=== PATIENT | male | born 1955 | race Caucasian/White ===

== ENCOUNTER 2019-02-10 19:34 | Inpatient (IN) | payer OTHER ==
[~2019-02-10] VITALS: Ht 177.8 cm; Wt 45.6 kg
[2019-02-10] MEDS ORDERED: IV NORMAL SALINE 1,000ML 1,000 ML IV SCH (20:11)
[2019-02-10 20:25] LABS: BASO # 0.1 x10^3/uL (0.0-0.2); BASO % 1 % (0-3); EOS # 0.1 x10^3/uL (0.0-0.7); EOS % 2 % (0-3); HEMATOCRIT 43.7 % (39.0-53.0); HEMOGLOBIN 15.1 g/dL (13.0-17.5); LYMPH # 1.2 x10^3/uL (1.0-4.8); LYMPH % 21 % (24-48); MEAN CORPUSCULAR HEMOGLOBIN 32 pg (25-35); MEAN CORPUSCULAR HGB CONC 35 g/dL (31-37); MEAN CORPUSCULAR VOLUME 92 fL (79-100); MONO # 0.5 x10^3/uL (0.0-1.1); MONO % 9 % (0-9); NEUT # 3.8 x10^3uL (1.8-7.7); NEUT % 67 % (31-73); PLATELET COUNT 224 x10^3/uL (140-400); RED BLOOD COUNT 4.76 x10^6/uL (4.30-5.70); RED CELL DISTRIBUTION WIDTH 13.9 % (11.5-14.5); WHITE BLOOD COUNT 5.8 x10^3/uL (4.0-11.0)
--- NOTE | 2019-02-10 20:41 | PHYS DOC ---
Adult General Chief Complaint Chief Complaint: PSYCH EVALUATION HPI HPI Patient is a 63-year-old male who presents from nursing facility to be cleared medically for admission into [facility]. Patient indicates that he has been having some difficulties at the nursing facility because they have been placing him with new roommates that he has not been familiar with and states that his most recent one is homosexual. Patient states that it makes him feel nervous as he is not sure what he might wake up to. He denies any chest pain or shortness breath. He also denies any fever. He does indicate that he has had some thoughts of self-harm because he feels very helpless.[] Review of Systems Review of Systems Constitutional: Denies fever or chills [] Respiratory: Denies cough or shortness of breath [] Cardiovascular: No additional information not addressed in HPI [] GI: Denies abdominal pain, nausea, vomiting, bloody stools or diarrhea [] Integument: Denies rash or skin lesions [] Neurologic: Denies headache, focal weakness or sensory changes [] All other systems were reviewed and found to be within normal limits, except as documented in this note. Current Medications Current Medications Current Medications Medications (Trade) Dose Ordered Sig/Jacqueline Start Time Stop Time Status Last Admin Dose Admin Sodium Chloride 1,000 ml @ 1,000 mls/hr Q1H 02/10/19 20:11 02/10/19 21:10 UNV 02/10/19 20:18 1,000 MLS/HR Physical Exam Physical Exam Constitutional: Well developed, well nourished, no acute distress, non-toxic appearance. [] HENT: Normocephalic, atraumatic, bilateral external ears normal, oropharynx moist, no oral exudates, nose normal. [] Eyes: PERRLA, EOMI, conjunctiva normal. [] Neck: Normal range of motion, no tenderness, supple. [] Cardiovascular:Heart rate regular rhythm [] Lungs & Thorax: Bilateral breath sounds clear to auscultation [] Abdomen: Bowel sounds normal, soft, no tenderness. [] Skin: Warm, dry, no erythema, no rash. [] Extremities: No tenderness, no cyanosis, no clubbing, ROM intact. [] Neurologic: Alert and oriented X 3, no focal deficits noted. [] Current Patient Data Lab Results Laboratory Tests Test 02/10/19 20:05 White Blood Count 5.8 x10^3/uL (4.0-11.0) Red Blood Count 4.76 x10^6/uL (4.30-5.70) Hemoglobin 15.1 g/dL (13.0-17.5) Hematocrit 43.7 % (39.0-53.0) Mean Corpuscular Volume 92 fL (79-100) Mean Corpuscular Hemoglobin 32 pg (25-35) Mean Corpuscular Hemoglobin Concent 35 g/dL (31-37) Red Cell Distribution Width 13.9 % (11.5-14.5) Platelet Count 224 x10^3/uL (140-400) Neutrophils (%) (Auto) 67 % (31-73) Lymphocytes (%) (Auto) 21 % (24-48) L Monocytes (%) (Auto) 9 % (0-9) Eosinophils (%) (Auto) 2 % (0-3) Basophils (%) (Auto) 1 % (0-3) Neutrophils # (Auto) 3.8 x10^3uL (1.8-7.7) Lymphocytes # (Auto) 1.2 x10^3/uL (1.0-4.8) Monocytes # (Auto) 0.5 x10^3/uL (0.0-1.1) Eosinophils # (Auto) 0.1 x10^3/uL (0.0-0.7) Basophils # (Auto) 0.1 x10^3/uL (0.0-0.2) EKG EKG [] Radiology/Procedures Radiology/Procedures [] Course & Med Decision Making Course & Med Decision Making Pertinent Labs and Imaging studies reviewed. (See chart for details) [] Dragon Disclaimer Dragon Disclaimer This electronic medical record was generated, in whole or in part, using a voice recognition dictation system. Departure Departure: Impression: Primary Impression: Depression Additional Impression: Medical clearance for psychiatric admission Disposition: ADMITTED INPATIENT Admitting Physician: Other (Dr. Golden) Condition: STABLE Referrals: SANDRA ALDRICH DO (PCP) Problem Qualifiers Primary Impression: Depression Depression Type: unspecified Qualified Codes: F32.9 - Major depressive disorder, single episode, unspecified JAVED WESTFALL Jr., DO February 10, 2019 20:41
[2019-02-10 20:43] LABS: ALBUMIN 3.5 g/dL (3.4-5.0); CALCIUM 9.5 mg/dL (8.5-10.1); CREATININE 1.1 mg/dL (0.7-1.3); GFR 68.1; POTASSIUM 4.4 mmol/L (3.5-5.1); TOTAL BILIRUBIN 0.3 mg/dL (0.2-1.0)
[2019-02-10 22:13] VITALS: BP 176/93
--- NOTE | 2019-02-10 23:19 | PDOC ---
Exam Note: Hakan Note: Please also refer to the separate dictated note~for this date of service dictated separately. Discussed the patient with Nursing staff reviewed the chart.~Reviewed interim history and current functioning. Reviewed vital signs,~Labs/ Radiology~and current medications noted below. Continue current treatment with the changes noted in the dictated addendum note Assessment: Vital Signs: Vital Signs Date Time Temp Pulse Resp B/P (MAP) Pulse Ox O2 Delivery O2 Flow Rate FiO2 02/10/19 22:13 97.2 67 18 176/93 (120) 98 Room Air Labs: Laboratory Tests Test 02/10/19 20:05 White Blood Count 5.8 x10^3/uL (4.0-11.0) Red Blood Count 4.76 x10^6/uL (4.30-5.70) Hemoglobin 15.1 g/dL (13.0-17.5) Hematocrit 43.7 % (39.0-53.0) Mean Corpuscular Volume 92 fL (79-100) Mean Corpuscular Hemoglobin 32 pg (25-35) Mean Corpuscular Hemoglobin Concent 35 g/dL (31-37) Red Cell Distribution Width 13.9 % (11.5-14.5) Platelet Count 224 x10^3/uL (140-400) Neutrophils (%) (Auto) 67 % (31-73) Lymphocytes (%) (Auto) 21 % (24-48) L Monocytes (%) (Auto) 9 % (0-9) Eosinophils (%) (Auto) 2 % (0-3) Basophils (%) (Auto) 1 % (0-3) Neutrophils # (Auto) 3.8 x10^3uL (1.8-7.7) Lymphocytes # (Auto) 1.2 x10^3/uL (1.0-4.8) Monocytes # (Auto) 0.5 x10^3/uL (0.0-1.1) Eosinophils # (Auto) 0.1 x10^3/uL (0.0-0.7) Basophils # (Auto) 0.1 x10^3/uL (0.0-0.2) Sodium Level 142 mmol/L (136-145) Potassium Level 4.4 mmol/L (3.5-5.1) Chloride Level 104 mmol/L (98-107) Carbon Dioxide Level 35 mmol/L (21-32) H Anion Gap 3 (6-14) L Blood Urea Nitrogen 22 mg/dL (8-26) Creatinine 1.1 mg/dL (0.7-1.3) Estimated GFR (Cockcroft-Gault) 68.1 BUN/Creatinine Ratio 20 (6-20) Glucose Level 96 mg/dL (70-99) Calcium Level 9.5 mg/dL (8.5-10.1) Total Bilirubin 0.3 mg/dL (0.2-1.0) Aspartate Amino Transferase (AST) 18 U/L (15-37) Alanine Aminotransferase (ALT) 23 U/L (16-63) Alkaline Phosphatase 100 U/L (46-116) Total Protein 7.0 g/dL (6.4-8.2) Albumin 3.5 g/dL (3.4-5.0) Albumin/Globulin Ratio 1.0 (1.0-1.7) Ethyl Alcohol Level < 10 mg/dL (0-10) Current Medications: Meds: Current Medications Sodium Chloride 1,000 ml @ 1,000 mls/hr Q1H IV Last administered on 02/10/19at 20:18; Start 02/10/19 at 20:11; Stop 02/10/19 at 21:59; Status DC I have reviewed the current psychotropics carefully including drug interactions. Risk benefit ratio favors no change other than as noted in my dictated progress note. RASHAWN GRAVES MD February 10, 2019 23:19
[2019-02-11] MEDS ORDERED: ACET325T9 PO (00:54)
[2019-02-11] MEDS ORDERED: SENN1TAB29 PO (00:54)
[2019-02-11] MEDS ORDERED: GLYC1SUP31 RC (00:54)
[2019-02-11] MEDS ORDERED: MAGN2400 PO (00:54)
[2019-02-11] MEDS ORDERED: NA P133E2 RC (00:54)
[2019-02-11] MEDS ORDERED: DOCU-109 PO (00:54)
[2019-02-11] MEDS ORDERED: LACT10SO26 PO (00:54)
[2019-02-11] MEDS ORDERED: MAG HYDROX/AL HYDROX/SIMETH 30 ML ORAL.SUSP PO PRN (01:00)
[2019-02-11] MEDS ORDERED: MAGNESIUM HYDROXIDE 2,400 MG/30 ML ORAL.SUSP. PO PRN (01:00)
[2019-02-11] MEDS ORDERED: METHYL SALICYLATE/MENTHOL TOPICAL OINTMENT 29GM TUBE. TP PRN (01:00)
[2019-02-11] MEDS ORDERED: ACETAMINOPHEN 325 MG TABLET PO PRN (01:00)
[2019-02-11] MEDS ORDERED: GLYCERIN ADULT 1 SUPP.RECT. RC PRN (05:30)
[2019-02-11] MEDS ORDERED: SODIUM PHOSPHATES 19/7GM 133 ML ENEMA. RC PRN (05:30)
[2019-02-11] MEDS ORDERED: LACTULOSE 20 GM/30 ML SOLUTION. PO PRN (05:30)
[2019-02-11] MEDS ORDERED: ACETAMINOPHEN 325 MG TABLET PO SCH (05:30)
[2019-02-11 06:28] VITALS: BP 128/78
[2019-02-11 06:46] LABS: BACTERIA,URINE 0 /HPF (0-FEW); BILIRUBIN,URINE NEG (NEG); CLARITY,URINE CLEAR; COLOR,URINE YELLOW; GLUCOSE,URINE NEG (NEG); NITRITE,URINE NEG (NEG); RBC,URINE 0 /HPF (0-2); UROBILINOGEN,URINE 0.2 mg/dL (0.2 mg/dL); WBC,URINE RARE /HPF (0-4)
[2019-02-11] MEDS: DOCUSATE SODIUM 100 MG CAPSULE PO SCH (07:53)
--- NOTE | 2019-02-11 11:23 | EKG ---
[address] [address] Test Date: 2019-02-10 Test Time: 19:52:31 Pat Name: SALAZAR GALLAGHER Department: Room: Gender: M Internal Medicine Specialist: ELLIOTT : 1955 Requested By: JAVED WESTFALL Order Number: [id number] Reading MD: Measurements Intervals [place] Rate: 61 P: 62 FL: 148 QRS: -57 QRSD: 96 T: 38 QT: 424 QTc: 433 Interpretive Statements SINUS RHYTHM ABNORMAL LEFT AXIS DEVIATION LEFT ANTERIOR FASCICULAR BLOCK ABNORMAL ECG RI6.01 No previous ECG available for comparison
[2019-02-11 13:18] LABS: THYROID STIM HORMONE (TSH) 9.563 uIU/mL (0.358-3.740)
[2019-02-11 16:16] VITALS: BP 146/80
[2019-02-11 17:07] LABS: THYROXINE 9.7 ug/dL (4.5-12.0)
--- NOTE | 2019-02-11 19:58 | PDOC ---
Exam Note: Hakan Note: Admission Date: February 10, 2019 at 21:51 * A recertification for continued Inpatient Psychiatric Admission must be done on Day 12, Day 18 and Day 30. Please also refer to the separate dictated note~for this date of service dictated separately.~Patient seen individually. Discussed the patient with Nursing staff reviewed the chart.~Reviewed interim history and current functioning. Reviewed vital signs,~Labs/ Radiology~and current medications noted below. Continue current treatment with the changes noted in the dictated addendum note Assessment: Vital Signs: Vital Signs Date Time Temp Pulse Resp B/P (MAP) Pulse Ox O2 Delivery O2 Flow Rate FiO2 02/11/19 16:16 97.5 56 18 146/80 (102) 99 02/10/19 22:13 Room Air I&O Intake and Output 02/11/19 07:00 Intake Total 1120 ml Balance 1120 ml Intake Oral 120 ml IV Total 1000 ml Labs: Laboratory Tests Test 02/10/19 20:05 02/11/19 05:50 White Blood Count 5.8 x10^3/uL (4.0-11.0) Red Blood Count 4.76 x10^6/uL (4.30-5.70) Hemoglobin 15.1 g/dL (13.0-17.5) Hematocrit 43.7 % (39.0-53.0) Mean Corpuscular Volume 92 fL (79-100) Mean Corpuscular Hemoglobin 32 pg (25-35) Mean Corpuscular Hemoglobin Concent 35 g/dL (31-37) Red Cell Distribution Width 13.9 % (11.5-14.5) Platelet Count 224 x10^3/uL (140-400) Neutrophils (%) (Auto) 67 % (31-73) Lymphocytes (%) (Auto) 21 % (24-48) L Monocytes (%) (Auto) 9 % (0-9) Eosinophils (%) (Auto) 2 % (0-3) Basophils (%) (Auto) 1 % (0-3) Neutrophils # (Auto) 3.8 x10^3uL (1.8-7.7) Lymphocytes # (Auto) 1.2 x10^3/uL (1.0-4.8) Monocytes # (Auto) 0.5 x10^3/uL (0.0-1.1) Eosinophils # (Auto) 0.1 x10^3/uL (0.0-0.7) Basophils # (Auto) 0.1 x10^3/uL (0.0-0.2) Sodium Level 142 mmol/L (136-145) Potassium Level 4.4 mmol/L (3.5-5.1) Chloride Level 104 mmol/L (98-107) Carbon Dioxide Level 35 mmol/L (21-32) H Anion Gap 3 (6-14) L Blood Urea Nitrogen 22 mg/dL (8-26) Creatinine 1.1 mg/dL (0.7-1.3) Estimated GFR (Cockcroft-Gault) 68.1 BUN/Creatinine Ratio 20 (6-20) Glucose Level 96 mg/dL (70-99) Calcium Level 9.5 mg/dL (8.5-10.1) Total Bilirubin 0.3 mg/dL (0.2-1.0) Aspartate Amino Transferase (AST) 18 U/L (15-37) Alanine Aminotransferase (ALT) 23 U/L (16-63) Alkaline Phosphatase 100 U/L (46-116) Total Protein 7.0 g/dL (6.4-8.2) Albumin 3.5 g/dL (3.4-5.0) Albumin/Globulin Ratio 1.0 (1.0-1.7) Triglycerides Level 88 mg/dL (0-150) Cholesterol Level 183 mg/dL (0-200) LDL Cholesterol, Calculated 94 mg/dL (0-100) VLDL Cholesterol, Calculated 17 mg/dL (0-40) Non-HDL Cholesterol Calculated 111 mg/dL (0-129) HDL Cholesterol 72 mg/dL (40-60) H Cholesterol/HDL Ratio 2.0 Thyroid Stimulating Hormone (TSH) 9.563 uIU/mL (0.358-3.740) Thyroxine (T4) 9.7 ug/dL (4.5-12.0) Total Triiodothyronine (TT3) 112 ng/dL (71-180) Ethyl Alcohol Level < 10 mg/dL (0-10) Treponema pallidum Antibody Nonreactive (Nonreactive) Urine Collection Type Unknown Urine Color Yellow Urine Clarity Clear Urine pH 7.0 Urine Specific [place] 1.020 Urine Protein Neg (NEG-TRACE) Urine Glucose (UA) Neg mg/dL (NEG) Urine Ketones (Stick) Neg mg/dL (NEG) Urine Blood Neg (NEG) Urine Nitrite Neg (NEG) Urine Bilirubin Neg (NEG) Urine Urobilinogen Dipstick 0.2 mg/dL (0.2 mg/dL) Urine Leukocyte Esterase Neg (NEG) Urine RBC 0 /HPF (0-2) Urine WBC Rare /HPF (0-4) Urine Squamous Epithelial Cells None /LPF Urine Bacteria 0 /HPF (0-FEW) Urine Mucus Slight /LPF Current Medications: Meds: Current Medications Sodium Chloride 1,000 ml @ 1,000 mls/hr Q1H IV Last administered on 02/10/19at 20:18; Start 02/10/19 at 20:11; Stop 02/10/19 at 21:59; Status DC Acetaminophen (Tylenol) 650 mg PRN Q6HRS PRN PO PAIN / TEMP; Start 02/11/19 at 01:00; Status Cancel Multi-Ingredient Ointment (Analgesic [place]) 1 kyle PRN QID PRN TP MUSCLE PAIN; Start 02/11/19 at 01:00 Al Hydroxide/Mg Hydroxide (Mylanta Plus Xs) 15 ml PRN AFTMEALHC PRN PO DYSPEPSIA; Start 02/11/19 at 01:00 Magnesium Hydroxide (Milk Of Magnesia) 2,400 mg PRN QHS PRN PO CONSTIPATION; Start 02/11/19 at 01:00; Status Cancel Acetaminophen (Tylenol) 325 mg PRN Q4HRS PO ; Start 02/11/19 at 05:30 Sodium Biphosphate/ Sodium Phosphate (Fleet Adult) 133 ml PRN Q24HRS PRN RC CONSTIPATION; Start 02/11/19 at 05:30 Senna/Docusate Sodium (Senna Plus) 1 tab HS PO ; Start 02/11/19 at 21:00 Docusate Sodium (Colace) 100 mg DAILY PO Last administered on 02/11/19at 07:53; Start 02/11/19 at 09:00 Glycerin (Sani-Supp Adult) 1 supp PRN Q24HRS PRN RC CONSTIPATION; Start 02/11/19 at 05:30 Lactulose (Lactulose) 20 gm PRN Q24HRS PRN PO CONSTIPATION; Start 02/11/19 at 05:30 Magnesium Hydroxide (Milk Of Magnesia) 2,400 mg PRN Q24HRS PRN PO CONSTIPATION; Start 02/11/19 at 05:30 Risperidone (RisperDAL) 1 mg DAILY SL ; Start 02/12/19 at 09:00 Risperidone (RisperDAL CONSTA) 25 mg Q2WKS IM ; Start 02/14/19 at 09:00 Active Scripts Active Reported Tylenol (Acetaminophen) 325 Mg Tablet 1 Tab PO PRN Q4HRS Senna Laxative Tablet (Sennosides/Docusate Sodium) 1 Each Tablet 1 Each PO HS Milk Of Magnesia (Magnesium Hydroxide) 2,400 Mg/10 Ml Oral.susp 2,400 Mg PO PRN Q24HRS PRN Lactulose 10 Gm/15 Ml Solution 30 Ml PO PRN Q24HRS PRN Laxative Suppository (Glycerin) 1 Each Supp.rect 1 Each RC PRN Q24HRS PRN Fleet Enema (Na Phos,M-B/Na Phos,Di-Ba) 133 Ml Enema 133 Ml RC PRN Q24HRS PRN Colace (Docusate Sodium) 100 Mg Capsule 100 Mg PO DAILY I have reviewed the current psychotropics carefully including drug interactions. Risk benefit ratio favors no change other than as noted in my dictated progress note. Diagnosis: Problems: (1) Anxiety disorder (2) Bipolar affective, mixed, sev w/ psych (3) Impulse control disorder (4) Schizoaffective disorder, chronic condition with acute exacerbation RASHAWN GRAVES MD February 11, 2019 19:58
[2019-02-11] MEDS: SENNOSIDES/DOCUSATE 8.6/50MG TABLET. PO SCH (21:25)
[2019-02-12 06:20] VITALS: BP 150/72
[2019-02-12] MEDS: risperiDONE ORAL 1 MG/ML 30ml BOTTLE. SL SCH (07:57)
[2019-02-12] MEDS: DOCUSATE SODIUM 100 MG CAPSULE PO SCH ×2 (07:57→08:02)
--- NOTE | 2019-02-12 14:10 | HP ---
ADMIT DATE: 02/11/2019 PSYCHIATRIC ADMISSION HISTORY/EVALUATION This late entry 02/11/2019 covers elements not covered in my initial note on 02/11/2019. I met with the patient in the evening of 02/11/2019. Previously discussed with Gwen Block, business support coordinator to review referral information from [facility] in [place], [place] by his primary care physician on account of an acute exacerbation of his schizophrenia, chronic, undifferentiated type. IDENTIFYING DATA: The patient is a 63-year-old male referred to us from [facility] by his primary care physician on account of worsening psychotic symptoms, voices telling him not to take his medications, being hyperverbal, being preoccupied and obsessed with homosexuals running around the custodial. He has been actively hallucinating and reportedly made suicidal threats to suffocate himself because he was overwhelmed with all of the above. CHIEF COMPLAINT: "Yes, there are homosexuals, they just need to tell me what is happening. I don't need any medications. The voices tell me I don't need them." HISTORY OF PRESENT ILLNESS: The patient has a long history of schizophrenia versus schizoaffective disorder, bipolar type. He has been residing at the above facility for some time, but recently getting extremely hyperverbal, manic with sleep and appetite changes, refusing his psychotropics, acutely psychotic, and then threatening to end his life. He has had sleep and appetite changes. No homicidal ideation. PAST PSYCHIATRIC HISTORY: As above. MEDICAL HISTORY: He is in a wheelchair with bilateral below-knee amputation, history of CVA, hypertension, hypothyroidism, weakness, weight loss, chronic constipation. ACCU-CHEKS: None. ALLERGIES: PENICILLIN. CODE STATUS: Full code. CURRENT PSYCHOTROPICS. He has not been taking any psychotropics refusing it because "God tells me not to take them." FAMILY HISTORY: Noncontributory. SOCIAL HISTORY: No alcohol or drug abuse history. MENTAL STATUS EXAMINATION: The patient was seen individually evening of 02/11/2019. He is reasonably oriented, seated in a wheelchair, extremely paranoid, psychotic, talking about the above at great length with me. Speech coherent, somewhat rapid. Abstraction fair, computation impaired, language function intact, attention span short. Mood and affect remains labile. No active suicidal or homicidal ideation, but he remains psychotic. IMPRESSION: Schizophrenia, chronic, undifferentiated with acute exacerbation, schizoaffective disorder, bipolar type, mixed with psychotic features; anxiety disorder, unspecified; impulse control disorder, unspecified. Rest as above. PLAN: Admit to Geropsychiatry Unit at [facility]. I will see the patient daily individually from a psychiatric standpoint. Medical followup with Dr. Arriaga. We will go ahead and start Risperdal liquid 1 mg daily and if he tolerates it, we will go ahead and start the Risperdal Consta 25 mg IM q.2 weeks given his noncompliance with psychotropics. Further adjustments depending on his clinical progress and response to initial treatment. MAN Enrique GRAVES MD DR: COLTEN/carey JOB#: [id number] / [id number]
[2019-02-12 14:11] LABS: HEMOGLOBIN A1C 4.9 % (4.8-5.6)
[2019-02-12 16:08] VITALS: BP 159/83
[2019-02-12] MEDS: SENNOSIDES/DOCUSATE 8.6/50MG TABLET. PO SCH ×2 (19:27→20:26)
--- NOTE | 2019-02-12 22:01 | PDOC ---
Exam Note: Hakan Note: Please also refer to the separate dictated note~for this date of service dictated separately.~Patient seen individually. Discussed the patient with Nursing staff reviewed the chart.~Reviewed interim history and current functioning. Reviewed vital signs,~Labs/ Radiology~and current medications noted below. Continue current treatment with the changes noted in the dictated addendum note Assessment: Vital Signs: Vital Signs Date Time Temp Pulse Resp B/P (MAP) Pulse Ox O2 Delivery O2 Flow Rate FiO2 02/12/19 16:08 97.3 51 16 159/83 (108) 95 02/10/19 22:13 Room Air I&O Intake and Output 02/12/19 07:00 Intake Total 1200 ml Balance 1200 ml Intake Oral 1200 ml Albumin 0 ml # Bowel Movements 1 Current Medications: Meds: Current Medications Sodium Chloride 1,000 ml @ 1,000 mls/hr Q1H IV Last administered on 02/10/19at 20:18; Start 02/10/19 at 20:11; Stop 02/10/19 at 21:59; Status DC Acetaminophen (Tylenol) 650 mg PRN Q6HRS PRN PO PAIN / TEMP; Start 02/11/19 at 01:00; Status Cancel Multi-Ingredient Ointment (Analgesic [place]) 1 kyle PRN QID PRN TP MUSCLE PAIN; Start 02/11/19 at 01:00 Al Hydroxide/Mg Hydroxide (Mylanta Plus Xs) 15 ml PRN AFTMEALHC PRN PO DYSPEPSIA; Start 02/11/19 at 01:00 Magnesium Hydroxide (Milk Of Magnesia) 2,400 mg PRN QHS PRN PO CONSTIPATION; Start 02/11/19 at 01:00; Status Cancel Acetaminophen (Tylenol) 325 mg PRN Q4HRS PO ; Start 02/11/19 at 05:30 Sodium Biphosphate/ Sodium Phosphate (Fleet Adult) 133 ml PRN Q24HRS PRN RC CONSTIPATION; Start 02/11/19 at 05:30 Senna/Docusate Sodium (Senna Plus) 1 tab HS PO Last administered on 02/11/19at 21:25; Start 02/11/19 at 21:00 Docusate Sodium (Colace) 100 mg DAILY PO Last administered on 02/11/19at 07:53; Start 02/11/19 at 09:00 Glycerin (Sani-Supp Adult) 1 supp PRN Q24HRS PRN RC CONSTIPATION; Start 02/11/19 at 05:30 Lactulose (Lactulose) 20 gm PRN Q24HRS PRN PO CONSTIPATION; Start 02/11/19 at 05:30 Magnesium Hydroxide (Milk Of Magnesia) 2,400 mg PRN Q24HRS PRN PO CONSTIPATION; Start 02/11/19 at 05:30 Risperidone (RisperDAL) 1 mg DAILY SL Last administered on 02/12/19at 07:57; Start 02/12/19 at 09:00 Risperidone (RisperDAL CONSTA) 25 mg Q2WKS IM ; Start 02/14/19 at 09:00 Active Scripts Active Reported Tylenol (Acetaminophen) 325 Mg Tablet 1 Tab PO PRN Q4HRS Senna Laxative Tablet (Sennosides/Docusate Sodium) 1 Each Tablet 1 Each PO HS Milk Of Magnesia (Magnesium Hydroxide) 2,400 Mg/10 Ml Oral.susp 2,400 Mg PO PRN Q24HRS PRN Lactulose 10 Gm/15 Ml Solution 30 Ml PO PRN Q24HRS PRN Laxative Suppository (Glycerin) 1 Each Supp.rect 1 Each RC PRN Q24HRS PRN Fleet Enema (Na Phos,M-B/Na Phos,Di-Ba) 133 Ml Enema 133 Ml RC PRN Q24HRS PRN Colace (Docusate Sodium) 100 Mg Capsule 100 Mg PO DAILY I have reviewed the current psychotropics carefully including drug interactions. Risk benefit ratio favors no change other than as noted in my dictated progress note. Diagnosis: Problems: (1) Anxiety disorder (2) Bipolar affective, mixed, sev w/ psych (3) Impulse control disorder (4) Schizoaffective disorder, chronic condition with acute exacerbation RASHAWN GRAVES MD February 12, 2019 22:01
[2019-02-13 05:48] VITALS: BP 142/79
[2019-02-13] MEDS: risperiDONE ORAL 1 MG/ML 30ml BOTTLE. SL SCH (07:45)
[2019-02-13] MEDS: DOCUSATE SODIUM 100 MG CAPSULE PO SCH (07:46)
[2019-02-13] MEDS: MAGNESIUM HYDROXIDE 2,400 MG/30 ML ORAL.SUSP. PO PRN (09:52)
[2019-02-13 15:35] VITALS: BP 121/81
[2019-02-13] MEDS: SENNOSIDES/DOCUSATE 8.6/50MG TABLET. PO SCH (20:23)
--- NOTE | 2019-02-13 22:28 | PDOC ---
Exam Note: Hakan Note: Please also refer to the separate dictated note~for this date of service dictated separately.~Patient seen individually. Discussed the patient with Nursing staff reviewed the chart.~Reviewed interim history and current functioning. Reviewed vital signs,~Labs/ Radiology~and current medications noted below. Continue current treatment with the changes noted in the dictated addendum note Assessment: Vital Signs: Vital Signs Date Time Temp Pulse Resp B/P (MAP) Pulse Ox O2 Delivery O2 Flow Rate FiO2 02/13/19 15:35 97.3 72 16 121/81 (94) 96 02/10/19 22:13 Room Air I&O Intake and Output 02/13/19 06:59 Intake Total 820 ml Balance 820 ml Intake Oral 820 ml # Voids 1 # Bowel Movements 1 Current Medications: Meds: Current Medications Sodium Chloride 1,000 ml @ 1,000 mls/hr Q1H IV Last administered on 02/10/19at 20:18; Start 02/10/19 at 20:11; Stop 02/10/19 at 21:59; Status DC Acetaminophen (Tylenol) 650 mg PRN Q6HRS PRN PO PAIN / TEMP; Start 02/11/19 at 01:00; Status Cancel Multi-Ingredient Ointment (Analgesic [place]) 1 kyle PRN QID PRN TP MUSCLE PAIN; Start 02/11/19 at 01:00 Al Hydroxide/Mg Hydroxide (Mylanta Plus Xs) 15 ml PRN AFTMEALHC PRN PO DYSP EPSIA; Start 02/11/19 at 01:00 Magnesium Hydroxide (Milk Of Magnesia) 2,400 mg PRN QHS PRN PO CONSTIPATION; Start 02/11/19 at 01:00; Status Cancel Acetaminophen (Tylenol) 325 mg PRN Q4HRS PO ; Start 02/11/19 at 05:30 Sodium Biphosphate/ Sodium Phosphate (Fleet Adult) 133 ml PRN Q24HRS PRN RC CONSTIPATION; Start 02/11/19 at 05:30 Senna/Docusate Sodium (Senna Plus) 1 tab HS PO Last administered on 02/13/19at 20:23; Start 02/11/19 at 21:00 Docusate Sodium (Colace) 100 mg DAILY PO Last administered on 02/13/19at 07:46; Start 02/11/19 at 09:00 Glycerin (Sani-Supp Adult) 1 supp PRN Q24HRS PRN RC CONSTIPATION; Start 02/11/19 at 05:30 Lactulose (Lactulose) 20 gm PRN Q24HRS PRN PO CONSTIPATION; Start 02/11/19 at 05:30 Magnesium Hydroxide (Milk Of Magnesia) 2,400 mg PRN Q24HRS PRN PO CONSTIPATION Last administered on 02/13/19at 09:52; Start 02/11/19 at 05:30 Risperidone (RisperDAL) 1 mg DAILY SL Last administered on 02/13/19at 07:45; Start 02/12/19 at 09:00 Risperidone (RisperDAL CONSTA) 25 mg Q2WKS IM ; Start 02/14/19 at 09:00 Active Scripts Active Reported Tylenol (Acetaminophen) 325 Mg Tablet 1 Tab PO PRN Q4HRS Senna Laxative Tablet (Sennosides/Docusate Sodium) 1 Each Tablet 1 Each PO HS Milk Of Magnesia (Magnesium Hydroxide) 2,400 Mg/10 Ml Oral.susp 2,400 Mg PO PRN Q24HRS PRN Lactulose 10 Gm/15 Ml Solution 30 Ml PO PRN Q24HRS PRN Laxative Suppository (Glycerin) 1 Each Supp.rect 1 Each RC PRN Q24HRS PRN Fleet Enema (Na Phos,M-B/Na Phos,Di-Ba) 133 Ml Enema 133 Ml RC PRN Q24HRS PRN Colace (Docusate Sodium) 100 Mg Capsule 100 Mg PO DAILY I have reviewed the current psychotropics carefully including drug interactions. Risk benefit ratio favors no change other than as noted in my dictated progress note. Diagnosis: Problems: (1) Anxiety disorder (2) Bipolar affective, mixed, sev w/ psych (3) Impulse control disorder (4) Schizoaffective disorder, chronic condition with acute exacerbation RASHAWN GRAVES MD February 13, 2019 22:28
[2019-02-14 05:46] VITALS: BP 142/81
[2019-02-14] MEDS: DOCUSATE SODIUM 100 MG CAPSULE PO SCH (08:25)
[2019-02-14] MEDS: SENNOSIDES/DOCUSATE 8.6/50MG TABLET. PO SCH ×3 (08:25→19:53)
[2019-02-14] MEDS: risperiDONE ORAL 1 MG/ML 30ml BOTTLE. SL SCH (08:25)
[2019-02-14] MEDS: risperiDONE MICROSPHERES 25 MG/2 ML DISP.SYRIN. IM SCH (08:29)
[2019-02-14] MEDS: MAGNESIUM HYDROXIDE 2,400 MG/30 ML ORAL.SUSP. PO PRN (15:44)
[2019-02-14 15:57] VITALS: BP 138/85
--- NOTE | 2019-02-14 18:57 | PN ---
DATE: 02/12/2019 PSYCHIATRIC PROGRESS NOTE This is a late entry 02/12/2019, covers elements not covered in my initial note. SUBJECTIVE: I met with the patient individually in the evening. He slept 6-3/4 hours previous night. He has been withdrawn, spends much time in his room in bed, refused medications and Risperdal is being given, mixed in fluids as he consented at admission. Will have neuropsychology consult with Dr. Angel to assess capacity to make decisions as possible guardianship proceedings and consider Risperdal Consta if he agrees to it in due course. REVIEW OF SYSTEMS: Impaired ambulation, in wheelchair. No CV, , pulmonary, eye system symptoms on review. MENTAL STATUS EXAM: Reasonably oriented. Speech has some latency, coherent. Abstraction fair, computation impaired, language function intact, attention span short. Mood and affect remains somewhat withdrawn, but he was still quite psychotic, as I met with him individually and discussed at length. Discussed medication compliance with him individually. LABORATORY DATA: Reviewed. IMPRESSION: Schizoaffective disorder, bipolar type, mixed with psychotic features. Rest unchanged. PLAN: Continue current psychotropics, encourage compliance. MAN Enrique GRAVES MD DR: COLTEN/carey JOB#: [id number] / [id number]
--- NOTE | 2019-02-14 20:23 | PN ---
DATE: 02/13/2019 PSYCHIATRIC PROGRESS NOTE This late entry 02/13/2019 covers elements not covered in my initial note. SUBJECTIVE: I met with the patient in the evening of 02/13/2019 staffed at a treatment team meeting with the entire team in the morning. Reviewed his history, noncompliance with treatment, minimization of his symptoms and diagnosis. He remains hyperverbal, slept 5-1/2 hours. Appetite 75%, noncompliant with medications, withdrawn, delusional. REVIEW OF SYSTEMS: Ambulation impaired, in wheelchair due to his bilateral below-knee amputation. No CV, , pulmonary, eye, ENT system symptoms on review. MENTAL STATUS EXAM: Oriented reasonably. Speech has some latency, coherent. Abstraction fair, computation impaired, language function intact, attention span short. Mood and affect somewhat withdrawn. LABORATORY DATA: Reviewed. IMPRESSION: Unchanged from initial note. PLAN: Continue oral Risperdal and we will start Risperdal Consta if he agrees to it. Encouraged compliance, addressed at length with him individually. MAN Enrique GRAVES MD DR: COLTEN/carey JOB#: [id number] / [id number]
--- NOTE | 2019-02-14 22:37 | PDOC ---
Exam Note: Hakan Note: Please also refer to the separate dictated note~for this date of service dictated separately.~Patient seen individually. Discussed the patient with Nursing staff reviewed the chart.~Reviewed interim history and current functioning. Reviewed vital signs,~Labs/ Radiology~and current medications noted below. Continue current treatment with the changes noted in the dictated addendum note Assessment: Vital Signs: Vital Signs Date Time Temp Pulse Resp B/P (MAP) Pulse Ox O2 Delivery O2 Flow Rate FiO2 02/14/19 15:57 98.3 68 20 138/85 (102) 97 02/10/19 22:13 Room Air I&O Intake and Output 02/14/19 06:59 Intake Total 960 ml Balance 960 ml Intake Oral 960 ml # Voids 1 Current Medications: Meds: Current Medications Sodium Chloride 1,000 ml @ 1,000 mls/hr Q1H IV Last administered on 02/10/19at 20:18; Start 02/10/19 at 20:11; Stop 02/10/19 at 21:59; Status DC Acetaminophen (Tylenol) 650 mg PRN Q6HRS PRN PO PAIN / TEMP; Start 02/11/19 at 01:00; Status Cancel Multi-Ingredient Ointment (Analgesic [place]) 1 kyle PRN QID PRN TP MUSCLE PAIN; Start 02/11/19 at 01:00 Al Hydroxide/Mg Hydroxide (Mylanta Plus Xs) 15 ml PRN AFTMEALHC PRN PO DYSPEPSIA; Start 02/11/19 at 01:00 Magnesium Hydroxide (Milk Of Magnesia) 2,400 mg PRN QHS PRN PO CONSTIPATION; Start 02/11/19 at 01:00; Status Cancel Acetaminophen (Tylenol) 325 mg PRN Q4HRS PO ; Start 02/11/19 at 05:30 Sodium Biphosphate/ Sodium Phosphate (Fleet Adult) 133 ml PRN Q24HRS PRN RC CONSTIPATION; Start 02/11/19 at 05:30 Senna/Docusate Sodium (Senna Plus) 1 tab HS PO Last administered on 02/14/19at 19:53; Start 02/11/19 at 21:00 Docusate Sodium (Colace) 100 mg DAILY PO Last administered on 02/14/19at 08:25; Start 02/11/19 at 09:00 Glycerin (Sani-Supp Adult) 1 supp PRN Q24HRS PRN RC CONSTIPATION; Start 02/11/19 at 05:30 Lactulose (Lactulose) 20 gm PRN Q24HRS PRN PO CONSTIPATION; Start 02/11/19 at 05:30 Magnesium Hydroxide (Milk Of Magnesia) 2,400 mg PRN Q24HRS PRN PO CONSTIPATION Last administered on 02/14/19at 15:44; Start 02/11/19 at 05:30 Risperidone (RisperDAL) 1 mg DAILY SL Last administered on 02/14/19at 08:25; Start 02/12/19 at 09:00 Risperidone (RisperDAL CONSTA) 25 mg Q2WKS IM Last administered on 02/14/19at 08:29; Start 02/14/19 at 09:00 Active Scripts Active Reported Tylenol (Acetaminophen) 325 Mg Tablet 1 Tab PO PRN Q4HRS Senna Laxative Tablet (Sennosides/Docusate Sodium) 1 Each Tablet 1 Each PO HS Milk Of Magnesia (Magnesium Hydroxide) 2,400 Mg/10 Ml Oral.susp 2,400 Mg PO PRN Q24HRS PRN Lactulose 10 Gm/15 Ml Solution 30 Ml PO PRN Q24HRS PRN Laxative Suppository (Glycerin) 1 Each Supp.rect 1 Each RC PRN Q24HRS PRN Fleet Enema (Na Phos,M-B/Na Phos,Di-Ba) 133 Ml Enema 133 Ml RC PRN Q24HRS PRN Colace (Docusate Sodium) 100 Mg Capsule 100 Mg PO DAILY I have reviewed the current psychotropics carefully including drug interactions. Risk benefit ratio favors no change other than as noted in my dictated progress note. Diagnosis: Problems: (1) Anxiety disorder (2) Bipolar affective, mixed, sev w/ psych (3) Impulse control disorder (4) Schizoaffective disorder, chronic condition with acute exacerbation RASHAWN GRAVES MD February 14, 2019 22:37
[2019-02-15 05:41] VITALS: BP 155/82
[2019-02-15] MEDS: risperiDONE ORAL 1 MG/ML 30ml BOTTLE. SL SCH (09:00)
[2019-02-15] MEDS: DOCUSATE SODIUM 100 MG CAPSULE PO SCH (09:00)
[2019-02-15 15:35] VITALS: BP 121/80
[2019-02-15] MEDS: SENNOSIDES/DOCUSATE 8.6/50MG TABLET. PO SCH ×2 (19:43→21:00)
--- NOTE | 2019-02-15 22:32 | PDOC ---
Exam Note: Hakan Note: Please also refer to the separate dictated note~for this date of service dictated separately.~Patient seen individually. Discussed the patient with Nursing staff reviewed the chart.~Reviewed interim history and current functioning. Reviewed vital signs,~Labs/ Radiology~and current medications noted below. Continue current treatment with the changes noted in the dictated addendum note Assessment: Vital Signs: Vital Signs Date Time Temp Pulse Resp B/P (MAP) Pulse Ox O2 Delivery O2 Flow Rate FiO2 02/15/19 15:35 97.6 74 18 121/80 (94) 93 02/10/19 22:13 Room Air I&O Intake and Output 02/15/19 06:59 Intake Total 720 ml Balance 720 ml Intake Oral 720 ml Current Medications: Meds: Current Medications Sodium Chloride 1,000 ml @ 1,000 mls/hr Q1H IV Last administered on 02/10/19at 20:18; Start 02/10/19 at 20:11; Stop 02/10/19 at 21:59; Status DC Acetaminophen (Tylenol) 650 mg PRN Q6HRS PRN PO PAIN / TEMP; Start 02/11/19 at 01:00; Status Cancel Multi-Ingredient Ointment (Analgesic [place]) 1 kyle PRN QID PRN TP MUSCLE PAIN; Start 02/11/19 at 01:00 Al Hydroxide/Mg Hydroxide (Mylanta Plus Xs) 15 ml PRN AFTMEALHC PRN PO DYSPEPSIA; Start 02/11/19 at 01:00 Magnesium Hydroxide (Milk Of Magnesia) 2,400 mg PRN QHS PRN PO CONSTIPATION; Start 02/11/19 at 01:00; Status Cancel Acetaminophen (Tylenol) 325 mg PRN Q4HRS PO ; Start 02/11/19 at 05:30 Sodium Biphosphate/ Sodium Phosphate (Fleet Adult) 133 ml PRN Q24HRS PRN RC CONSTIPATION; Start 02/11/19 at 05:30 Senna/Docusate Sodium (Senna Plus) 1 tab HS PO Last administered on 02/15/19at 19:43; Start 02/11/19 at 21:00 Docusate Sodium (Colace) 100 mg DAILY PO Last administered on 02/15/19at 09:00; Start 02/11/19 at 09:00 Glycerin (Sani-Supp Adult) 1 supp PRN Q24HRS PRN RC CONSTIPATION; Start 02/11/19 at 05:30 Lactulose (Lactulose) 20 gm PRN Q24HRS PRN PO CONSTIPATION; Start 02/11/19 at 05:30 Magnesium Hydroxide (Milk Of Magnesia) 2,400 mg PRN Q24HRS PRN PO CONSTIPATION Last administered on 02/14/19at 15:44; Start 02/11/19 at 05:30 Risperidone (RisperDAL) 1 mg DAILY SL Last administered on 02/15/19at 09:00; Start 02/12/19 at 09:00 Risperidone (RisperDAL CONSTA) 25 mg Q2WKS IM Last administered on 02/14/19at 08:29; Start 02/14/19 at 09:00 Active Scripts Active Reported Tylenol (Acetaminophen) 325 Mg Tablet 1 Tab PO PRN Q4HRS Senna Laxative Tablet (Sennosides/Docusate Sodium) 1 Each Tablet 1 Each PO HS Milk Of Magnesia (Magnesium Hydroxide) 2,400 Mg/10 Ml Oral.susp 2,400 Mg PO PRN Q24HRS PRN Lactulose 10 Gm/15 Ml Solution 30 Ml PO PRN Q24HRS PRN Laxative Suppository (Glycerin) 1 Each Supp.rect 1 Each RC PRN Q24HRS PRN Fleet Enema (Na Phos,M-B/Na Phos,Di-Ba) 133 Ml Enema 133 Ml RC PRN Q24HRS PRN Colace (Docusate Sodium) 100 Mg Capsule 100 Mg PO DAILY I have reviewed the current psychotropics carefully including drug interactions. Risk benefit ratio favors no change other than as noted in my dictated progress note. Diagnosis: Problems: (1) Anxiety disorder (2) Bipolar affective, mixed, sev w/ psych (3) Impulse control disorder (4) Schizoaffective disorder, chronic condition with acute exacerbation RASHAWN GRAVES MD February 15, 2019 22:32
[2019-02-16] MEDS: ACETAMINOPHEN 325 MG TABLET PO PRN ×4 (02:09→23:41)
[2019-02-16 06:55] VITALS: BP 130/82
[2019-02-16] MEDS: DOCUSATE SODIUM 100 MG CAPSULE PO SCH (09:00)
[2019-02-16] MEDS: risperiDONE ORAL 1 MG/ML 30ml BOTTLE. SL SCH (10:14)
[2019-02-16 15:57] VITALS: BP 148/84
[2019-02-16] MEDS ORDERED: PHENOL ORAL SPRAY 177ML BOTTLE. PO PRN (18:30)
[2019-02-16] MEDS ORDERED: BENZOCAINE/MENTHOL LOZNGE 18'S BOX. PO PRN (18:45)
--- NOTE | 2019-02-16 19:48 | PN ---
DATE: 02/14/2019 PSYCHIATRIC PROGRESS NOTE This late entry 02/14/2019 covers elements not covered in my initial note. SUBJECTIVE: I met with the patient in the evening. The patient slept 8-3/4 hours previous evening. He is often resistive to his psychotropics, but is getting the Risperdal. Refused the IM Risperdal Consta, but nursing staff will persevere and trying to improve compliance and in fact later in the day, he did accept it. REVIEW OF SYSTEMS: Ambulation impaired, in wheelchair due to bilateral below-knee amputation. No CV, , pulmonary, eye system symptoms on review. MENTAL STATUS EXAM: Oriented reasonably. Speech is coherent, has some latency. Abstraction fair, computation impaired, language function intact, attention span short. Mood and affect somewhat withdrawn, less paranoid. I spent fair amount of time with him trying to elicit the paranoia and this seems better. LABORATORY DATA: Reviewed. IMPRESSION: Unchanged from initial note. PLAN: No change from initial note and encourage compliance with psychotropics. MAN Enrique GRAVES MD DR: COLTEN/carey JOB#: [id number] / [id number]
[2019-02-16] MEDS: SENNOSIDES/DOCUSATE 8.6/50MG TABLET. PO SCH ×3 (19:57→21:32)
--- NOTE | 2019-02-16 22:25 | PDOC ---
Exam Note: Hakan Note: Please also refer to the separate dictated note~for this date of service dictated separately.~Patient seen individually. Discussed the patient with Nursing staff reviewed the chart.~Reviewed interim history and current functioning. Reviewed vital signs,~Labs/ Radiology~and current medications noted below. Continue current treatment with the changes noted in the dictated addendum note Assessment: Vital Signs: Vital Signs Date Time Temp Pulse Resp B/P (MAP) Pulse Ox O2 Delivery O2 Flow Rate FiO2 02/16/19 15:57 98.0 79 20 148/84 (105) 97 02/10/19 22:13 Room Air I&O Intake and Output 02/16/19 07:00 Intake Total 1200 ml Balance 1200 ml Intake Oral 1200 ml Current Medications: Meds: Current Medications Sodium Chloride 1,000 ml @ 1,000 mls/hr Q1H IV Last administered on 02/10/19at 20:18; Start 02/10/19 at 20:11; Stop 02/10/19 at 21:59; Status DC Acetaminophen (Tylenol) 650 mg PRN Q6HRS PRN PO PAIN / TEMP; Start 02/11/19 at 01:00; Status Cancel Multi-Ingredient Ointment (Analgesic [place]) 1 kyle PRN QID PRN TP MUSCLE PAIN; S tart 02/11/19 at 01:00 Al Hydroxide/Mg Hydroxide (Mylanta Plus Xs) 15 ml PRN AFTMEALHC PRN PO DYSPEPSIA; Start 02/11/19 at 01:00 Magnesium Hydroxide (Milk Of Magnesia) 2,400 mg PRN QHS PRN PO CONSTIPATION; Start 02/11/19 at 01:00; Status Cancel Acetaminophen (Tylenol) 325 mg PRN Q4HRS PO ; Start 02/11/19 at 05:30; Stop 02/16/19 at 02:07; Status DC Sodium Biphosphate/ Sodium Phosphate (Fleet Adult) 133 ml PRN Q24HRS PRN RC CONSTIPATION; Start 02/11/19 at 05:30 Senna/Docusate Sodium (Senna Plus) 1 tab HS PO Last administered on 02/16/19at 21:32; Start 02/11/19 at 21:00 Docusate Sodium (Colace) 100 mg DAILY PO Last administered on 02/15/19at 09:00; Start 02/11/19 at 09:00 Glycerin (Sani-Supp Adult) 1 supp PRN Q24HRS PRN RC CONSTIPATION; Start 02/11/19 at 05:30 Lactulose (Lactulose) 20 gm PRN Q24HRS PRN PO CONSTIPATION; Start 02/11/19 at 05:30 Magnesium Hydroxide (Milk Of Magnesia) 2,400 mg PRN Q24HRS PRN PO CONSTIPATION Last administered on 02/14/19at 15:44; Start 02/11/19 at 05:30 Risperidone (RisperDAL) 1 mg DAILY SL Last administered on 02/16/19at 10:14; Start 02/12/19 at 09:00 Risperidone (RisperDAL CONSTA) 25 mg Q2WKS IM Last administered on 02/14/19at 08:29; Start 02/14/19 at 09:00 Acetaminophen (Tylenol) 325 mg PRN Q4HRS PRN PO PAIN / TEMP Last administered on 02/16/19at 18:19; Start 02/16/19 at 02:15 Throat Lozenges (Chloraseptic) 1 spray PRN Q2HR PRN PO SORE THROAT; Start 02/16/19 at 18:30 Throat Lozenges (Cepacol Sore Throat Lozenge) 1 tez PRN Q2HR PRN PO SORE THROAT; Start 02/16/19 at 18:45 Active Scripts Active Reported Tylenol (Acetaminophen) 325 Mg Tablet 1 Tab PO PRN Q4HRS Senna Laxative Tablet (Sennosides/Docusate Sodium) 1 Each Tablet 1 Each PO HS Milk Of Magnesia (Magnesium Hydroxide) 2,400 Mg/10 Ml Oral.susp 2,400 Mg PO PRN Q24HRS PRN Lactulose 10 Gm/15 Ml Solution 30 Ml PO PRN Q24HRS PRN Laxative Suppository (Glycerin) 1 Each Supp.rect 1 Each RC PRN Q24HRS PRN Fleet Enema (Na Phos,M-B/Na Phos,Di-Ba) 133 Ml Enema 133 Ml RC PRN Q24HRS PRN Colace (Docusate Sodium) 100 Mg Capsule 100 Mg PO DAILY I have reviewed the current psychotropics carefully including drug interactions. Risk benefit ratio favors no change other than as noted in my dictated progress note. Diagnosis: Problems: (1) Anxiety disorder (2) Bipolar affective, mixed, sev w/ psych (3) Impulse control disorder (4) Schizoaffective disorder, chronic condition with acute exacerbation RASHAWN GRAVES MD February 16, 2019 22:25
[2019-02-17] MEDS: ACETAMINOPHEN 325 MG TABLET PO PRN ×5 (03:46→22:37)
[2019-02-17 06:12] VITALS: BP 168/91
[2019-02-17] MEDS: DOCUSATE SODIUM 100 MG CAPSULE PO SCH (07:35)
[2019-02-17] MEDS: risperiDONE ORAL 1 MG/ML 30ml BOTTLE. SL SCH (07:35)
[2019-02-17 07:39] LABS: BASO % 1 % (0-3); EOS % 1 % (0-3); HEMOGLOBIN 14.1 g/dL (13.0-17.5); LYMPH # 0.8 x10^3/uL (1.0-4.8); LYMPH % 14 % (24-48); MEAN CORPUSCULAR HEMOGLOBIN 31 pg (25-35); MEAN CORPUSCULAR HGB CONC 34 g/dL (31-37); MEAN CORPUSCULAR VOLUME 93 fL (79-100); MONO # 0.5 x10^3/uL (0.0-1.1); MONO % 9 % (0-9); NEUT # 4.5 x10^3uL (1.8-7.7); NEUT % 76 % (31-73); PLATELET COUNT 200 x10^3/uL (140-400); RED BLOOD COUNT 4.53 x10^6/uL (4.30-5.70); RED CELL DISTRIBUTION WIDTH 13.6 % (11.5-14.5); WHITE BLOOD COUNT 5.9 x10^3/uL (4.0-11.0)
[2019-02-17 07:46] LABS: ALBUMIN 3.6 g/dL (3.4-5.0); ALBUMIN/GLOBULIN RATIO 1.1 (1.0-1.7); CALCIUM 9.4 mg/dL (8.5-10.1); CREATININE 0.9 mg/dL (0.7-1.3); GFR 85.8; POTASSIUM 3.6 mmol/L (3.5-5.1); TOTAL BILIRUBIN 0.5 mg/dL (0.2-1.0)
--- NOTE | 2019-02-17 12:06 | PN ---
DATE: 02/16/2019 PSYCHIATRIC PROGRESS NOTE This note covers elements not covered in my initial note 02/16/2019. SUBJECTIVE: I met with the patient in the evening. The patient slept 8 hours previous night. He refused his medications at night including senna, Risperdal is given hidden in his food and fluids. He was up at 2:00 in the morning, stated God was punishing him for taking his medications and complained of mouth pain, tongue pain. Dr. Arriaga did evaluate the patient, nothing obvious noted. He was asking the nursing staff to pray with him, so that his pain would go away. REVIEW OF SYSTEMS: Ambulation impaired, in wheelchair. No CV, , pulmonary, eye system symptoms on review. MENTAL STATUS EXAM: Oriented reasonably. Speech coherent, rapid. Abstraction fair, computation impaired, language function intact. Mood and affect remain somewhat anxious, labile. He is delusional. LABORATORY DATA: Reviewed. IMPRESSION: Unchanged from initial note. PLAN: No change from initial note. Encourage complaints with psychotropics. MAN Enrique GRAVES MD DR: CLOTEN/carey JOB#: [id number] / [id number]
[2019-02-17 16:05] VITALS: BP 159/89
[2019-02-17] MEDS: POLYETHYLENE GLYCOL 3350 17 GM PACKET. PO PRN (17:44)
[2019-02-17] MEDS: SENNOSIDES/DOCUSATE 8.6/50MG TABLET. PO SCH (19:57)
[2019-02-17] MEDS: MAGNESIUM HYDROXIDE 2,400 MG/30 ML ORAL.SUSP. PO PRN (20:38)
--- NOTE | 2019-02-17 22:30 | PDOC ---
Exam Note: Hakan Note: Please also refer to the separate dictated note~for this date of service dictated separately.~Patient seen individually. Discussed the patient with Nursing staff reviewed the chart.~Reviewed interim history and current functioning. Reviewed vital signs,~Labs/ Radiology~and current medications noted below. Continue current treatment with the changes noted in the dictated addendum note Assessment: Vital Signs: Vital Signs Date Time Temp Pulse Resp B/P (MAP) Pulse Ox O2 Delivery O2 Flow Rate FiO2 02/17/19 16:05 98.8 75 16 159/89 (112) 98 I&O Intake and Output 02/17/19 06:59 Intake Total 920 ml Balance 920 ml Intake Oral 920 ml Labs: Laboratory Tests Test 02/17/19 06:34 White Blood Count 5.9 x10^3/uL (4.0-11.0) Red Blood Count 4.53 x10^6/uL (4.30-5.70) Hemoglobin 14.1 g/dL (13.0-17.5) Hematocrit 42.0 % (39.0-53.0) Mean Corpuscular Volume 93 fL (79-100) Mean Corpuscular Hemoglobin 31 pg (25-35) Mean Corpuscular Hemoglobin Concent 34 g/dL (31-37) Red Cell Distribution Width 13.6 % (11.5-14.5) Platelet Count 200 x10^3/uL (140-400) Neutrophils (%) (Auto) 76 % (31-73) H Lymphocytes (%) (Auto) 14 % (24-48) L Monocytes (%) (Auto) 9 % (0-9) Eosinophils (%) (Auto) 1 % (0-3) Basophils (%) (Auto) 1 % (0-3) Neutrophils # (Auto) 4.5 x10^3uL (1.8-7.7) Lymphocytes # (Auto) 0.8 x10^3/uL (1.0-4.8) L Monocytes # (Auto) 0.5 x10^3/uL (0.0-1.1) Eosinophils # (Auto) 0.0 x10^3/uL (0.0-0.7) Basophils # (Auto) 0.0 x10^3/uL (0.0-0.2) Sodium Level 141 mmol/L (136-145) Potassium Level 3.6 mmol/L (3.5-5.1) Chloride Level 103 mmol/L (98-107) Carbon Dioxide Level 31 mmol/L (21-32) Anion Gap 7 (6-14) Blood Urea Nitrogen 16 mg/dL (8-26) Creatinine 0.9 mg/dL (0.7-1.3) Estimated GFR (Cockcroft-Gault) 85.8 BUN/Creatinine Ratio 18 (6-20) Glucose Level 90 mg/dL (70-99) Calcium Level 9.4 mg/dL (8.5-10.1) Total Bilirubin 0.5 mg/dL (0.2-1.0) Aspartate Amino Transferase (AST) 11 U/L (15-37) L Alanine Aminotransferase (ALT) 20 U/L (16-63) Alkaline Phosphatase 101 U/L (46-116) Total Protein 7.0 g/dL (6.4-8.2) Albumin 3.6 g/dL (3.4-5.0) Albumin/Globulin Ratio 1.1 (1.0-1.7) Vitamin B12 Level 379 pg/mL (247-911) Current Medications: Meds: Current Medications Sodium Chloride 1,000 ml @ 1,000 mls/hr Q1H IV Last administered on 02/10/19at 20:18; Start 02/10/19 at 20:11; Stop 02/10/19 at 21:59; Status DC Acetaminophen (Tylenol) 650 mg PRN Q6HRS PRN PO PAIN / TEMP; Start 02/11/19 at 01:00; Status Cancel Multi-Ingredient Ointment (Analgesic [place]) 1 kyle PRN QID PRN TP MUSCLE PAIN; Start 02/11/19 at 01:00 Al Hydroxide/Mg Hydroxide (Mylanta Plus Xs) 15 ml PRN AFTMEALHC PRN PO DYSPEPSIA; Start 02/11/19 at 01:00 Magnesium Hydroxide (Milk Of Magnesia) 2,400 mg PRN QHS PRN PO CONSTIPATION; S tart 02/11/19 at 01:00; Status Cancel Acetaminophen (Tylenol) 325 mg PRN Q4HRS PO ; Start 02/11/19 at 05:30; Stop 02/16/19 at 02:07; Status DC Sodium Biphosphate/ Sodium Phosphate (Fleet Adult) 133 ml PRN Q24HRS PRN RC CONSTIPATION; Start 02/11/19 at 05:30 Senna/Docusate Sodium (Senna Plus) 1 tab HS PO Last administered on 02/17/19 19:57; Start 02/11/19 at 21:00 Docusate Sodium (Colace) 100 mg DAILY PO Last administered on 02/15/19 09:00; Start 02/11/19 at 09:00 Glycerin (Sani-Supp Adult) 1 supp PRN Q24HRS PRN RC CONSTIPATION; Start 02/11/19 at 05:30 Lactulose (Lactulose) 20 gm PRN Q24HRS PRN PO CONSTIPATION; Start 02/11/19 at 05:30 Magnesium Hydroxide (Milk Of Magnesia) 2,400 mg PRN Q24HRS PRN PO CONSTIPATION Last administered on 02/17/19 20:38; Start 02/11/19 at 05:30 Risperidone (RisperDAL) 1 mg DAILY SL Last administered on 02/17/19 07:35; Start 02/12/19 at 09:00 Risperidone (RisperDAL [place]) 25 mg Q2WKS IM Last administered on 02/14/19 08:29; Start 02/14/19 at 09:00 Acetaminophen (Tylenol) 325 mg PRN Q4HRS PRN PO PAIN / TEMP Last administered on 02/17/19 16:24; Start 02/16/19 at 02:15 Throat Lozenges (Chloraseptic) 1 spray PRN Q2HR PRN PO SORE THROAT Last administered on 02/17/19 10:20; Start 02/16/19 at 18:30 Throat Lozenges (Cepacol Sore Throat Lozenge) 1 tez PRN Q2HR PRN PO SORE THROAT Last administered on 02/16/19 22:39; Start 02/16/19 at 18:45 Polyethylene Glycol (miraLAX) 17 gm PRN DAILY PRN PO CONSTIPATION Last administered on 02/17/19 17:44; Start 02/17/19 at 17:45 Active Scripts Active Reported Tylenol (Acetaminophen) 325 Mg Tablet 1 Tab PO PRN Q4HRS Senna Laxative Tablet (Sennosides/Docusate Sodium) 1 Each Tablet 1 Each PO HS Milk Of Magnesia (Magnesium Hydroxide) 2,400 Mg/10 Ml Oral.susp 2,400 Mg PO PRN Q24HRS PRN Lactulose 10 Gm/15 Ml Solution 30 Ml PO PRN Q24HRS PRN Laxative Suppository (Glycerin) 1 Each Supp.rect 1 Each RC PRN Q24HRS PRN Fleet Enema (Na Phos,M-B/Na Phos,Di-Ba) 133 Ml Enema 133 Ml RC PRN Q24HRS PRN Colace (Docusate Sodium) 100 Mg Capsule 100 Mg PO DAILY I have reviewed the current psychotropics carefully including drug interactions. Risk benefit ratio favors no change other than as noted in my dictated progress note. Diagnosis: Problems: (1) Anxiety disorder (2) Bipolar affective, mixed, sev w/ psych (3) Impulse control disorder (4) Schizoaffective disorder, chronic condition with acute exacerbation RASHAWN GRAVES MD February 17, 2019 22:30
--- NOTE | 2019-02-17 23:08 | PN ---
DATE: 02/17/2019 PSYCHIATRIC PROGRESS NOTE This note covers elements not covered in my initial note 02/17/2019. SUBJECTIVE: I met with the patient in the evening in his room. The patient slept 4-1/4 hours previous night. He has been attention seeking and needy per nursing report, specifically regarding pain in his mouth. However, as I met with him in the evening, he said the pain was all better for the past 1 hour. REVIEW OF SYSTEMS: Ambulation impaired, in wheelchair due to bilateral below-knee amputation, occasional mouth pain. No CV, , pulmonary, eye system symptoms on review. MENTAL STATUS EXAM: Reasonably oriented. Speech is coherent, abstraction fair, computation impaired, language function intact, attention span short. Mood and affect remains somewhat withdrawn, anxious, labile at times. LABORATORY DATA: Reviewed. IMPRESSION: Unchanged from initial note. PLAN: No change from initial note. MAN Enrique GRAVES MD DR: COLTEN/carey JOB#: [id number] / [id number]
--- NOTE | 2019-02-18 00:31 | PN ---
DATE: 02/15/2019 PSYCHIATRIC PROGRESS NOTE This late entry 02/15/2019 covers elements not covered in my initial note. SUBJECTIVE: I met with the patient in the evening of 02/15/2019. The patient slept 7-1/2 hours previous night. He did receive his Consta Risperdal and consented to this. REVIEW OF SYSTEMS: Ambulation impaired, in wheelchair, bilateral below-knee amputation. No CV, , pulmonary, eye system symptoms on review. MENTAL STATUS EXAM: Oriented to himself and situation. Speech is coherent, abstraction fair, computation impaired, language function intact, attention span short. Mood and affect still somewhat withdrawn, anxious at times. LABORATORY DATA: Reviewed. IMPRESSION: Unchanged from initial note. PLAN: No change from initial note. MAN Enrique GRAVES MD DR: COLTEN/carey JOB#: [id number] / [id number]
[2019-02-18 05:58] VITALS: BP 152/85
[2019-02-18] MEDS: risperiDONE ORAL 1 MG/ML 30ml BOTTLE. SL SCH (12:11)
[2019-02-18] MEDS: DOCUSATE SODIUM 100 MG CAPSULE PO SCH (14:29)
[2019-02-18 16:28] VITALS: BP 147/85
[2019-02-18] MEDS: SENNOSIDES/DOCUSATE 8.6/50MG TABLET. PO SCH (21:00)
--- NOTE | 2019-02-18 22:34 | PDOC ---
Exam Note: Hakan Note: Please also refer to the separate dictated note~for this date of service dictated separately.~Patient seen individually. Discussed the patient with Nursing staff reviewed the chart.~Reviewed interim history and current functioning. Reviewed vital signs,~Labs/ Radiology~and current medications noted below. Continue current treatment with the changes noted in the dictated addendum note Assessment: Vital Signs: Vital Signs Date Time Temp Pulse Resp B/P (MAP) Pulse Ox O2 Delivery O2 Flow Rate FiO2 02/18/19 16:28 97.7 90 20 147/85 (105) 96 Room Air I&O Intake and Output 02/18/19 06:59 Intake Total 1080 ml Balance 1080 ml Intake Oral 1080 ml # Voids 1 Current Medications: Meds: Current Medications Sodium Chloride 1,000 ml @ 1,000 mls/hr Q1H IV Last administered on 02/10/19at 20:18; Start 02/10/19 at 20:11; Stop 02/10/19 at 21:59; Status DC Acetaminophen (Tylenol) 650 mg PRN Q6HRS PRN PO PAIN / TEMP; Start 02/11/19 at 01:00; Status Cancel Multi-Ingredient Ointment (Analgesic [place]) 1 kyle PRN QID PRN TP MUSCLE PAIN; Start 02/11/19 at 01:00 Al Hydroxide/Mg Hydroxide (Mylanta Plus Xs) 15 ml PRN AFTMEALHC PRN PO DYSPEPSIA; Start 02/11/19 at 01:00 Magnesium Hydroxide (Milk Of Magnesia) 2,400 mg PRN QHS PRN PO CONSTIPATION; Start 02/11/19 at 01:00; Status Cancel Acetaminophen (Tylenol) 325 mg PRN Q4HRS PO ; Start 02/11/19 at 05:30; Stop 02/16/19 at 02:07; Status DC Sodium Biphosphate/ Sodium Phosphate (Fleet Adult) 133 ml PRN Q24HRS PRN RC CONSTIPATION; Start 02/11/19 at 05:30 Senna/Docusate Sodium (Senna Plus) 1 tab HS PO Last administered on 02/17/19at 19:57; Start 02/11/19 at 21:00 Docusate Sodium (Colace) 100 mg DAILY PO Last administered on 02/18/19at 14:29; Start 02/11/19 at 09:00 Glycerin (Sani-Supp Adult) 1 supp PRN Q24HRS PRN RC CONSTIPATION; Start 02/11/19 at 05:30 Lactulose (Lactulose) 20 gm PRN Q24HRS PRN PO CONSTIPATION; Start 02/11/19 at 05:30 Magnesium Hydroxide (Milk Of Magnesia) 2,400 mg PRN Q24HRS PRN PO CONSTIPATION Last administered on 02/17/19 20:38; Start 02/11/19 at 05:30 Risperidone (RisperDAL) 1 mg DAILY SL Last administered on 02/18/19 12:11; Start 02/12/19 at 09:00 Risperidone (RisperDAL CONSTA) 25 mg Q2WKS IM Last administered on 02/14/19 08:29; Start 02/14/19 at 09:00 Acetaminophen (Tylenol) 325 mg PRN Q4HRS PRN PO PAIN / TEMP Last administered on 02/17/19 22:37; Start 02/16/19 at 02:15 Throat Lozenges (Chloraseptic) 1 spray PRN Q2HR PRN PO SORE THROAT Last administered on 02/17/19 10:20; Start 02/16/19 at 18:30 Throat Lozenges (Cepacol Sore Throat Lozenge) 1 tez PRN Q2HR PRN PO SORE THROAT Last administered on 02/16/19 22:39; Start 02/16/19 at 18:45 Polyethylene Glycol (miraLAX) 17 gm PRN DAILY PRN PO CONSTIPATION Last administered on 02/17/19 17:44; Start 02/17/19 at 17:45 Active Scripts Active Reported Tylenol (Acetaminophen) 325 Mg Tablet 1 Tab PO PRN Q4HRS Senna Laxative Tablet (Sennosides/Docusate Sodium) 1 Each Tablet 1 Each PO HS Milk Of Magnesia (Magnesium Hydroxide) 2,400 Mg/10 Ml Oral.susp 2,400 Mg PO PRN Q24HRS PRN Lactulose 10 Gm/15 Ml Solution 30 Ml PO PRN Q24HRS PRN Laxative Suppository (Glycerin) 1 Each Supp.rect 1 Each RC PRN Q24HRS PRN Fleet Enema (Na Phos,M-B/Na Phos,Di-Ba) 133 Ml Enema 133 Ml RC PRN Q24HRS PRN Colace (Docusate Sodium) 100 Mg Capsule 100 Mg PO DAILY I have reviewed the current psychotropics carefully including drug interactions. Risk benefit ratio favors no change other than as noted in my dictated progress note. Diagnosis: Problems: (1) Anxiety disorder (2) Bipolar affective, mixed, sev w/ psych (3) Impulse control disorder (4) Schizoaffective disorder, chronic condition with acute exacerbation RASHAWN GRAVES MD February 18, 2019 22:34
--- NOTE | 2019-02-18 22:44 | PN ---
DATE: 02/18/2019 PSYCHIATRIC PROGRESS NOTE This note covers elements not covered in my initial note 02/18/2019. SUBJECTIVE: I met with the patient in the evening. The patient slept 7-3/4 hours previous night. He is less obsessive about pain in his mouth and teeth, but he has been constipated with no bowel movement since the 02/12/2019 and has been refusing his laxatives. I addressed this with him and I will defer to Dr. Arriaga. Slept 7-3/4 hours. REVIEW OF SYSTEMS: Ambulation impaired, in wheelchair, bilateral below-knee amputation. to the constipation as above, no CV, , pulmonary, eye system symptoms on review. MENTAL STATUS EXAM: I met with him in his room. Speech coherent, abstraction fair, computation impaired, language function intact, attention span short. Mood and affect remains somewhat anxious, at times a little labile. LABORATORY DATA: Reviewed. IMPRESSION: Unchanged from initial note. PLAN: No change from initial note other than addressing the constipation. Maintain Risperdal Consta and encourage compliance with oral Risperdal. RASHAWN GRAVES MD DR: COLTEN/carey JOB#: [id number] / [id number]
[2019-02-19 05:58] VITALS: BP 135/74
[2019-02-19] MEDS: DOCUSATE SODIUM 100 MG CAPSULE PO SCH (07:39)
[2019-02-19] MEDS: risperiDONE ORAL 1 MG/ML 30ml BOTTLE. SL SCH (07:43)
[2019-02-19 16:25] VITALS: BP 133/79
[2019-02-19] MEDS: POLYETHYLENE GLYCOL 3350 17 GM PACKET. PO PRN (20:00)
[2019-02-19] MEDS ORDERED: POLYETHYLENE GLYCOL 3350 17 GM PACKET. PO PRN (20:00)
[2019-02-19] MEDS: SENNOSIDES/DOCUSATE 8.6/50MG TABLET. PO SCH (20:01)
--- NOTE | 2019-02-19 22:23 | PDOC ---
Exam Note: Hakan Note: Please also refer to the separate dictated note~for this date of service dictated separately.~Patient seen individually. Discussed the patient with Nursing staff reviewed the chart.~Reviewed interim history and current functioning. Reviewed vital signs,~Labs/ Radiology~and current medications noted below. Continue current treatment with the changes noted in the dictated addendum note Assessment: Vital Signs: Vital Signs Date Time Temp Pulse Resp B/P (MAP) Pulse Ox O2 Delivery O2 Flow Rate FiO2 02/19/19 16:25 97.8 75 18 133/79 (97) 96 02/18/19 16:28 Room Air I&O Intake and Output 02/19/19 07:00 Intake Total 1080 ml Balance 1080 ml Intake Oral 1080 ml Current Medications: Meds: Current Medications Sodium Chloride 1,000 ml @ 1,000 mls/hr Q1H IV Last administered on 02/10/19at 20:18; Start 02/10/19 at 20:11; Stop 02/10/19 at 21:59; Status DC Acetaminophen (Tylenol) 650 mg PRN Q6HRS PRN PO PAIN / TEMP; Start 02/11/19 at 01:00; Status Cancel Multi-Ingredient Ointment (Analgesic [place]) 1 kyle PRN QID PRN TP MUSCLE PAIN; Start 02/11/19 at 01:00 Al Hydroxide/Mg Hydroxide (Mylanta Plus Xs) 15 ml PRN AFTMEALHC PRN PO DYSPEPSIA; Start 02/11/19 at 01:00 Magnesium Hydroxide (Milk Of Magnesia) 2,400 mg PRN QHS PRN PO CONSTIPATION; Start 02/11/19 at 01:00; Status Cancel Acetaminophen (Tylenol) 325 mg PRN Q4HRS PO ; Start 02/11/19 at 05:30; Stop 02/16/19 at 02:07; Status DC Sodium Biphosphate/ Sodium Phosphate (Fleet Adult) 133 ml PRN Q24HRS PRN RC CONSTIPATION; Start 02/11/19 at 05:30 Senna/Docusate Sodium (Senna Plus) 1 tab HS PO Last administered on 02/17/19at 19:57; Start 02/11/19 at 21:00 Docusate Sodium (Colace) 100 mg DAILY PO Last administered on 02/19/19at 07:39; Start 02/11/19 at 09:00 Glycerin (Sani-Supp Adult) 1 supp PRN Q24HRS PRN RC CONSTIPATION; Start 02/11/19 at 05:30 Lactulose (Lactulose) 20 gm PRN Q24HRS PRN PO CONSTIPATION; Start 02/11/19 at 05:30 Magnesium Hydroxide (Milk Of Magnesia) 2,400 mg PRN Q24HRS PRN PO CONSTIPATION Last administered on 02/17/19 20:38; Start 02/11/19 at 05:30 Risperidone (RisperDAL) 1 mg DAILY SL Last administered on 02/19/19 07:43; Start 02/12/19 at 09:00 Risperidone (RisperDAL CONSTA) 25 mg Q2WKS IM Last administered on 02/14/19 08:29; Start 02/14/19 at 09:00 Acetaminophen (Tylenol) 325 mg PRN Q4HRS PRN PO PAIN / TEMP Last administered on 02/17/19 22:37; Start 02/16/19 at 02:15 Throat Lozenges (Chloraseptic) 1 spray PRN Q2HR PRN PO SORE THROAT Last ad ministered on 02/17/19 10:20; Start 02/16/19 at 18:30 Throat Lozenges (Cepacol Sore Throat Lozenge) 1 tez PRN Q2HR PRN PO SORE THROAT Last administered on 02/16/19at 22:39; Start 02/16/19 at 18:45 Polyethylene Glycol (miraLAX) 17 gm PRN DAILY PRN PO CONSTIPATION Last administered on 02/19/19 20:00; Start 02/17/19 at 17:45 Polyethylene Glycol (miraLAX) 17 gm PRN DAILY PRN PO CONSTIPATION; Start 02/19/19 at 20:00 Active Scripts Active Reported Tylenol (Acetaminophen) 325 Mg Tablet 1 Tab PO PRN Q4HRS Senna Laxative Tablet (Sennosides/Docusate Sodium) 1 Each Tablet 1 Each PO HS Milk Of Magnesia (Magnesium Hydroxide) 2,400 Mg/10 Ml Oral.susp 2,400 Mg PO PRN Q24HRS PRN Lactulose 10 Gm/15 Ml Solution 30 Ml PO PRN Q24HRS PRN Laxative Suppository (Glycerin) 1 Each Supp.rect 1 Each RC PRN Q24HRS PRN Fleet Enema (Na Phos,M-B/Na Phos,Di-Ba) 133 Ml Enema 133 Ml RC PRN Q24HRS PRN Colace (Docusate Sodium) 100 Mg Capsule 100 Mg PO DAILY I have reviewed the current psychotropics carefully including drug interactions. Risk benefit ratio favors no change other than as noted in my dictated progress note. Diagnosis: Problems: (1) Anxiety disorder (2) Bipolar affective, mixed, sev w/ psych (3) Impulse control disorder (4) Schizoaffective disorder, chronic condition with acute exacerbation RASHAWN GRAVES MD February 19, 2019 22:23
[2019-02-20 06:12] VITALS: BP 138/81
[2019-02-20] MEDS: DOCUSATE SODIUM 100 MG CAPSULE PO SCH (08:10)
[2019-02-20] MEDS: risperiDONE ORAL 1 MG/ML 30ml BOTTLE. SL SCH (08:10)
[2019-02-20] MEDS: POLYETHYLENE GLYCOL 3350 17 GM PACKET. PO PRN (08:11)
[2019-02-20 15:42] VITALS: BP 135/83
[2019-02-20] MEDS: SENNOSIDES/DOCUSATE 8.6/50MG TABLET. PO SCH (19:46)
--- NOTE | 2019-02-20 22:21 | PDOC ---
Exam Note: Hakan Note: Please also refer to the separate dictated note~for this date of service dictated separately.~Patient seen individually. Discussed the patient with Nursing staff reviewed the chart.~Reviewed interim history and current functioning. Reviewed vital signs,~Labs/ Radiology~and current medications noted below. Continue current treatment with the changes noted in the dictated addendum note Assessment: Vital Signs: Vital Signs Date Time Temp Pulse Resp B/P (MAP) Pulse Ox O2 Delivery O2 Flow Rate FiO2 02/20/19 15:42 97.7 90 18 135/83 (100) 95 02/18/19 16:28 Room Air I&O Intake and Output 02/20/19 07:00 Intake Total 400 ml Balance 400 ml Intake Oral 400 ml # Bowel Movements 1 Current Medications: Meds: Current Medications Sodium Chloride 1,000 ml @ 1,000 mls/hr Q1H IV Last administered on 02/10/19at 20:18; Start 02/10/19 at 20:11; Stop 02/10/19 at 21:59; Status DC Acetaminophen (Tylenol) 650 mg PRN Q6HRS PRN PO PAIN / TEMP; Start 02/11/19 at 01:00; Status Cancel Multi-Ingredient Ointment (Analgesic [place]) 1 kyle PRN QID PRN TP MUSCLE PAIN; Start 02/11/19 at 01:00 Al Hydroxide/Mg Hydroxide (Mylanta Plus Xs) 15 ml PRN AFTMEALHC PRN PO DYSPEPSIA; Start 02/11/19 at 01:00 Magnesium Hydroxide (Milk Of Magnesia) 2,400 mg PRN QHS PRN PO CONSTIPATION; Start 02/11/19 at 01:00; Status Cancel Acetaminophen (Tylenol) 325 mg PRN Q4HRS PO ; Start 02/11/19 at 05:30; Stop 02/16/19 at 02:07; Status DC Sodium Biphosphate/ Sodium Phosphate (Fleet Adult) 133 ml PRN Q24HRS PRN RC CONSTIPATION; Start 02/11/19 at 05:30 Senna/Docusate Sodium (Senna Plus) 1 tab HS PO Last administered on 02/20/19at 19:46; Start 02/11/19 at 21:00 Docusate Sodium (Colace) 100 mg DAILY PO Last administered on 02/20/19at 08:10; Start 02/11/19 at 09:00 Glycerin (Sani-Supp Adult) 1 supp PRN Q24HRS PRN RC CONSTIPATION; Start 02/11/19 at 05:30 Lactulose (Lactulose) 20 gm PRN Q24HRS PRN PO CONSTIPATION; Start 02/11/19 at 05:30 Magnesium Hydroxide (Milk Of Magnesia) 2,400 mg PRN Q24HRS PRN PO CONSTIPATION Last administered on 02/17/19 20:38; Start 02/11/19 at 05:30 Risperidone (RisperDAL) 1 mg DAILY SL Last administered on 02/20/19 08:10; Start 02/12/19 at 09:00 Risperidone (RisperDAL CONSTA) 25 mg Q2WKS IM Last administered on 02/14/19 08:29; Start 02/14/19 at 09:00 Acetaminophen (Tylenol) 325 mg PRN Q4HRS PRN PO PAIN / TEMP Last administered on 02/17/19 22:37; Start 02/16/19 at 02:15 Throat Lozenges (Chloraseptic) 1 spray PRN Q2HR PRN PO SORE THROAT Last administered on 02/17/19 10:20; Start 02/16/19 at 18:30 Throat Lozenges (Cepacol Sore Throat Lozenge) 1 tez PRN Q2HR PRN PO SORE THROAT Last administered on 02/16/19at 22:39; Start 02/16/19 at 18:45 Polyethylene Glycol (miraLAX) 17 gm PRN DAILY PRN PO CONSTIPATION Last administered on 02/20/19 08:11; Start 02/17/19 at 17:45 Polyethylene Glycol (miraLAX) 17 gm PRN DAILY PRN PO CONSTIPATION; Start 02/19/19 at 20:00 Active Scripts Active Reported Tylenol (Acetaminophen) 325 Mg Tablet 1 Tab PO PRN Q4HRS Senna Laxative Tablet (Sennosides/Docusate Sodium) 1 Each Tablet 1 Each PO HS Milk Of Magnesia (Magnesium Hydroxide) 2,400 Mg/10 Ml Oral.susp 2,400 Mg PO PRN Q24HRS PRN Lactulose 10 Gm/15 Ml Solution 30 Ml PO PRN Q24HRS PRN Laxative Suppository (Glycerin) 1 Each Supp.rect 1 Each RC PRN Q24HRS PRN Fleet Enema (Na Phos,M-B/Na Phos,Di-Ba) 133 Ml Enema 133 Ml RC PRN Q24HRS PRN Colace (Docusate Sodium) 100 Mg Capsule 100 Mg PO DAILY I have reviewed the current psychotropics carefully including drug interactions. Risk benefit ratio favors no change other than as noted in my dictated progress note. Diagnosis: Problems: (1) Anxiety disorder (2) Bipolar affective, mixed, sev w/ psych (3) Impulse control disorder (4) Schizoaffective disorder, chronic condition with acute exacerbation RASHAWN GRAVES MD February 20, 2019 22:21
[2019-02-21 05:50] VITALS: BP 132/84
[2019-02-21] MEDS: risperiDONE ORAL 1 MG/ML 30ml BOTTLE. SL SCH (07:45)
[2019-02-21] MEDS: DOCUSATE SODIUM 100 MG CAPSULE PO SCH (07:45)
[2019-02-21 16:19] VITALS: BP 125/80
[2019-02-21] MEDS: SENNOSIDES/DOCUSATE 8.6/50MG TABLET. PO SCH (19:24)
--- NOTE | 2019-02-21 22:29 | PDOC ---
Exam Note: Hakan Note: Please also refer to the separate dictated note~for this date of service dictated separately.~Patient seen individually. Discussed the patient with Nursing staff reviewed the chart.~Reviewed interim history and current functioning. Reviewed vital signs,~Labs/ Radiology~and current medications noted below. Continue current treatment with the changes noted in the dictated addendum note Assessment: Vital Signs: Vital Signs Date Time Temp Pulse Resp B/P (MAP) Pulse Ox O2 Delivery O2 Flow Rate FiO2 02/21/19 16:19 98.3 76 16 125/80 (95) 98 Room Air I&O Intake and Output 02/21/19 06:59 Intake Total 720 ml Balance 720 ml Intake Oral 720 ml Current Medications: Meds: Current Medications Sodium Chloride 1,000 ml @ 1,000 mls/hr Q1H IV Last administered on 02/10/19at 20:18; Start 02/10/19 at 20:11; Stop 02/10/19 at 21:59; Status DC Acetaminophen (Tylenol) 650 mg PRN Q6HRS PRN PO PAIN / TEMP; Start 02/11/19 at 01:00; Status Cancel Multi-Ingredient Ointment (Analgesic [place]) 1 kyle PRN QID PRN TP MUSCLE PAIN; Start 02/11/19 at 01:00 Al Hydroxide/Mg Hydroxide (Mylanta Plus Xs) 15 ml PRN AFTMEALHC PRN PO DYSPEPSIA; Start 02/11/19 at 01:00 Magnesium Hydroxide (Milk Of Magnesia) 2,400 mg PRN QHS PRN PO CONSTIPATION; Start 02/11/19 at 01:00; Status Cancel Acetaminophen (Tylenol) 325 mg PRN Q4HRS PO ; Start 02/11/19 at 05:30; Stop 02/16/19 at 02:07; Status DC Sodium Biphosphate/ Sodium Phosphate (Fleet Adult) 133 ml PRN Q24HRS PRN RC CONSTIPATION; Start 02/11/19 at 05:30 Senna/Docusate Sodium (Senna Plus) 1 tab HS PO Last administered on 02/21/19at 19:24; Start 02/11/19 at 21:00 Docusate Sodium (Colace) 100 mg DAILY PO Last administered on 02/21/19at 07:45; Start 02/11/19 at 09:00 Glycerin (Sani-Supp Adult) 1 supp PRN Q24HRS PRN RC CONSTIPATION; Start 02/11/19 at 05:30 Lactulose (Lactulose) 20 gm PRN Q24HRS PRN PO CONSTIPATION; Start 02/11/19 at 05:30 Magnesium Hydroxide (Milk Of Magnesia) 2,400 mg PRN Q24HRS PRN PO CONSTIPATION Last administered on 02/17/19 20:38; Start 02/11/19 at 05:30 Risperidone (RisperDAL) 1 mg DAILY SL Last administered on 02/21/19 07:45; Start 02/12/19 at 09:00 Risperidone (RisperDAL CONSTA) 25 mg Q2WKS IM Last administered on 02/14/19 08:29; Start 02/14/19 at 09:00 Acetaminophen (Tylenol) 325 mg PRN Q4HRS PRN PO PAIN / TEMP Last administered on 02/17/19 22:37; Start 02/16/19 at 02:15 Throat Lozenges (Chloraseptic) 1 spray PRN Q2HR PRN PO SORE THROAT Last administered on 02/17/19 10:20; Start 02/16/19 at 18:30 Throat Lozenges (Cepacol Sore Throat Lozenge) 1 tez PRN Q2HR PRN PO SORE THROAT Last administered on 02/16/19 22:39; Start 02/16/19 at 18:45 Polyethylene Glycol (miraLAX) 17 gm PRN DAILY PRN PO CONSTIPATION Last administered on 02/20/19 08:11; Start 02/17/19 at 17:45 Polyethylene Glycol (miraLAX) 17 gm PRN DAILY PRN PO CONSTIPATION; Start 02/19/19 at 20:00 Active Scripts Active Reported Tylenol (Acetaminophen) 325 Mg Tablet 1 Tab PO PRN Q4HRS Senna Laxative Tablet (Sennosides/Docusate Sodium) 1 Each Tablet 1 Each PO HS Milk Of Magnesia (Magnesium Hydroxide) 2,400 Mg/10 Ml Oral.susp 2,400 Mg PO PRN Q24HRS PRN Lactulose 10 Gm/15 Ml Solution 30 Ml PO PRN Q24HRS PRN Laxative Suppository (Glycerin) 1 Each Supp.rect 1 Each RC PRN Q24HRS PRN Fleet Enema (Na Phos,M-B/Na Phos,Di-Ba) 133 Ml Enema 133 Ml RC PRN Q24HRS PRN Colace (Docusate Sodium) 100 Mg Capsule 100 Mg PO DAILY I have reviewed the current psychotropics carefully including drug interactions. Risk benefit ratio favors no change other than as noted in my dictated progress note. Diagnosis: Problems: (1) Anxiety disorder (2) Bipolar affective, mixed, sev w/ psych (3) Impulse control disorder (4) Schizoaffective disorder, chronic condition with acute exacerbation RASHAWN GRAVES MD February 21, 2019 22:29
--- NOTE | 2019-02-21 23:58 | PN ---
DATE: 02/19/2019 PSYCHIATRIC PROGRESS NOTE This late entry 02/19/2019 covers elements not covered in my initial note. SUBJECTIVE: I met with the patient in the evening of 02/19/2019. The patient slept 6-1/2 hours previous night. He has been somewhat withdrawn to his room, refused the stool softener still complains of constipation, agrees to take MiraLax and we will initiate this. REVIEW OF SYSTEMS: Ambulation impaired, in wheelchair with bilateral below-knee amputation. No CV, , pulmonary, eye system symptoms on review. MENTAL STATUS EXAM: Oriented to himself and situation. Speech has some latency, coherent. Abstraction fair, computation impaired, language function intact, attention span short. He remains somewhat paranoid, met with him at length in his room. LABORATORY DATA: Reviewed. IMPRESSION: Unchanged from initial note. PLAN: No change from initial note and treat the constipation symptomatically. MAN Enrique GRAVES MD DR: COLTEN/carey JOB#: [id number] / [id number]
--- NOTE | 2019-02-21 23:59 | PN ---
DATE: 02/20/2019 PSYCHIATRIC PROGRESS NOTE This late entry 02/20/2019 covers elements not covered in my initial note. SUBJECTIVE: I met with the patient in the evening of 02/20/2019 and staffed at a treatment team meeting with the entire team in the morning. Appetite 75%, slept 7 hours previous night. He has been somewhat withdrawn, refusing psychotropics, but does take the Risperdal concentrate with fluids. He may need a guardian and social service staff will facilitate this. REVIEW OF SYSTEMS: Ambulation impaired, in wheelchair due to bilateral below-knee amputation. No CV, , pulmonary, eye, ENT system symptoms on review, does complain of constipation. MENTAL STATUS EXAM: Oriented to himself and situation. Speech is coherent, abstraction fair, computation impaired, language function intact. No active suicidal or homicidal ideation. He is still somewhat paranoid, less so than before. LABORATORY DATA: Reviewed. IMPRESSION: Unchanged from initial note. PLAN: No change from initial note. MAN Enrique GRAVES MD DR: COLTEN/carey JOB#: [id number] / [id number]
--- NOTE | 2019-02-22 05:41 | CONS ---
DATE OF CONSULTATION: 02/13/2019 REASON FOR CONSULTATION: Medical management. This is a late entry. HISTORY OF PRESENT ILLNESS: The patient is a 63-year-old male patient who was referred [facility] from [facility] by his primary care physician on account of worsening psychotic symptoms, voices telling him not to take his medication, being hyperverbal, being preoccupied and obsessed with homosexuals running around the assisted. He has been actively hallucinating and reportedly made suicidal threats to suffocate himself because he was overwhelmed with all of the above. PAST MEDICAL HISTORY: Significant for hypertension, hypothyroidism, weakness, weight loss, chronic constipation, history of CVA. PAST SURGICAL HISTORY: Significant for bilateral below-knee amputation. ALLERGIES: HE IS ALLERGIC TO PENICILLIN. FAMILY HISTORY: Noncontributory. SOCIAL HISTORY: He is a resident at [facility]. He does not smoke, drink alcohol or use any recreational drugs. MEDICATIONS: He is currently on following medications: He is on acetaminophen 650 mg every 4 hours, lactulose 30 mL once a day as needed for constipation, docusate sodium 100 mg daily, magnesium hydroxide, milk of magnesia 30 mL p.o. daily p.r.n. for constipation, Fleet enemas 133 mL per rectum as needed daily, Senna-S one tablet at bedtime. PHYSICAL EXAMINATION: GENERAL: When I saw him, he was sitting comfortably in chair, in no apparent respiratory distress. He was pale, but no jaundice, cyanosis, or thyromegaly. No jugular venous distension. No limb edema. VITAL SIGNS: His heart rate was 69, blood pressure was 132/84, temperature was 98, respiratory rate was 18 and oxygen saturation was 98%. HEAD, EYES, EARS, NOSE AND THROAT: Showed normocephalic, atraumatic. NECK: Supple. HEART: Showed normal first and second heart sounds with no gallop, rub or murmur. CHEST: Clear to auscultation. No crepitation or rhonchi. ABDOMEN: Distended, soft, nontender. NEUROLOGIC: He is awake, alert, responding appropriately. Cranial nerves intact. EXTREMITIES: He moves upper extremities without difficulty, has bilateral below-knee amputation, is mostly bedbound, chair bound. LABORATORY DATA: Showed a white cell count 5900, hemoglobin 14, hematocrit 42, MCV 93, and platelet count of 100,000 with normal manual differential. His chemistry showed a serum sodium 142, potassium 4.4, chloride 104, bicarbonate 35, anion gap of 3, BUN 62, creatinine 1.1, estimated GFR was 68 mL per minute. His glucose was 96, calcium was 9.5. Total bilirubin, AST, ALT, alkaline phosphatase were normal. His total protein was 7, albumin was 3.5. His hemoglobin A1c was 4.9%. Serum triglycerides were 88, total cholesterol was 183, LDL cholesterol was 94, VLDL was 17, and HDL cholesterol was 72, the ratio was 2. His vitamin B12 was 379. His TSH was high at 9.563, however, total T4 and free T4 was 112. All in all, the patient seems to be medically stable. I will definitely continue all his current medication. I will follow with his lab work still pending and make necessary recommendation. Thank you Dr. Ramirez for allowing me to participate in the care of this patient. ROWDY BRYSON MD DR: ANTHONY/carey JOB#: [id number] / [id number]
[2019-02-22 05:52] VITALS: BP 139/85
[2019-02-22] MEDS: DOCUSATE SODIUM 100 MG CAPSULE PO SCH (07:43)
[2019-02-22] MEDS: risperiDONE ORAL 1 MG/ML 30ml BOTTLE. SL SCH (07:46)
[2019-02-22 16:43] VITALS: BP 125/83
[2019-02-22] MEDS: SENNOSIDES/DOCUSATE 8.6/50MG TABLET. PO SCH (19:25)
--- NOTE | 2019-02-22 22:31 | PDOC ---
Exam Note: Hakan Note: Please also refer to the separate dictated note~for this date of service dictated separately.~Patient seen individually. Discussed the patient with Nursing staff reviewed the chart.~Reviewed interim history and current functioning. Reviewed vital signs,~Labs/ Radiology~and current medications noted below. Continue current treatment with the changes noted in the dictated addendum note Assessment: Vital Signs: Vital Signs Date Time Temp Pulse Resp B/P (MAP) Pulse Ox O2 Delivery O2 Flow Rate FiO2 02/22/19 16:43 98.1 87 16 125/83 (97) 94 02/21/19 16:19 Room Air I&O Intake and Output 02/22/19 06:59 Intake Total 480 ml Balance 480 ml Intake Oral 480 ml Current Medications: Meds: Current Medications Sodium Chloride 1,000 ml @ 1,000 mls/hr Q1H IV Last administered on 02/10/19at 20:18; Start 02/10/19 at 20:11; Stop 02/10/19 at 21:59; Status DC Acetaminophen (Tylenol) 650 mg PRN Q6HRS PRN PO PAIN / TEMP; Start 02/11/19 at 01:00; Status Cancel Multi-Ingredient Ointment (Analgesic [place]) 1 kyle PRN QID PRN TP MUSCLE PAIN; Start 02/11/19 at 01:00 Al Hydroxide/Mg Hydroxide (Mylanta Plus Xs) 15 ml PRN AFTMEALHC PRN PO DYSPEPSIA; Start 02/11/19 at 01:00 Magnesium Hydroxide (Milk Of Magnesia) 2,400 mg PRN QHS PRN PO CONSTIPATION; Start 02/11/19 at 01:00; Status Cancel Acetaminophen (Tylenol) 325 mg PRN Q4HRS PO ; Start 02/11/19 at 05:30; Stop 02/16/19 at 02:07; Status DC Sodium Biphosphate/ Sodium Phosphate (Fleet Adult) 133 ml PRN Q24HRS PRN RC CONSTIPATION; Start 02/11/19 at 05:30 Senna/Docusate Sodium (Senna Plus) 1 tab HS PO Last administered on 02/22/19at 19:25; Start 02/11/19 at 21:00 Docusate Sodium (Colace) 100 mg DAILY PO Last administered on 02/22/19at 07:43; Start 02/11/19 at 09:00 Glycerin (Sani-Supp Adult) 1 supp PRN Q24HRS PRN RC CONSTIPATION; Start 02/11/19 at 05:30 Lactulose (Lactulose) 20 gm PRN Q24HRS PRN PO CONSTIPATION; Start 02/11/19 at 05:30 Magnesium Hydroxide (Milk Of Magnesia) 2,400 mg PRN Q24HRS PRN PO CONSTIPATION Last administered on 02/17/19 20:38; Start 02/11/19 at 05:30 Risperidone (RisperDAL) 1 mg DAILY SL Last administered on 02/22/19 07:46; Start 02/12/19 at 09:00 Risperidone (RisperDAL CONSTA) 25 mg Q2WKS IM Last administered on 02/14/19 08:29; Start 02/14/19 at 09:00 Acetaminophen (Tylenol) 325 mg PRN Q4HRS PRN PO PAIN / TEMP Last administered on 02/17/19at 22:37; Start 02/16/19 at 02:15 Throat Lozenges (Chloraseptic) 1 spray PRN Q2HR PRN PO SORE THROAT Last administered on 02/17/19 10:20; Start 02/16/19 at 18:30 Throat Lozenges (Cepacol Sore Throat Lozenge) 1 tez PRN Q2HR PRN PO SORE THROAT Last administered on 02/16/19at 22:39; Start 02/16/19 at 18:45 Polyethylene Glycol (miraLAX) 17 gm PRN DAILY PRN PO CONSTIPATION Last administered on 02/20/19 08:11; Start 02/17/19 at 17:45 Polyethylene Glycol (miraLAX) 17 gm PRN DAILY PRN PO CONSTIPATION; Start 02/19/19 at 20:00 Active Scripts Active Reported Tylenol (Acetaminophen) 325 Mg Tablet 1 Tab PO PRN Q4HRS Senna Laxative Tablet (Sennosides/Docusate Sodium) 1 Each Tablet 1 Each PO HS Milk Of Magnesia (Magnesium Hydroxide) 2,400 Mg/10 Ml Oral.susp 2,400 Mg PO PRN Q24HRS PRN Lactulose 10 Gm/15 Ml Solution 30 Ml PO PRN Q24HRS PRN Laxative Suppository (Glycerin) 1 Each Supp.rect 1 Each RC PRN Q24HRS PRN Fleet Enema (Na Phos,M-B/Na Phos,Di-Ba) 133 Ml Enema 133 Ml RC PRN Q24HRS PRN Colace (Docusate Sodium) 100 Mg Capsule 100 Mg PO DAILY I have reviewed the current psychotropics carefully including drug interactions. Risk benefit ratio favors no change other than as noted in my dictated progress note. Diagnosis: Problems: (1) Anxiety disorder (2) Bipolar affective, mixed, sev w/ psych (3) Impulse control disorder (4) Schizoaffective disorder, chronic condition with acute exacerbation RASHAWN GRAVES MD Feb 22, 2019 22:31
[2019-02-23 06:07] VITALS: BP 133/84
[2019-02-23] MEDS: DOCUSATE SODIUM 100 MG CAPSULE PO SCH (07:58)
[2019-02-23] MEDS: risperiDONE ORAL 1 MG/ML 30ml BOTTLE. SL SCH (07:58)
[2019-02-23 16:13] VITALS: BP 137/84
[2019-02-23] MEDS: SENNOSIDES/DOCUSATE 8.6/50MG TABLET. PO SCH ×2 (20:10→21:00)
--- NOTE | 2019-02-23 22:35 | PDOC ---
Exam Note: Hakan Note: Please also refer to the separate dictated note~for this date of service dictated separately.~Patient seen individually. Discussed the patient with Nursing staff reviewed the chart.~Reviewed interim history and current functioning. Reviewed vital signs,~Labs/ Radiology~and current medications noted below. Continue current treatment with the changes noted in the dictated addendum note Assessment: Vital Signs: Vital Signs Date Time Temp Pulse Resp B/P (MAP) Pulse Ox O2 Delivery O2 Flow Rate FiO2 02/23/19 16:13 97.6 74 16 137/84 (101) 98 02/21/19 16:19 Room Air I&O Intake and Output 02/23/19 06:59 Intake Total 720 ml Balance 720 ml Intake Oral 720 ml Current Medications: Meds: Current Medications Sodium Chloride 1,000 ml @ 1,000 mls/hr Q1H IV Last administered on 02/10/19at 20:18; Start 02/10/19 at 20:11; Stop 02/10/19 at 21:59; Status DC Acetaminophen (Tylenol) 650 mg PRN Q6HRS PRN PO PAIN / TEMP; Start 02/11/19 at 01:00; Status Cancel Multi-Ingredient Ointment (Analgesic [place]) 1 kyle PRN QID PRN TP MUSCLE PAIN; Start 02/11/19 at 01:00 Al Hydroxide/Mg Hydroxide (Mylanta Plus Xs) 15 ml PRN AFTMEALHC PRN PO DYSPEPSIA; Start 02/11/19 at 01:00 Magnesium Hydroxide (Milk Of Magnesia) 2,400 mg PRN QHS PRN PO CONSTIPATION; Start 02/11/19 at 01:00; Status Cancel Acetaminophen (Tylenol) 325 mg PRN Q4HRS PO ; Start 02/11/19 at 05:30; Stop 02/16/19 at 02:07; Status DC Sodium Biphosphate/ Sodium Phosphate (Fleet Adult) 133 ml PRN Q24HRS PRN RC CONSTIPATION; Start 02/11/19 at 05:30 Senna/Docusate Sodium (Senna Plus) 1 tab HS PO Last administered on 02/23/19at 20:10; Start 02/11/19 at 21:00 Docusate Sodium (Colace) 100 mg DAILY PO Last administered on 02/23/19at 07:58; Start 02/11/19 at 09:00 Glycerin (Sani-Supp Adult) 1 supp PRN Q24HRS PRN RC CONSTIPATION; Start 02/11/19 at 05:30 Lactulose (Lactulose) 20 gm PRN Q24HRS PRN PO CONSTIPATION; Start 02/11/19 at 05:30 Magnesium Hydroxide (Milk Of Magnesia) 2,400 mg PRN Q24HRS PRN PO CONSTIPATION Last administered on 02/17/19 20:38; Start 02/11/19 at 05:30 Risperidone (RisperDAL) 1 mg DAILY SL Last administered on 02/23/19 07:58; Start 02/12/19 at 09:00 Risperidone (RisperDAL CONSTA) 25 mg Q2WKS IM Last administered on 02/14/19 08:29; Start 02/14/19 at 09:00 Acetaminophen (Tylenol) 325 mg PRN Q4HRS PRN PO PAIN / TEMP Last administered on 02/17/19 22:37; Start 02/16/19 at 02:15 Throat Lozenges (Chloraseptic) 1 spray PRN Q2HR PRN PO SORE THROAT Last administered on 02/17/19 10:20; Start 02/16/19 at 18:30 Throat Lozenges (Cepacol Sore Throat Lozenge) 1 tez PRN Q2HR PRN PO SORE THROAT Last administered on 02/16/19at 22:39; Start 02/16/19 at 18:45 Polyethylene Glycol (miraLAX) 17 gm PRN DAILY PRN PO CONSTIPATION Last administered on 02/20/19 08:11; Start 02/17/19 at 17:45 Polyethylene Glycol (miraLAX) 17 gm PRN DAILY PRN PO CONSTIPATION; Start 02/19/19 at 20:00 Active Scripts Active Reported Tylenol (Acetaminophen) 325 Mg Tablet 1 Tab PO PRN Q4HRS Senna Laxative Tablet (Sennosides/Docusate Sodium) 1 Each Tablet 1 Each PO HS Milk Of Magnesia (Magnesium Hydroxide) 2,400 Mg/10 Ml Oral.susp 2,400 Mg PO PRN Q24HRS PRN Lactulose 10 Gm/15 Ml Solution 30 Ml PO PRN Q24HRS PRN Laxative Suppository (Glycerin) 1 Each Supp.rect 1 Each RC PRN Q24HRS PRN Fleet Enema (Na Phos,M-B/Na Phos,Di-Ba) 133 Ml Enema 133 Ml RC PRN Q24HRS PRN Colace (Docusate Sodium) 100 Mg Capsule 100 Mg PO DAILY I have reviewed the current psychotropics carefully including drug interactions. Risk benefit ratio favors no change other than as noted in my dictated progress note. Diagnosis: Problems: (1) Anxiety disorder (2) Bipolar affective, mixed, sev w/ psych (3) Impulse control disorder (4) Schizoaffective disorder, chronic condition with acute exacerbation RASHAWN GRAVES MD Feb 23, 2019 22:35
--- NOTE | 2019-02-24 06:12 | PN ---
DATE: 02/21/2019 PSYCHIATRIC PROGRESS NOTE This late entry 02/21/2019 covers elements not covered in my initial note. SUBJECTIVE: I met with the patient evening of 02/21/2019. The patient slept 7-1/4 hours previous night. He has done better during the day, did take his Risperdal little more compliant with this. REVIEW OF SYSTEMS: Ambulation impaired, in wheelchair with bilateral below-knee amputation. Does complain of constipation, is taking MiraLax for this. No CV, , pulmonary, eye system symptoms on review. MENTAL STATUS EXAM: Reasonably oriented. Speech is coherent, abstraction fair, computation impaired, language function intact, attention span short. Mood and affect showing improvement, less paranoid. LABORATORY DATA: Reviewed. IMPRESSION: Unchanged from initial note. PLAN: No change from initial note. MAN Enrique GRAVES MD DR: COLTEN/carey JOB#: [id number] / [id number]
[2019-02-24 06:18] VITALS: BP 124/77
--- NOTE | 2019-02-24 07:02 | PN ---
DATE: 02/22/2019 PSYCHIATRIC PROGRESS NOTE This late entry 02/22/2019 covers elements not covered in my initial note. SUBJECTIVE: I met with the patient in the evening in his room at length. The patient slept 8-1/4 hours previous night. Overall, he is doing better, less paranoid. REVIEW OF SYSTEMS: Ambulation impaired, in wheelchair due to bilateral below-knee amputation. No CV, , pulmonary, eye system symptoms on review, does complain of constipation. MENTAL STATUS EXAM: Reasonably oriented. Speech is coherent, abstraction fair, computation impaired, language function intact, attention span short. Mood and affect still somewhat withdrawn, but showing improvement. LABORATORY DATA: Reviewed. IMPRESSION: Schizoaffective disorder, bipolar type, mixed with psychotic features, in partial remission. Rest unchanged. PLAN: Reduce oral Risperdal gradually, maintain Risperdal Consta for now. Adjust further as clinically indicated. MAN Enrique GRAVES MD DR: COLTEN/carey JOB#: [id number] / [id number]
[2019-02-24 07:29] LABS: BASO # 0.1 x10^3/uL (0.0-0.2); BASO % 1 % (0-3); EOS # 0.1 x10^3/uL (0.0-0.7); EOS % 2 % (0-3); HEMATOCRIT 39.5 % (39.0-53.0); HEMOGLOBIN 13.5 g/dL (13.0-17.5); LYMPH # 0.9 x10^3/uL (1.0-4.8); LYMPH % 19 % (24-48); MEAN CORPUSCULAR HEMOGLOBIN 32 pg (25-35); MEAN CORPUSCULAR HGB CONC 34 g/dL (31-37); MEAN CORPUSCULAR VOLUME 92 fL (79-100); MONO # 0.5 x10^3/uL (0.0-1.1); MONO % 10 % (0-9); NEUT # 3.2 x10^3uL (1.8-7.7); NEUT % 67 % (31-73); PLATELET COUNT 218 x10^3/uL (140-400); RED CELL DISTRIBUTION WIDTH 13.5 % (11.5-14.5); WHITE BLOOD COUNT 4.8 x10^3/uL (4.0-11.0)
[2019-02-24 07:41] LABS: ALBUMIN/GLOBULIN RATIO 0.9 (1.0-1.7); CALCIUM 8.9 mg/dL (8.5-10.1); TOTAL BILIRUBIN 0.3 mg/dL (0.2-1.0); TOTAL PROTEIN 6.3 g/dL (6.4-8.2)
[2019-02-24] MEDS: risperiDONE ORAL 1 MG/ML 30ml BOTTLE. SL SCH (07:45)
--- NOTE | 2019-02-24 07:45 | PN ---
DATE: 02/22/2019 PSYCHIATRIC PROGRESS NOTE This late entry 02/22/2019 covers elements not covered in my initial note. SUBJECTIVE: I met with the patient in the evening in his room. The patient slept 7-3/4 hours previous night, somewhat isolative, compliant with medications. No suicidal ideation. REVIEW OF SYSTEMS: Ambulation impaired, in wheelchair due to bilateral below-knee amputation. He does state he has had another bowel movement. No CV, , pulmonary, eye system symptoms on review. MENTAL STATUS EXAM: Reasonably oriented. Speech is coherent, abstraction fair, computation somewhat impaired, language function intact. He is much less psychotic. Mood and affect is improved. IMPRESSION: Unchanged from initial note. PLAN: Reduce oral Risperdal from 1 mg daily down to 0.75 mg daily. Maintain Risperdal Consta for now. MAN Enrique GRAVES MD DR: COLTEN/carey JOB#: [id number] / [id number]
[2019-02-24] MEDS: DOCUSATE SODIUM 100 MG CAPSULE PO SCH (09:00)
[2019-02-24 15:59] VITALS: BP 111/68
[2019-02-24] MEDS: SENNOSIDES/DOCUSATE 8.6/50MG TABLET. PO SCH (19:46)
--- NOTE | 2019-02-24 22:19 | PDOC ---
Exam Note: Hakan Note: Please also refer to the separate dictated note~for this date of service dictated separately.~Patient seen individually. Discussed the patient with Nursing staff reviewed the chart.~Reviewed interim history and current functioning. Reviewed vital signs,~Labs/ Radiology~and current medications noted below. Continue current treatment with the changes noted in the dictated addendum note Assessment: Vital Signs: Vital Signs Date Time Temp Pulse Resp B/P (MAP) Pulse Ox O2 Delivery O2 Flow Rate FiO2 02/24/19 15:59 97.8 68 16 111/68 (82) 96 02/21/19 16:19 Room Air I&O Intake and Output 02/24/19 07:00 Intake Total 720 ml Balance 720 ml Intake Oral 720 ml Labs: Laboratory Tests Test 02/24/19 06:25 White Blood Count 4.8 x10^3/uL (4.0-11.0) Red Blood Count 4.30 x10^6/uL (4.30-5.70) Hemoglobin 13.5 g/dL (13.0-17.5) Hematocrit 39.5 % (39.0-53.0) Mean Corpuscular Volume 92 fL (79-100) Mean Corpuscular Hemoglobin 32 pg (25-35) Mean Corpuscular Hemoglobin Concent 34 g/dL (31-37) Red Cell Distribution Width 13.5 % (11.5-14.5) Platelet Count 218 x10^3/uL (140-400) Neutrophils (%) (Auto) 67 % (31-73) Lymphocytes (%) (Auto) 19 % (24-48) L Monocytes (%) (Auto) 10 % (0-9) H Eosinophils (%) (Auto) 2 % (0-3) Basophils (%) (Auto) 1 % (0-3) Neutrophils # (Auto) 3.2 x10^3uL (1.8-7.7) Lymphocytes # (Auto) 0.9 x10^3/uL (1.0-4.8) L Monocytes # (Auto) 0.5 x10^3/uL (0.0-1.1) Eosinophils # (Auto) 0.1 x10^3/uL (0.0-0.7) Basophils # (Auto) 0.1 x10^3/uL (0.0-0.2) Sodium Level 142 mmol/L (136-145) Potassium Level 4.0 mmol/L (3.5-5.1) Chloride Level 105 mmol/L (98-107) Carbon Dioxide Level 31 mmol/L (21-32) Anion Gap 6 (6-14) Blood Urea Nitrogen 25 mg/dL (8-26) Creatinine 1.0 mg/dL (0.7-1.3) Estimated GFR (Cockcroft-Gault) 76.0 BUN/Creatinine Ratio 25 (6-20) H Glucose Level 77 mg/dL (70-99) Calcium Level 8.9 mg/dL (8.5-10.1) Total Bilirubin 0.3 mg/dL (0.2-1.0) Aspartate Amino Transferase (AST) 13 U/L (15-37) L Alanine Aminotransferase (ALT) 21 U/L (16-63) Alkaline Phosphatase 92 U/L (46-116) Total Protein 6.3 g/dL (6.4-8.2) L Albumin 3.0 g/dL (3.4-5.0) L Albumin/Globulin Ratio 0.9 (1.0-1.7) L Current Medications: Meds: Current Medications Sodium Chloride 1,000 ml @ 1,000 mls/hr Q1H IV Last administered on 02/10/19at 20:18; Start 02/10/19 at 20:11; Stop 02/10/19 at 21:59; Status DC Acetaminophen (Tylenol) 650 mg PRN Q6HRS PRN PO PAIN / TEMP; Start 02/11/19 at 01:00; Status Cancel Multi-Ingredient Ointment (Analgesic [place]) 1 kyle PRN QID PRN TP MUSCLE PAIN; Start 02/11/19 at 01:00 Al Hydroxide/Mg Hydroxide (Mylanta Plus Xs) 15 ml PRN AFTMEALHC PRN PO DYSPEPSIA; Start 02/11/19 at 01:00 Magnesium Hydroxide (Milk Of Magnesia) 2,400 mg PRN QHS PRN PO CONSTIPATION; Start 02/11/19 at 01:00; Status Cancel Acetaminophen (Tylenol) 325 mg PRN Q4HRS PO ; Start 02/11/19 at 05:30; Stop 02/16/19 at 02:07; Status DC Sodium Biphosphate/ Sodium Phosphate (Fleet Adult) 133 ml PRN Q24HRS PRN RC CONSTIPATION; Start 02/11/19 at 05:30 Senna/Docusate Sodium (Senna Plus) 1 tab HS PO Last administered on 02/22/19 19:25; Start 02/11/19 at 21:00 Docusate Sodium (Colace) 100 mg DAILY PO Last administered on 02/23/19 07:58; Start 02/11/19 at 09:00 Glycerin (Sani-Supp Adult) 1 supp PRN Q24HRS PRN RC CONSTIPATION; Start 02/11/19 at 05:30 Lactulose (Lactulose) 20 gm PRN Q24HRS PRN PO CONSTIPATION; Start 02/11/19 at 05:30 Magnesium Hydroxide (Milk Of Magnesia) 2,400 mg PRN Q24HRS PRN PO CONSTIPATION Last administered on 02/17/19 20:38; Start 02/11/19 at 05:30 Risperidone (RisperDAL) 1 mg DAILY SL Last administered on 02/23/19 07:58; Start 02/12/19 at 09:00; Stop 02/24/19 at 00:18; Status DC Risperidone (RisperDAL CONSTA) 25 mg Q2WKS IM Last administered on 02/14/19 08:29; Start 02/14/19 at 09:00 Acetaminophen (Tylenol) 325 mg PRN Q4HRS PRN PO PAIN / TEMP Last administered on 02/17/19 22:37; Start 02/16/19 at 02:15 Throat Lozenges (Chloraseptic) 1 spray PRN Q2HR PRN PO SORE THROAT Last administered on 02/17/19 10:20; Start 02/16/19 at 18:30 Throat Lozenges (Cepacol Sore Throat Lozenge) 1 tez PRN Q2HR PRN PO SORE THROAT Last administered on 02/16/19 22:39; Start 02/16/19 at 18:45 Polyethylene Glycol (miraLAX) 17 gm PRN DAILY PRN PO CONSTIPATION Last administered on 02/20/19 08:11; Start 02/17/19 at 17:45 Polyethylene Glycol (miraLAX) 17 gm PRN DAILY PRN PO CONSTIPATION; Start 02/19/19 at 20:00 Risperidone (RisperDAL) 0.75 mg DAILY SL Last administered on 02/24/19at 07:45; Start 02/24/19 at 09:00 Active Scripts Active Reported Tylenol (Acetaminophen) 325 Mg Tablet 1 Tab PO PRN Q4HRS Senna Laxative Tablet (Sennosides/Docusate Sodium) 1 Each Tablet 1 Each PO HS Milk Of Magnesia (Magnesium Hydroxide) 2,400 Mg/10 Ml Oral.susp 2,400 Mg PO PRN Q24HRS PRN Lactulose 10 Gm/15 Ml Solution 30 Ml PO PRN Q24HRS PRN Laxative Suppository (Glycerin) 1 Each Supp.rect 1 Each RC PRN Q24HRS PRN Fleet Enema (Na Phos,M-B/Na Phos,Di-Ba) 133 Ml Enema 133 Ml RC PRN Q24HRS PRN Colace (Docusate Sodium) 100 Mg Capsule 100 Mg PO DAILY I have reviewed the current psychotropics carefully including drug interactions. Risk benefit ratio favors no change other than as noted in my dictated progress note. Diagnosis: Problems: (1) Anxiety disorder (2) Bipolar affective, mixed, sev w/ psych (3) Impulse control disorder (4) Schizoaffective disorder, chronic condition with acute exacerbation RASHAWN GRAVES MD Feb 24, 2019 22:19
[2019-02-25 05:41] VITALS: BP 127/79
[2019-02-25] MEDS: risperiDONE ORAL 1 MG/ML 30ml BOTTLE. SL SCH (07:40)
[2019-02-25] MEDS: DOCUSATE SODIUM 100 MG CAPSULE PO SCH (09:00)
[2019-02-25 16:25] VITALS: BP 147/82
[2019-02-25] MEDS: SENNOSIDES/DOCUSATE 8.6/50MG TABLET. PO SCH (18:26)
--- NOTE | 2019-02-25 21:30 | PN ---
DATE: 02/24/2019 PSYCHIATRIC PROGRESS NOTE This late entry 02/24/2019 covers elements not covered in my initial note. SUBJECTIVE: I met with the patient in the evening of 02/24/2019. The patient slept 9 hours previous night. He remains somewhat withdrawn. Denies suicidal ideation. REVIEW OF SYSTEMS: Ambulation impaired, in wheelchair due to bilateral below-knee amputation. Complains of some constipation. No CV, , pulmonary, eye system symptoms on review. MENTAL STATUS EXAM: Reasonably oriented. Speech is coherent, has some latency. Abstraction fair, computation impaired, language function intact, attention span short. Mood and affect still withdrawn, but improved. LABORATORY DATA: Reviewed. IMPRESSION: Unchanged from initial note. PLAN: No change from initial note. MAN Enrique GRAVES MD DR: COLTEN/carey JOB#: [id number] / [id number]
--- NOTE | 2019-02-25 22:34 | PDOC ---
Exam Note: Hakan Note: Please also refer to the separate dictated note~for this date of service dictated separately.~Patient seen individually. Discussed the patient with Nursing staff reviewed the chart.~Reviewed interim history and current functioning. Reviewed vital signs,~Labs/ Radiology~and current medications noted below. Continue current treatment with the changes noted in the dictated addendum note Assessment: Vital Signs: Vital Signs Date Time Temp Pulse Resp B/P (MAP) Pulse Ox O2 Delivery O2 Flow Rate FiO2 02/25/19 16:25 97.5 64 16 147/82 (103) 98 02/21/19 16:19 Room Air I&O Intake and Output 02/25/19 06:59 Intake Total 840 ml Balance 840 ml Intake Oral 840 ml Current Medications: Meds: Current Medications Sodium Chloride 1,000 ml @ 1,000 mls/hr Q1H IV Last administered on 02/10/19at 20:18; Start 02/10/19 at 20:11; Stop 02/10/19 at 21:59; Status DC Acetaminophen (Tylenol) 650 mg PRN Q6HRS PRN PO PAIN / TEMP; Start 02/11/19 at 01:00; Status Cancel Multi-Ingredient Ointment (Analgesic [place]) 1 kyle PRN QID PRN TP MUSCLE PAIN; Start 02/11/19 at 01:00 Al Hydroxide/Mg Hydroxide (Mylanta Plus Xs) 15 ml PRN AFTMEALHC PRN PO DYSPEPSIA; Start 02/11/19 at 01:00 Magnesium Hydroxide (Milk Of Magnesia) 2,400 mg PRN QHS PRN PO CONSTIPATION; Start 02/11/19 at 01:00; Status Cancel Acetaminophen (Tylenol) 325 mg PRN Q4HRS PO ; Start 02/11/19 at 05:30; Stop 02/16/19 at 02:07; Status DC Sodium Biphosphate/ Sodium Phosphate (Fleet Adult) 133 ml PRN Q24HRS PRN RC CONSTIPATION; Start 02/11/19 at 05:30 Senna/Docusate Sodium (Senna Plus) 1 tab HS PO Last administered on 02/22/19at 19:25; Start 02/11/19 at 21:00 Docusate Sodium (Colace) 100 mg DAILY PO Last administered on 02/23/19at 07:58; Start 02/11/19 at 09:00 Glycerin (Sani-Supp Adult) 1 supp PRN Q24HRS PRN RC CONSTIPATION; Start 02/11/19 at 05:30 Lactulose (Lactulose) 20 gm PRN Q24HRS PRN PO CONSTIPATION; Start 02/11/19 at 05:30 Magnesium Hydroxide (Milk Of Magnesia) 2,400 mg PRN Q24HRS PRN PO CONSTIPATION Last administered on 02/17/19 20:38; Start 02/11/19 at 05:30 Risperidone (RisperDAL) 1 mg DAILY SL Last administered on 02/23/19 07:58; Start 02/12/19 at 09:00; Stop 02/24/19 at 00:18; Status DC Risperidone (RisperDAL CONSTA) 25 mg Q2WKS IM Last administered on 02/14/19 08:29; Start 02/14/19 at 09:00 Acetaminophen (Tylenol) 325 mg PRN Q4HRS PRN PO PAIN / TEMP Last administered on 02/17/19 22:37; Start 02/16/19 at 02:15 Throat Lozenges (Chloraseptic) 1 spray PRN Q2HR PRN PO SORE THROAT Last administered on 02/17/19 10:20; Start 02/16/19 at 18:30 Throat Lozenges (Cepacol Sore Throat Lozenge) 1 tez PRN Q2HR PRN PO SORE THROAT Last administered on 02/16/19 22:39; Start 02/16/19 at 18:45 Polyethylene Glycol (miraLAX) 17 gm PRN DAILY PRN PO CONSTIPATION Last administered on 02/20/19 08:11; Start 02/17/19 at 17:45 Polyethylene Glycol (miraLAX) 17 gm PRN DAILY PRN PO CONSTIPATION; Start 02/19/19 at 20:00 Risperidone (RisperDAL) 0.75 mg DAILY SL Last administered on 02/25/19 07:40; Start 02/24/19 at 09:00 Active Scripts Active Reported Tylenol (Acetaminophen) 325 Mg Tablet 1 Tab PO PRN Q4HRS Senna Laxative Tablet (Sennosides/Docusate Sodium) 1 Each Tablet 1 Each PO HS Milk Of Magnesia (Magnesium Hydroxide) 2,400 Mg/10 Ml Oral.susp 2,400 Mg PO PRN Q24HRS PRN Lactulose 10 Gm/15 Ml Solution 30 Ml PO PRN Q24HRS PRN Laxative Suppository (Glycerin) 1 Each Supp.rect 1 Each RC PRN Q24HRS PRN Fleet Enema (Na Phos,M-B/Na Phos,Di-Ba) 133 Ml Enema 133 Ml RC PRN Q24HRS PRN Colace (Docusate Sodium) 100 Mg Capsule 100 Mg PO DAILY I have reviewed the current psychotropics carefully including drug interactions. Risk benefit ratio favors no change other than as noted in my dictated progress note. Diagnosis: Problems: (1) Anxiety disorder (2) Bipolar affective, mixed, sev w/ psych (3) Impulse control disorder (4) Schizoaffective disorder, chronic condition with acute exacerbation RASHAWN GRAVES MD Feb 25, 2019 22:34
[2019-02-26 05:49] VITALS: BP 138/90
[2019-02-26] MEDS: DOCUSATE SODIUM 100 MG CAPSULE PO SCH (10:13)
[2019-02-26] MEDS: risperiDONE ORAL 1 MG/ML 30ml BOTTLE. SL SCH (10:13)
[2019-02-26 16:43] VITALS: BP 121/74
[2019-02-26] MEDS: SENNOSIDES/DOCUSATE 8.6/50MG TABLET. PO SCH (19:10)
--- NOTE | 2019-02-26 21:25 | PN ---
DATE: 02/25/2019 PSYCHIATRIC PROGRESS NOTE This late entry 02/25/2019 covers elements not covered in my initial note 02/25/2019. SUBJECTIVE: I met with the patient in the evening at length in his room. The patient slept 7-1/4 hours previous night. Previous night he was more talkative per nursing report, generally less depressed, somewhat withdrawn, but less paranoid and less psychotic. REVIEW OF SYSTEMS: Ambulation impaired, in wheelchair due to bilateral below-knee amputation. No CV, , pulmonary, eye system symptoms on review. MENTAL STATUS EXAM: Oriented reasonably. Speech has some latency, coherent. Abstraction fair, computation impaired, language function intact, attention span fair. Mood and affect is improved. LABORATORY DATA: Reviewed. IMPRESSION: Unchanged from initial note. PLAN: No change from initial note. MAN Enrique GRAVES MD DR: COLTEN/carey JOB#: [id number] / [id number]
--- NOTE | 2019-02-26 22:39 | PDOC ---
Exam Note: Hakan Note: Please also refer to the separate dictated note~for this date of service dictated separately.~Patient seen individually. Discussed the patient with Nursing staff reviewed the chart.~Reviewed interim history and current functioning. Reviewed vital signs,~Labs/ Radiology~and current medications noted below. Continue current treatment with the changes noted in the dictated addendum note Assessment: Vital Signs: Vital Signs Date Time Temp Pulse Resp B/P (MAP) Pulse Ox O2 Delivery O2 Flow Rate FiO2 02/26/19 16:43 98.1 63 16 121/74 (90) 97 02/21/19 16:19 Room Air I&O Intake and Output 02/26/19 06:59 Intake Total 1200 ml Balance 1200 ml Intake Oral 1200 ml Current Medications: Meds: Current Medications Sodium Chloride 1,000 ml @ 1,000 mls/hr Q1H IV Last administered on 02/10/19at 20:18; Start 02/10/19 at 20:11; Stop 02/10/19 at 21:59; Status DC Acetaminophen (Tylenol) 650 mg PRN Q6HRS PRN PO PAIN / TEMP; Start 02/11/19 at 01:00; Status Cancel Multi-Ingredient Ointment (Analgesic [place]) 1 kyle PRN QID PRN TP MUSCLE PAIN; Start 02/11/19 at 01:00 Al Hydroxide/Mg Hydroxide (Mylanta Plus Xs) 15 ml PRN AFTMEALHC PRN PO DYSPEPSIA; Start 02/11/19 at 01:00 Magnesium Hydroxide (Milk Of Magnesia) 2,400 mg PRN QHS PRN PO CONSTIPATION; Start 02/11/19 at 01:00; Status Cancel Acetaminophen (Tylenol) 325 mg PRN Q4HRS PO ; Start 02/11/19 at 05:30; Stop 02/16/19 at 02:07; Status DC Sodium Biphosphate/ Sodium Phosphate (Fleet Adult) 133 ml PRN Q24HRS PRN RC CONSTIPATION; Start 02/11/19 at 05:30 Senna/Docusate Sodium (Senna Plus) 1 tab HS PO Last administered on 02/26/19at 19:10; Start 02/11/19 at 21:00 Docusate Sodium (Colace) 100 mg DAILY PO Last administered on 02/26/19at 10:13; Start 02/11/19 at 09:00 Glycerin (Sani-Supp Adult) 1 supp PRN Q24HRS PRN RC CONSTIPATION; Start 02/11/19 at 05:30 Lactulose (Lactulose) 20 gm PRN Q24HRS PRN PO CONSTIPATION; Start 02/11/19 at 05:30 Magnesium Hydroxide (Milk Of Magnesia) 2,400 mg PRN Q24HRS PRN PO CONSTIPATION Last administered on 02/17/19 20:38; Start 02/11/19 at 05:30 Risperidone (RisperDAL) 1 mg DAILY SL Last administered on 02/23/19 07:58; Start 02/12/19 at 09:00; Stop 02/24/19 at 00:18; Status DC Risperidone (RisperDAL CONSTA) 25 mg Q2WKS IM Last administered on 02/14/19 08:29; Start 02/14/19 at 09:00 Acetaminophen (Tylenol) 325 mg PRN Q4HRS PRN PO PAIN / TEMP Last administered on 02/17/19 22:37; Start 02/16/19 at 02:15 Throat Lozenges (Chloraseptic) 1 spray PRN Q2HR PRN PO SORE THROAT Last administered on 02/17/19 10:20; Start 02/16/19 at 18:30 Throat Lozenges (Cepacol Sore Throat Lozenge) 1 tez PRN Q2HR PRN PO SORE THROAT Last administered on 02/16/19 22:39; Start 02/16/19 at 18:45 Polyethylene Glycol (miraLAX) 17 gm PRN DAILY PRN PO CONSTIPATION Last administered on 02/20/19 08:11; Start 02/17/19 at 17:45 Polyethylene Glycol (miraLAX) 17 gm PRN DAILY PRN PO CONSTIPATION; Start 02/19/19 at 20:00 Risperidone (RisperDAL) 0.75 mg DAILY SL Last administered on 02/26/19 10:13; Start 02/24/19 at 09:00; Stop 02/26/19 at 17:03; Status DC Risperidone (RisperDAL) 0.5 mg DAILY SL ; Start 02/27/19 at 09:00 Active Scripts Active Reported Tylenol (Acetaminophen) 325 Mg Tablet 1 Tab PO PRN Q4HRS Senna Laxative Tablet (Sennosides/Docusate Sodium) 1 Each Tablet 1 Each PO HS Milk Of Magnesia (Magnesium Hydroxide) 2,400 Mg/10 Ml Oral.susp 2,400 Mg PO PRN Q24HRS PRN Lactulose 10 Gm/15 Ml Solution 30 Ml PO PRN Q24HRS PRN Laxative Suppository (Glycerin) 1 Each Supp.rect 1 Each RC PRN Q24HRS PRN Fleet Enema (Na Phos,M-B/Na Phos,Di-Ba) 133 Ml Enema 133 Ml RC PRN Q24HRS PRN Colace (Docusate Sodium) 100 Mg Capsule 100 Mg PO DAILY I have reviewed the current psychotropics carefully including drug interactions. Risk benefit ratio favors no change other than as noted in my dictated progress note. Diagnosis: Problems: (1) Anxiety disorder (2) Bipolar affective, mixed, sev w/ psych (3) Impulse control disorder (4) Schizoaffective disorder, chronic condition with acute exacerbation RASHAWN GRAVES MD Feb 26, 2019 22:39
[2019-02-27 05:59] VITALS: BP 139/80
[2019-02-27] MEDS: risperiDONE ORAL 1 MG/ML 30ml BOTTLE. SL SCH (07:36)
[2019-02-27] MEDS: DOCUSATE SODIUM 100 MG CAPSULE PO SCH (07:36)
[2019-02-27 15:43] VITALS: BP 123/81
[2019-02-27] MEDS: SENNOSIDES/DOCUSATE 8.6/50MG TABLET. PO SCH (19:44)
--- NOTE | 2019-02-27 22:47 | PDOC ---
Exam Note: Hakan Note: Please also refer to the separate dictated note~for this date of service dictated separately.~Patient seen individually. Discussed the patient with Nursing staff reviewed the chart.~Reviewed interim history and current functioning. Reviewed vital signs,~Labs/ Radiology~and current medications noted below. Continue current treatment with the changes noted in the dictated addendum note Assessment: Vital Signs: Vital Signs Date Time Temp Pulse Resp B/P (MAP) Pulse Ox O2 Delivery O2 Flow Rate FiO2 02/27/19 15:43 98.7 74 18 123/81 (95) 98 02/21/19 16:19 Room Air I&O Intake and Output 02/27/19 07:00 Intake Total 960 ml Output Total 300 ml Balance 660 ml Intake Oral 960 ml Output Urine Total 300 ml Current Medications: Meds: Current Medications Sodium Chloride 1,000 ml @ 1,000 mls/hr Q1H IV Last administered on 02/10/19at 20:18; Start 02/10/19 at 20:11; Stop 02/10/19 at 21:59; Status DC Acetaminophen (Tylenol) 650 mg PRN Q6HRS PRN PO PAIN / TEMP; Start 02/11/19 at 01:00; Status Cancel Multi-Ingredient Ointment (Analgesic [place]) 1 kyle PRN QID PRN TP MUSCLE PAIN; Start 02/11/19 at 01:00 Al Hydroxide/Mg Hydroxide (Mylanta Plus Xs) 15 ml PRN AFTMEALHC PRN PO DYSPEPSIA; Start 02/11/19 at 01:00 Magnesium Hydroxide (Milk Of Magnesia) 2,400 mg PRN QHS PRN PO CONSTIPATION; Start 02/11/19 at 01:00; Status Cancel Acetaminophen (Tylenol) 325 mg PRN Q4HRS PO ; Start 02/11/19 at 05:30; Stop 02/16/19 at 02:07; Status DC Sodium Biphosphate/ Sodium Phosphate (Fleet Adult) 133 ml PRN Q24HRS PRN RC CONSTIPATION; Start 02/11/19 at 05:30 Senna/Docusate Sodium (Senna Plus) 1 tab HS PO Last administered on 02/27/19at 19:44; Start 02/11/19 at 21:00 Docusate Sodium (Colace) 100 mg DAILY PO Last administered on 02/27/19at 07:36; Start 02/11/19 at 09:00 Glycerin (Sani-Supp Adult) 1 supp PRN Q24HRS PRN RC CONSTIPATION; Start 02/11/19 at 05:30 Lactulose (Lactulose) 20 gm PRN Q24HRS PRN PO CONSTIPATION; Start 02/11/19 at 0 5:30 Magnesium Hydroxide (Milk Of Magnesia) 2,400 mg PRN Q24HRS PRN PO CONSTIPATION Last administered on 02/17/19 20:38; Start 02/11/19 at 05:30 Risperidone (RisperDAL) 1 mg DAILY SL Last administered on 02/23/19 07:58; Start 02/12/19 at 09:00; Stop 02/24/19 at 00:18; Status DC Risperidone (RisperDAL CONSTA) 25 mg Q2WKS IM Last administered on 02/14/19 08:29; Start 02/14/19 at 09:00 Acetaminophen (Tylenol) 325 mg PRN Q4HRS PRN PO PAIN / TEMP Last administered on 02/17/19 22:37; Start 02/16/19 at 02:15 Throat Lozenges (Chloraseptic) 1 spray PRN Q2HR PRN PO SORE THROAT Last administered on 02/17/19 10:20; Start 02/16/19 at 18:30 Throat Lozenges (Cepacol Sore Throat Lozenge) 1 tez PRN Q2HR PRN PO SORE THROAT Last administered on 02/16/19 22:39; Start 02/16/19 at 18:45 Polyethylene Glycol (miraLAX) 17 gm PRN DAILY PRN PO CONSTIPATION Last administered on 02/20/19 08:11; Start 02/17/19 at 17:45 Polyethylene Glycol (miraLAX) 17 gm PRN DAILY PRN PO CONSTIPATION; Start 02/19/19 at 20:00 Risperidone (RisperDAL) 0.75 mg DAILY SL Last administered on 02/26/19 10:13; Start 02/24/19 at 09:00; Stop 02/26/19 at 17:03; Status DC Risperidone (RisperDAL) 0.5 mg DAILY SL Last administered on 02/27/19 07:36; Start 02/27/19 at 09:00 Active Scripts Active Reported Tylenol (Acetaminophen) 325 Mg Tablet 1 Tab PO PRN Q4HRS Senna Laxative Tablet (Sennosides/Docusate Sodium) 1 Each Tablet 1 Each PO HS Milk Of Magnesia (Magnesium Hydroxide) 2,400 Mg/10 Ml Oral.susp 2,400 Mg PO PRN Q24HRS PRN Lactulose 10 Gm/15 Ml Solution 30 Ml PO PRN Q24HRS PRN Laxative Suppository (Glycerin) 1 Each Supp.rect 1 Each RC PRN Q24HRS PRN Fleet Enema (Na Phos,M-B/Na Phos,Di-Ba) 133 Ml Enema 133 Ml RC PRN Q24HRS PRN Colace (Docusate Sodium) 100 Mg Capsule 100 Mg PO DAILY I have reviewed the current psychotropics carefully including drug interactions. Risk benefit ratio favors no change other than as noted in my dictated progress note. Diagnosis: Problems: (1) Anxiety disorder (2) Bipolar affective, mixed, sev w/ psych (3) Impulse control disorder (4) Schizoaffective disorder, chronic condition with acute exacerbation RASHAWN GRAVES MD Feb 27, 2019 22:47
[2019-02-28 06:14] VITALS: BP 132/69
[2019-02-28] MEDS: risperiDONE ORAL 1 MG/ML 30ml BOTTLE. SL SCH ×2 (08:26→09:00)
[2019-02-28] MEDS: DOCUSATE SODIUM 100 MG CAPSULE PO SCH ×2 (08:27→08:57)
[2019-02-28] MEDS: risperiDONE MICROSPHERES 25 MG/2 ML DISP.SYRIN. IM SCH (08:28)
[2019-02-28 16:11] VITALS: BP 132/82
--- NOTE | 2019-02-28 17:24 | PN ---
DATE: 02/26/2019 PSYCHIATRIC PROGRESS NOTE This late entry 02/26/2019 covers elements not covered in my initial note. SUBJECTIVE: I met with the patient in the evening of 02/26/2019. The patient slept 8-1/4 hours previous night. He has been a little more compliant with his treatment, took a stool softener, somewhat withdrawn, isolative, but much less psychotic. REVIEW OF SYSTEMS: Ambulation impaired, in wheelchair with bilateral below-knee amputation. No CV, , pulmonary, eye system symptoms on review. MENTAL STATUS EXAM: Oriented reasonably. Speech is coherent, has some latency. Abstraction fair, computation impaired, language function intact, attention span short. Mood and affect withdrawn. LABORATORY DATA: Reviewed. IMPRESSION: Unchanged from initial note. PLAN: No change from initial note, but we will go ahead and reduce the Risperdal from 0.75 mg daily to 0.5 mg daily since he is on the Risperdal Self IM. MAN Enrique GRAVES MD DR: COLTEN/carey JOB#: [id number] / [id number]
[2019-02-28] MEDS: SENNOSIDES/DOCUSATE 8.6/50MG TABLET. PO SCH (19:12)
--- NOTE | 2019-02-28 22:27 | PDOC ---
Exam Note: Hakan Note: Please also refer to the separate dictated note~for this date of service dictated separately.~Patient seen individually. Discussed the patient with Nursing staff reviewed the chart.~Reviewed interim history and current functioning. Reviewed vital signs,~Labs/ Radiology~and current medications noted below. Continue current treatment with the changes noted in the dictated addendum note Assessment: Vital Signs: Vital Signs Date Time Temp Pulse Resp B/P (MAP) Pulse Ox O2 Delivery O2 Flow Rate FiO2 02/28/19 16:11 97.9 76 20 132/82 (99) 98 Room Air I&O Intake and Output 02/28/19 07:00 Intake Total 600 ml Output Total 700 ml Balance -100 ml Intake Oral 600 ml Output Urine Total 700 ml Current Medications: Meds: Current Medications Sodium Chloride 1,000 ml @ 1,000 mls/hr Q1H IV Last administered on 02/10/19at 20:18; Start 02/10/19 at 20:11; Stop 02/10/19 at 21:59; Status DC Acetaminophen (Tylenol) 650 mg PRN Q6HRS PRN PO PAIN / TEMP; Start 02/11/19 at 01:00; Status Cancel Multi-Ingredient Ointment (Analgesic [place]) 1 kyle PRN QID PRN TP MUSCLE PAIN; Start 02/11/19 at 01:00 Al Hydroxide/Mg Hydroxide (Mylanta Plus Xs) 15 ml PRN AFTMEALHC PRN PO DYSPEPSIA; Start 02/11/19 at 01:00 Magnesium Hydroxide (Milk Of Magnesia) 2,400 mg PRN QHS PRN PO CONSTIPATION; Start 02/11/19 at 01:00; Status Cancel Acetaminophen (Tylenol) 325 mg PRN Q4HRS PO ; Start 02/11/19 at 05:30; Stop 02/16/19 at 02:07; Status DC Sodium Biphosphate/ Sodium Phosphate (Fleet Adult) 133 ml PRN Q24HRS PRN RC CONSTIPATION; Start 02/11/19 at 05:30 Senna/Docusate Sodium (Senna Plus) 1 tab HS PO Last administered on 02/28/19at 19:12; Start 02/11/19 at 21:00 Docusate Sodium (Colace) 100 mg DAILY PO Last administered on 02/27/19at 07:36; Start 02/11/19 at 09:00 Glycerin (Sani-Supp Adult) 1 supp PRN Q24HRS PRN RC CONSTIPATION; Start 02/11/19 at 05:30 Lactulose (Lactulose) 20 gm PRN Q24HRS PRN PO CONSTIPATION; Start 02/11/19 at 05:30 Magnesium Hydroxide (Milk Of Magnesia) 2,400 mg PRN Q24HRS PRN PO CONSTIPATION Last administered on 02/17/19 20:38; Start 02/11/19 at 05:30 Risperidone (RisperDAL) 1 mg DAILY SL Last administered on 02/23/19 07:58; Start 02/12/19 at 09:00; Stop 02/24/19 at 00:18; Status DC Risperidone (RisperDAL CONSTA) 25 mg Q2WKS IM Last administered on 02/28/19 08:28; Start 02/14/19 at 09:00 Acetaminophen (Tylenol) 325 mg PRN Q4HRS PRN PO PAIN / TEMP Last administered on 02/17/19 22:37; Start 02/16/19 at 02:15 Throat Lozenges (Chloraseptic) 1 spray PRN Q2HR PRN PO SORE THROAT Last administered on 02/17/19 10:20; Start 02/16/19 at 18:30 Throat Lozenges (Cepacol Sore Throat Lozenge) 1 tez PRN Q2HR PRN PO SORE THROAT Last administered on 02/16/19 22:39; Start 02/16/19 at 18:45 Polyethylene Glycol (miraLAX) 17 gm PRN DAILY PRN PO CONSTIPATION Last administered on 02/20/19 08:11; Start 02/17/19 at 17:45 Polyethylene Glycol (miraLAX) 17 gm PRN DAILY PRN PO CONSTIPATION; Start 02/19/19 at 20:00 Risperidone (RisperDAL) 0.75 mg DAILY SL Last administered on 02/26/19 10:13; Start 02/24/19 at 09:00; Stop 02/26/19 at 17:03; Status DC Risperidone (RisperDAL) 0.5 mg DAILY SL Last administered on 02/27/19 07:36; Start 02/27/19 at 09:00 Active Scripts Active Reported Tylenol (Acetaminophen) 325 Mg Tablet 1 Tab PO PRN Q4HRS Senna Laxative Tablet (Sennosides/Docusate Sodium) 1 Each Tablet 1 Each PO HS Milk Of Magnesia (Magnesium Hydroxide) 2,400 Mg/10 Ml Oral.susp 2,400 Mg PO PRN Q24HRS PRN Lactulose 10 Gm/15 Ml Solution 30 Ml PO PRN Q24HRS PRN Laxative Suppository (Glycerin) 1 Each Supp.rect 1 Each RC PRN Q24HRS PRN Fleet Enema (Na Phos,M-B/Na Phos,Di-Ba) 133 Ml Enema 133 Ml RC PRN Q24HRS PRN Colace (Docusate Sodium) 100 Mg Capsule 100 Mg PO DAILY I have reviewed the current psychotropics carefully including drug interactions. Risk benefit ratio favors no change other than as noted in my dictated progress note. Diagnosis: Problems: (1) Anxiety disorder (2) Bipolar affective, mixed, sev w/ psych (3) Impulse control disorder (4) Schizoaffective disorder, chronic condition with acute exacerbation RASHAWN GRAVES MD Feb 28, 2019 22:27
[2019-03-01 06:40] VITALS: BP 136/78
[2019-03-01] MEDS: risperiDONE ORAL 1 MG/ML 30ml BOTTLE. SL SCH (10:30)
[2019-03-01] MEDS: DOCUSATE SODIUM 100 MG CAPSULE PO SCH (10:30)
--- NOTE | 2019-03-01 15:15 | PN ---
DATE: 02/27/2019 PSYCHIATRIC PROGRESS NOTE This late entry, 02/27/2019, covers elements not covered in my initial note. SUBJECTIVE: I met with the patient in the evening, staffed at a treatment team meeting with the entire team in the morning. The patient's appetite 100%, sleeping about 8 hours average. He remains withdrawn with poor eye contact, but more accepting of his medications and not refusing including stool softeners. REVIEW OF SYSTEMS: Ambulation impaired, in wheelchair due to bilateral below-knee amputation. No CV, , pulmonary, eye system symptoms on review. MENTAL STATUS EXAM: Oriented reasonably. Speech has some latency, coherent. Abstraction fair, computation impaired, language function intact, attention span short. Mood and affect somewhat withdrawn. For the most part, he is well oriented and even though he seems a little forgetful at times for the most part, memory is reasonable. LABORATORY DATA: Reviewed. IMPRESSION: Schizoaffective disorder, bipolar type, mixed with psychotic features, in partial remission. Rest unchanged. PLAN: No change from a psychiatric standpoint, persevere with his psychotropics. Oral Risperdal has been reduced. Maintain Risperdal Consta. I will ultimately stop the oral Risperdal. RASHAWN GRAVES MD DR: COLTEN/carey JOB#: [id number] / [id number]
[2019-03-01 16:08] VITALS: BP 126/76
--- NOTE | 2019-03-01 16:38 | PN ---
DATE: 02/28/2019 PSYCHIATRIC PROGRESS NOTE This late entry of 02/28/2019 covers elements not covered in my initial note. SUBJECTIVE: I met with the patient in the evening. He has been withdrawn, somewhat resistive to medications. Alert, oriented asleep in his bed earlier in the evening, slept 8-1/4 hours. REVIEW OF SYSTEMS: No CV, , pulmonary, eye, ENT system symptoms on review. MENTAL STATUS EXAM: Oriented to himself and situation. Speech is coherent, has some latency. Abstraction fair, computation impaired, language function intact. Mood and affect somewhat anxious, withdrawn, but improved. He caught me on a couple of occasions after I met with him on rounds repeatedly asking me about discharge plans. I have left it for Sunday or Sunday; we will defer to social service staff to coordinate this. Continue current psychotropics. MAN Enrique GRAVES MD DR: COLTEN/carey JOB#: [id number] / [id number]
[2019-03-01] MEDS: SENNOSIDES/DOCUSATE 8.6/50MG TABLET. PO SCH (19:45)
--- NOTE | 2019-03-01 20:43 | PDOC ---
Exam Note: Hakan Note: Please also refer to the separate dictated note~for this date of service dictated separately.~Patient seen individually. Discussed the patient with Nursing staff reviewed the chart.~Reviewed interim history and current functioning. Reviewed vital signs,~Labs/ Radiology~and current medications noted below. Continue current treatment with the changes noted in the dictated addendum note Assessment: Vital Signs: Vital Signs Date Time Temp Pulse Resp B/P (MAP) Pulse Ox O2 Delivery O2 Flow Rate FiO2 03/01/19 16:08 97.7 69 16 126/76 (93) 97 Room Air I&O Intake and Output 03/01/19 07:00 Intake Total 600 ml Balance 600 ml Intake Oral 600 ml Current Medications: Meds: Current Medications Sodium Chloride 1,000 ml @ 1,000 mls/hr Q1H IV Last administered on 02/10/19at 20:18; Start 02/10/19 at 20:11; Stop 02/10/19 at 21:59; Status DC Acetaminophen (Tylenol) 650 mg PRN Q6HRS PRN PO PAIN / TEMP; Start 02/11/19 at 01:00; Status Cancel Multi-Ingredient Ointment (Analgesic [place]) 1 kyle PRN QID PRN TP MUSCLE PAIN; Start 02/11/19 at 01:00 Al Hydroxide/Mg Hydroxide (Mylanta Plus Xs) 15 ml PRN AFTMEALHC PRN PO DYSPEPSIA; Start 02/11/19 at 01:00 Magnesium Hydroxide (Milk Of Magnesia) 2,400 mg PRN QHS PRN PO CONSTIPATION; Start 02/11/19 at 01:00; Status Cancel Acetaminophen (Tylenol) 325 mg PRN Q4HRS PO ; Start 02/11/19 at 05:30; Stop 02/16/19 at 02:07; Status DC Sodium Biphosphate/ Sodium Phosphate (Fleet Adult) 133 ml PRN Q24HRS PRN RC CONSTIPATION; Start 02/11/19 at 05:30 Senna/Docusate Sodium (Senna Plus) 1 tab HS PO Last administered on 02/28/19at 19:12; Start 02/11/19 at 21:00 Docusate Sodium (Colace) 100 mg DAILY PO Last administered on 03/01/19at 10:30; Start 02/11/19 at 09:00 Glycerin (Sani-Supp Adult) 1 supp PRN Q24HRS PRN RC CONSTIPATION; Start 02/11/19 at 05:30 Lactulose (Lactulose) 20 gm PRN Q24HRS PRN PO CONSTIPATION; Start 02/11/19 at 05:30 Magnesium Hydroxide (Milk Of Magnesia) 2,400 mg PRN Q24HRS PRN PO CONSTIPATION Last administered on 02/17/19 20:38; Start 02/11/19 at 05:30 Risperidone (RisperDAL) 1 mg DAILY SL Last administered on 02/23/19 07:58; Start 02/12/19 at 09:00; Stop 02/24/19 at 00:18; Status DC Risperidone (RisperDAL CONSTA) 25 mg Q2WKS IM Last administered on 02/28/19 08:28; Start 02/14/19 at 09:00 Acetaminophen (Tylenol) 325 mg PRN Q4HRS PRN PO PAIN / TEMP Last administered on 02/17/19 22:37; Start 02/16/19 at 02:15 Throat Lozenges (Chloraseptic) 1 spray PRN Q2HR PRN PO SORE THROAT Last administered on 02/17/19 10:20; Start 02/16/19 at 18:30 Throat Lozenges (Cepacol Sore Throat Lozenge) 1 tez PRN Q2HR PRN PO SORE THROAT Last administered on 02/16/19 22:39; Start 02/16/19 at 18:45 Polyethylene Glycol (miraLAX) 17 gm PRN DAILY PRN PO CONSTIPATION Last administered on 02/20/19 08:11; Start 02/17/19 at 17:45 Polyethylene Glycol (miraLAX) 17 gm PRN DAILY PRN PO CONSTIPATION; Start 02/19/19 at 20:00 Risperidone (RisperDAL) 0.75 mg DAILY SL Last administered on 02/26/19 10:13; Start 02/24/19 at 09:00; Stop 02/26/19 at 17:03; Status DC Risperidone (RisperDAL) 0.5 mg DAILY SL Last administered on 03/01/19 10:30; Start 02/27/19 at 09:00 Active Scripts Active Reported Tylenol (Acetaminophen) 325 Mg Tablet 1 Tab PO PRN Q4HRS Senna Laxative Tablet (Sennosides/Docusate Sodium) 1 Each Tablet 1 Each PO HS Milk Of Magnesia (Magnesium Hydroxide) 2,400 Mg/10 Ml Oral.susp 2,400 Mg PO PRN Q24HRS PRN Lactulose 10 Gm/15 Ml Solution 30 Ml PO PRN Q24HRS PRN Laxative Suppository (Glycerin) 1 Each Supp.rect 1 Each RC PRN Q24HRS PRN Fleet Enema (Na Phos,M-B/Na Phos,Di-Ba) 133 Ml Enema 133 Ml RC PRN Q24HRS PRN Colace (Docusate Sodium) 100 Mg Capsule 100 Mg PO DAILY I have reviewed the current psychotropics carefully including drug interactions. Risk benefit ratio favors no change other than as noted in my dictated progress note. Diagnosis: Problems: (1) Anxiety disorder (2) Bipolar affective, mixed, sev w/ psych (3) Impulse control disorder (4) Schizoaffective disorder, chronic condition with acute exacerbation RASHAWN GRAVES MD Mar 01, 2019 20:43
[2019-03-02 06:00] VITALS: BP 145/77
[2019-03-02] MEDS: DOCUSATE SODIUM 100 MG CAPSULE PO SCH (09:00)
[2019-03-02] MEDS: risperiDONE ORAL 1 MG/ML 30ml BOTTLE. SL SCH ×2 (09:00→12:11)
[2019-03-02 12:03] LABS: BASO % 1 % (0-3); EOS # 0.1 x10^3/uL (0.0-0.7); EOS % 1 % (0-3); HEMATOCRIT 39.7 % (39.0-53.0); HEMOGLOBIN 13.4 g/dL (13.0-17.5); LYMPH # 0.7 x10^3/uL (1.0-4.8); LYMPH % 13 % (24-48); MEAN CORPUSCULAR HEMOGLOBIN 31 pg (25-35); MEAN CORPUSCULAR HGB CONC 34 g/dL (31-37); MEAN CORPUSCULAR VOLUME 92 fL (79-100); MONO # 0.6 x10^3/uL (0.0-1.1); MONO % 10 % (0-9); NEUT # 4.3 x10^3uL (1.8-7.7); NEUT % 75 % (31-73); PLATELET COUNT 259 x10^3/uL (140-400); RED BLOOD COUNT 4.32 x10^6/uL (4.30-5.70); RED CELL DISTRIBUTION WIDTH 13.5 % (11.5-14.5); WHITE BLOOD COUNT 5.7 x10^3/uL (4.0-11.0)
[2019-03-02 12:10] LABS: ALBUMIN 3.1 g/dL (3.4-5.0); ALBUMIN/GLOBULIN RATIO 0.9 (1.0-1.7); CALCIUM 9.1 mg/dL (8.5-10.1); POTASSIUM 3.9 mmol/L (3.5-5.1); TOTAL BILIRUBIN 0.4 mg/dL (0.2-1.0); TOTAL PROTEIN 6.5 g/dL (6.4-8.2)
--- NOTE | 2019-03-02 12:41 | PN ---
DATE: 03/01/2019 PSYCHIATRIC PROGRESS NOTE This late entry 03/01/2019 covers elements not covered in my initial note. SUBJECTIVE: I met with the patient in the evening. The patient slept 8-1/2 hours previous night. He has refused his oral medications, but he is on the Risperdal Consta, which stabilizes his psychosis. He has been cooperative, otherwise. REVIEW OF SYSTEMS: Ambulation impaired, in wheelchair due to bilateral below-knee amputation. No CV, , pulmonary, eye system symptoms on review. MENTAL STATUS EXAM: Oriented to self and situation. Speech has some latency, coherent. Abstraction fair, computation somewhat impaired, language function intact, attention span short. Mood and affect showing general improvement, but still withdrawn. No suicidal or homicidal ideation. LABORATORY DATA: Reviewed. IMPRESSION: Unchanged from initial note. PLAN: No change from initial note. The patient had many questions about his discharge plans and we will discuss this for next week. RASHAWN GRAVES MD DR: COLTEN/carey JOB#: [id number] / [id number]
[2019-03-02 15:48] VITALS: BP 124/77
[2019-03-02] MEDS: SENNOSIDES/DOCUSATE 8.6/50MG TABLET. PO SCH (21:00)
--- NOTE | 2019-03-02 22:45 | PDOC ---
Exam Note: Hakan Note: Please also refer to the separate dictated note~for this date of service dictated separately.~Patient seen individually. Discussed the patient with Nursing staff reviewed the chart.~Reviewed interim history and current functioning. Reviewed vital signs,~Labs/ Radiology~and current medications noted below. Continue current treatment with the changes noted in the dictated addendum note Assessment: Vital Signs: Vital Signs Date Time Temp Pulse Resp B/P (MAP) Pulse Ox O2 Delivery O2 Flow Rate FiO2 03/02/19 15:48 97.3 62 16 124/77 (93) 99 03/01/19 16:08 Room Air I&O Intake and Output 03/02/19 06:59 Intake Total 840 ml Balance 840 ml Intake Oral 840 ml # Bowel Movements 1 Labs: Laboratory Tests Test 03/02/19 11:31 White Blood Count 5.7 x10^3/uL (4.0-11.0) Red Blood Count 4.32 x10^6/uL (4.30-5.70) Hemoglobin 13.4 g/dL (13.0-17.5) Hematocrit 39.7 % (39.0-53.0) Mean Corpuscular Volume 92 fL (79-100) Mean Corpuscular Hemoglobin 31 pg (25-35) Mean Corpuscular Hemoglobin Concent 34 g/dL (31-37) Red Cell Distribution Width 13.5 % (11.5-14.5) Platelet Count 259 x10^3/uL (140-400) Neutrophils (%) (Auto) 75 % (31-73) H Lymphocytes (%) (Auto) 13 % (24-48) L Monocytes (%) (Auto) 10 % (0-9) H Eosinophils (%) (Auto) 1 % (0-3) Basophils (%) (Auto) 1 % (0-3) Neutrophils # (Auto) 4.3 x10^3uL (1.8-7.7) Lymphocytes # (Auto) 0.7 x10^3/uL (1.0-4.8) L Monocytes # (Auto) 0.6 x10^3/uL (0.0-1.1) Eosinophils # (Auto) 0.1 x10^3/uL (0.0-0.7) Basophils # (Auto) 0.0 x10^3/uL (0.0-0.2) Sodium Level 140 mmol/L (136-145) Potassium Level 3.9 mmol/L (3.5-5.1) Chloride Level 104 mmol/L (98-107) Carbon Dioxide Level 30 mmol/L (21-32) Anion Gap 6 (6-14) Blood Urea Nitrogen 19 mg/dL (8-26) Creatinine 1.0 mg/dL (0.7-1.3) Estimated GFR (Cockcroft-Gault) 76.0 BUN/Creatinine Ratio 19 (6-20) Glucose Level 121 mg/dL (70-99) H Calcium Level 9.1 mg/dL (8.5-10.1) Total Bilirubin 0.4 mg/dL (0.2-1.0) Aspartate Amino Transferase (AST) 14 U/L (15-37) L Alanine Aminotransferase (ALT) 19 U/L (16-63) Alkaline Phosphatase 102 U/L (46-116) Total Protein 6.5 g/dL (6.4-8.2) Albumin 3.1 g/dL (3.4-5.0) L Albumin/Globulin Ratio 0.9 (1.0-1.7) L Current Medications: Meds: Current Medications Sodium Chloride 1,000 ml @ 1,000 mls/hr Q1H IV Last administered on 02/10/19at 20:18; Start 02/10/19 at 20:11; Stop 02/10/19 at 21:59; Status DC Acetaminophen (Tylenol) 650 mg PRN Q6HRS PRN PO PAIN / TEMP; Start 02/11/19 at 01:00; Status Cancel Multi-Ingredient Ointment (Analgesic [place]) 1 kyle PRN QID PRN TP MUSCLE PAIN; Start 02/11/19 at 01:00 Al Hydroxide/Mg Hydroxide (Mylanta Plus Xs) 15 ml PRN AFTMEALHC PRN PO DYSPEPSIA; Start 02/11/19 at 01:00 Magnesium Hydroxide (Milk Of Magnesia) 2,400 mg PRN QHS PRN PO CONSTIPATION; Start 02/11/19 at 01:00; Status Cancel Acetaminophen (Tylenol) 325 mg PRN Q4HRS PO ; Start 02/11/19 at 05:30; Stop 02/16/19 at 02:07; Status DC Sodium Biphosphate/ Sodium Phosphate (Fleet Adult) 133 ml PRN Q24HRS PRN RC CONSTIPATION; Start 02/11/19 at 05:30 Senna/Docusate Sodium (Senna Plus) 1 tab HS PO Last administered on 02/28/19 19:12; Start 02/11/19 at 21:00 Docusate Sodium (Colace) 100 mg DAILY PO Last administered on 03/01/19 10:30; Start 02/11/19 at 09:00 Glycerin (Sani-Supp Adult) 1 supp PRN Q24HRS PRN RC CONSTIPATION; Start 02/11/19 at 05:30 Lactulose (Lactulose) 20 gm PRN Q24HRS PRN PO CONSTIPATION; Start 02/11/19 at 05:30 Magnesium Hydroxide (Milk Of Magnesia) 2,400 mg PRN Q24HRS PRN PO CONSTIPATION Last administered on 02/17/19 20:38; Start 02/11/19 at 05:30 Risperidone (RisperDAL) 1 mg DAILY SL Last administered on 02/23/19 07:58; Start 02/12/19 at 09:00; Stop 02/24/19 at 00:18; Status DC Risperidone (RisperDAL CONSTA) 25 mg Q2WKS IM Last administered on 02/28/19 08:28; Start 02/14/19 at 09:00 Acetaminophen (Tylenol) 325 mg PRN Q4HRS PRN PO PAIN / TEMP Last administered on 02/17/19 22:37; Start 02/16/19 at 02:15 Throat Lozenges (Chloraseptic) 1 spray PRN Q2HR PRN PO SORE THROAT Last administered on 02/17/19 10:20; Start 02/16/19 at 18:30 Throat Lozenges (Cepacol Sore Throat Lozenge) 1 tez PRN Q2HR PRN PO SORE THROAT Last administered on 02/16/19 22:39; Start 02/16/19 at 18:45 Polyethylene Glycol (miraLAX) 17 gm PRN DAILY PRN PO CONSTIPATION Last administered on 02/20/19 08:11; Start 02/17/19 at 17:45 Polyethylene Glycol (miraLAX) 17 gm PRN DAILY PRN PO CONSTIPATION; Start 02/19/19 at 20:00; Stop 03/02/19 at 07:27; Status DC Risperidone (RisperDAL) 0.75 mg DAILY SL Last administered on 02/26/19at 10:13; Start 02/24/19 at 09:00; Stop 02/26/19 at 17:03; Status DC Risperidone (RisperDAL) 0.5 mg DAILY SL Last administered on 03/01/19at 10:30; S tart 02/27/19 at 09:00 Active Scripts Active Reported Tylenol (Acetaminophen) 325 Mg Tablet 1 Tab PO PRN Q4HRS Senna Laxative Tablet (Sennosides/Docusate Sodium) 1 Each Tablet 1 Each PO HS Milk Of Magnesia (Magnesium Hydroxide) 2,400 Mg/10 Ml Oral.susp 2,400 Mg PO PRN Q24HRS PRN Lactulose 10 Gm/15 Ml Solution 30 Ml PO PRN Q24HRS PRN Laxative Suppository (Glycerin) 1 Each Supp.rect 1 Each RC PRN Q24HRS PRN Fleet Enema (Na Phos,M-B/Na Phos,Di-Ba) 133 Ml Enema 133 Ml RC PRN Q24HRS PRN Colace (Docusate Sodium) 100 Mg Capsule 100 Mg PO DAILY I have reviewed the current psychotropics carefully including drug interactions. Risk benefit ratio favors no change other than as noted in my dictated progress note. Diagnosis: Problems: (1) Anxiety disorder (2) Bipolar affective, mixed, sev w/ psych (3) Impulse control disorder (4) Schizoaffective disorder, chronic condition with acute exacerbation RASHAWN GRAVES MD Mar 02, 2019 22:45
[2019-03-03 05:58] VITALS: BP 133/84
[2019-03-03] MEDS: DOCUSATE SODIUM 100 MG CAPSULE PO SCH (09:00)
--- NOTE | 2019-03-03 11:43 | PN ---
DATE: 03/02/2019 PSYCHIATRIC PROGRESS NOTE This late entry 03/02/2019 covers elements not covered in my initial note. SUBJECTIVE: Met with the patient in the evening. The patient slept 10 hours previous night. He is refusing his oral medications, but does have the Risperdal [place] on board. REVIEW OF SYSTEMS: Ambulation is impaired, in wheelchair. No CV, , pulmonary, eye system symptoms on review. MENTAL STATUS EXAM: Reasonably oriented. Speech has some latency, coherent. Abstraction is fair, computation impaired, language function intact, attention span short. Mood and affect still withdrawn, spends much time in his room, which is where I met with him, but psychotic symptoms appeared to have subsided. LABORATORY DATA: Reviewed. IMPRESSION: Unchanged from initial note. PLAN: No change from initial note and I discussed with him at length about being compliant with his oral psychotropics. MAN Enrique GRVAES MD DR: COLTEN/carey JOB#: [id number] / [id number]
[2019-03-03] MEDS: risperiDONE ORAL 1 MG/ML 30ml BOTTLE. SL SCH (13:23)
[2019-03-03 15:45] VITALS: BP 156/90
[2019-03-03] MEDS: SENNOSIDES/DOCUSATE 8.6/50MG TABLET. PO SCH (20:53)
--- NOTE | 2019-03-03 22:35 | PDOC ---
Exam Note: Hakan Note: Please also refer to the separate dictated note~for this date of service dictated separately.~Patient seen individually. Discussed the patient with Nursing staff reviewed the chart.~Reviewed interim history and current functioning. Reviewed vital signs,~Labs/ Radiology~and current medications noted below. Continue current treatment with the changes noted in the dictated addendum note Assessment: Vital Signs: Vital Signs Date Time Temp Pulse Resp B/P (MAP) Pulse Ox O2 Delivery O2 Flow Rate FiO2 03/03/19 15:45 98.0 69 18 156/90 (112) 98 03/01/19 16:08 Room Air I&O Intake and Output 03/03/19 07:00 Intake Total 1320 ml Balance 1320 ml Intake Oral 1320 ml Current Medications: Meds: Current Medications Sodium Chloride 1,000 ml @ 1,000 mls/hr Q1H IV Last administered on 02/10/19at 20:18; Start 02/10/19 at 20:11; Stop 02/10/19 at 21:59; Status DC Acetaminophen (Tylenol) 650 mg PRN Q6HRS PRN PO PAIN / TEMP; Start 02/11/19 at 01:00; Status Cancel Multi-Ingredient Ointment (Analgesic [place]) 1 kyle PRN QID PRN TP MUSCLE PAIN; Start 02/11/19 at 01:00 Al Hydroxide/Mg Hydroxide (Mylanta Plus Xs) 15 ml PRN AFTMEALHC PRN PO DYSPEPSIA; Start 02/11/19 at 01:00 Magnesium Hydroxide (Milk Of Magnesia) 2,400 mg PRN QHS PRN PO CONSTIPATION; Start 02/11/19 at 01:00; Status Cancel Acetaminophen (Tylenol) 325 mg PRN Q4HRS PO ; Start 02/11/19 at 05:30; Stop 02/16/19 at 02:07; Status DC Sodium Biphosphate/ Sodium Phosphate (Fleet Adult) 133 ml PRN Q24HRS PRN RC CONSTIPATION; Start 02/11/19 at 05:30 Senna/Docusate Sodium (Senna Plus) 1 tab HS PO Last administered on 03/03/19at 20:53; Start 02/11/19 at 21:00 Docusate Sodium (Colace) 100 mg DAILY PO Last administered on 03/01/19at 10:30; Start 02/11/19 at 09:00 Glycerin (Sani-Supp Adult) 1 supp PRN Q24HRS PRN RC CONSTIPATION; Start 02/11/19 at 05:30 Lactulose (Lactulose) 20 gm PRN Q24HRS PRN PO CONSTIPATION; Start 02/11/19 at 05:30 Magnesium Hydroxide (Milk Of Magnesia) 2,400 mg PRN Q24HRS PRN PO CONSTIPATION Last administered on 02/17/19 20:38; Start 02/11/19 at 05:30 Risperidone (RisperDAL) 1 mg DAILY SL Last administered on 02/23/19 07:58; Start 02/12/19 at 09:00; Stop 02/24/19 at 00:18; Status DC Risperidone (RisperDAL CONSTA) 25 mg Q2WKS IM Last administered on 02/28/19 08:28; Start 02/14/19 at 09:00 Acetaminophen (Tylenol) 325 mg PRN Q4HRS PRN PO PAIN / TEMP Last administered on 02/17/19 22:37; Start 02/16/19 at 02:15 Throat Lozenges (Chloraseptic) 1 spray PRN Q2HR PRN PO SORE THROAT Last administered on 02/17/19 10:20; Start 02/16/19 at 18:30 Throat Lozenges (Cepacol Sore Throat Lozenge) 1 tez PRN Q2HR PRN PO SORE THROAT Last administered on 02/16/19 22:39; Start 02/16/19 at 18:45 Polyethylene Glycol (miraLAX) 17 gm PRN DAILY PRN PO CONSTIPATION Last administered on 02/20/19 08:11; Start 02/17/19 at 17:45 Polyethylene Glycol (miraLAX) 17 gm PRN DAILY PRN PO CONSTIPATION; Start 02/19/19 at 20:00; Stop 03/02/19 at 07:27; Status DC Risperidone (RisperDAL) 0.75 mg DAILY SL Last administered on 02/26/19 10:13; Start 02/24/19 at 09:00; Stop 02/26/19 at 17:03; Status DC Risperidone (RisperDAL) 0.5 mg DAILY SL Last administered on 03/03/19 13:23; Start 02/27/19 at 09:00 Active Scripts Active Reported Tylenol (Acetaminophen) 325 Mg Tablet 1 Tab PO PRN Q4HRS Senna Laxative Tablet (Sennosides/Docusate Sodium) 1 Each Tablet 1 Each PO HS Milk Of Magnesia (Magnesium Hydroxide) 2,400 Mg/10 Ml Oral.susp 2,400 Mg PO PRN Q24HRS PRN Lactulose 10 Gm/15 Ml Solution 30 Ml PO PRN Q24HRS PRN Laxative Suppository (Glycerin) 1 Each Supp.rect 1 Each RC PRN Q24HRS PRN Fleet Enema (Na Phos,M-B/Na Phos,Di-Ba) 133 Ml Enema 133 Ml RC PRN Q24HRS PRN Colace (Docusate Sodium) 100 Mg Capsule 100 Mg PO DAILY I have reviewed the current psychotropics carefully including drug interactions. Risk benefit ratio favors no change other than as noted in my dictated progress note. Diagnosis: Problems: (1) Anxiety disorder (2) Bipolar affective, mixed, sev w/ psych (3) Impulse control disorder (4) Schizoaffective disorder, chronic condition with acute exacerbation RASHAWN GRAVES MD Mar 03, 2019 22:35
[2019-03-04 05:36] VITALS: BP 136/81
[2019-03-04] MEDS: DOCUSATE SODIUM 100 MG CAPSULE PO SCH (08:15)
[2019-03-04] MEDS: risperiDONE ORAL 1 MG/ML 30ml BOTTLE. SL SCH (08:16)
[2019-03-04 16:24] VITALS: BP 114/75
[2019-03-04] MEDS: SENNOSIDES/DOCUSATE 8.6/50MG TABLET. PO SCH (19:10)
--- NOTE | 2019-03-04 22:40 | PDOC ---
Exam Note: Hakan Note: Please also refer to the separate dictated note~for this date of service dictated separately.~Patient seen individually. Discussed the patient with Nursing staff reviewed the chart.~Reviewed interim history and current functioning. Reviewed vital signs,~Labs/ Radiology~and current medications noted below. Continue current treatment with the changes noted in the dictated addendum note Assessment: Vital Signs: Vital Signs Date Time Temp Pulse Resp B/P (MAP) Pulse Ox O2 Delivery O2 Flow Rate FiO2 03/04/19 16:24 98.4 72 18 114/75 (88) 97 03/01/19 16:08 Room Air I&O Intake and Output 03/04/19 07:00 Intake Total 920 ml Balance 920 ml Intake Oral 920 ml Current Medications: Meds: Current Medications Sodium Chloride 1,000 ml @ 1,000 mls/hr Q1H IV Last administered on 02/10/19at 20:18; Start 02/10/19 at 20:11; Stop 02/10/19 at 21:59; Status DC Acetaminophen (Tylenol) 650 mg PRN Q6HRS PRN PO PAIN / TEMP; Start 02/11/19 at 01:00; Status Cancel Multi-Ingredient Ointment (Analgesic [place]) 1 kyle PRN QID PRN TP MUSCLE PAIN; Start 02/11/19 at 01:00 Al Hydroxide/Mg Hydroxide (Mylanta Plus Xs) 15 ml PRN AFTMEALHC PRN PO DYSPEPSIA; Start 02/11/19 at 01:00 Magnesium Hydroxide (Milk Of Magnesia) 2,400 mg PRN QHS PRN PO CONSTIPATION; Start 02/11/19 at 01:00; Status Cancel Acetaminophen (Tylenol) 325 mg PRN Q4HRS PO ; Start 02/11/19 at 05:30; Stop 02/16/19 at 02:07; Status DC Sodium Biphosphate/ Sodium Phosphate (Fleet Adult) 133 ml PRN Q24HRS PRN RC CONSTIPATION; Start 02/11/19 at 05:30 Senna/Docusate Sodium (Senna Plus) 1 tab HS PO Last administered on 03/04/19at 19:10; Start 02/11/19 at 21:00 Docusate Sodium (Colace) 100 mg DAILY PO Last administered on 03/04/19at 08:15; Start 02/11/19 at 09:00 Glycerin (Sani-Supp Adult) 1 supp PRN Q24HRS PRN RC CONSTIPATION; Start 02/11/19 at 05:30 Lactulose (Lactulose) 20 gm PRN Q24HRS PRN PO CONSTIPATION; Start 02/11/19 at 05:30 Magnesium Hydroxide (Milk Of Magnesia) 2,400 mg PRN Q24HRS PRN PO CONSTIPATION Last administered on 02/17/19 20:38; Start 02/11/19 at 05:30 Risperidone (RisperDAL) 1 mg DAILY SL Last administered on 02/23/19 07:58; Start 02/12/19 at 09:00; Stop 02/24/19 at 00:18; Status DC Risperidone (RisperDAL CONSTA) 25 mg Q2WKS IM Last administered on 02/28/19 08:28; Start 02/14/19 at 09:00 Acetaminophen (Tylenol) 325 mg PRN Q4HRS PRN PO PAIN / TEMP Last administered on 02/17/19 22:37; Start 02/16/19 at 02:15 Throat Lozenges (Chloraseptic) 1 spray PRN Q2HR PRN PO SORE THROAT Last administered on 02/17/19 10:20; Start 02/16/19 at 18:30 Throat Lozenges (Cepacol Sore Throat Lozenge) 1 tez PRN Q2HR PRN PO SORE THROAT Last administered on 02/16/19 22:39; Start 02/16/19 at 18:45 Polyethylene Glycol (miraLAX) 17 gm PRN DAILY PRN PO CONSTIPATION Last administered on 02/20/19 08:11; Start 02/17/19 at 17:45 Polyethylene Glycol (miraLAX) 17 gm PRN DAILY PRN PO CONSTIPATION; Start 02/19/19 at 20:00; Stop 03/02/19 at 07:27; Status DC Risperidone (RisperDAL) 0.75 mg DAILY SL Last administered on 02/26/19 10:13; Start 02/24/19 at 09:00; Stop 02/26/19 at 17:03; Status DC Risperidone (RisperDAL) 0.5 mg DAILY SL Last administered on 03/04/19 08:16; Start 02/27/19 at 09:00 Active Scripts Active Reported Tylenol (Acetaminophen) 325 Mg Tablet 1 Tab PO PRN Q4HRS Senna Laxative Tablet (Sennosides/Docusate Sodium) 1 Each Tablet 1 Each PO HS Milk Of Magnesia (Magnesium Hydroxide) 2,400 Mg/10 Ml Oral.susp 2,400 Mg PO PRN Q24HRS PRN Lactulose 10 Gm/15 Ml Solution 30 Ml PO PRN Q24HRS PRN Laxative Suppository (Glycerin) 1 Each Supp.rect 1 Each RC PRN Q24HRS PRN Fleet Enema (Na Phos,M-B/Na Phos,Di-Ba) 133 Ml Enema 133 Ml RC PRN Q24HRS PRN Colace (Docusate Sodium) 100 Mg Capsule 100 Mg PO DAILY I have reviewed the current psychotropics carefully including drug interactions. Risk benefit ratio favors no change other than as noted in my dictated progress note. Diagnosis: Problems: (1) Anxiety disorder (2) Bipolar affective, mixed, sev w/ psych (3) Impulse control disorder (4) Schizoaffective disorder, chronic condition with acute exacerbation RASHAWN GRAVES MD Mar 04, 2019 22:40
--- NOTE | 2019-03-05 04:36 | PN ---
DATE: 03/03/2019 PSYCHIATRIC PROGRESS NOTE This late entry 03/03 covers elements not covered in my initial note. SUBJECTIVE: I met with the patient evening of 03/03. The patient slept 6 hours previous night. I met with him in his room. He has been refusing his oral medications, but as I met with him, he stated he will restart taking all his oral medications since he was told that [facility] [place], [place] may not take him back unless he is compliant with his treatment. REVIEW OF SYSTEMS: Ambulation impaired, in wheelchair due to bilateral below-knee amputation. No CV, , pulmonary, eye system symptoms on review. MENTAL STATUS EXAM: Reasonably oriented. Speech is coherent, abstraction fair, computation impaired, language function intact, attention span short. Mood and affect is improved. His psychotic symptoms appear to have subsided fairly nicely. Still a little dysphoric, but so long as he takes the oral Risperdal, we may then consider an SSRI agent as well or it could be done back at the [facility]. No other change from a psychiatric standpoint. MAN Enrique GRAVES MD DR: COLTEN/carey JOB#: [id number] / [id number]
[2019-03-05 05:54] VITALS: BP 144/79
[2019-03-05] MEDS: DOCUSATE SODIUM 100 MG CAPSULE PO SCH (07:56)
[2019-03-05] MEDS: risperiDONE ORAL 1 MG/ML 30ml BOTTLE. SL SCH (07:56)
[2019-03-05 15:40] VITALS: BP 133/82
[2019-03-05] MEDS: SENNOSIDES/DOCUSATE 8.6/50MG TABLET. PO SCH (19:06)
--- NOTE | 2019-03-05 22:54 | PN ---
DATE: 03/04/2019 PSYCHIATRIC PROGRESS NOTE This late entry, 03/04/2019, covers elements not covered in my initial note. SUBJECTIVE: I met with the patient in the evening. The patient slept 8-1/4 hours previous night. He has been taking his medications whole orally, which is quite a significant improvement. REVIEW OF SYSTEMS: Ambulation impaired, in wheelchair. No CV, , pulmonary, eye, ENT system symptoms on review. MENTAL STATUS EXAM: Oriented reasonably. Speech is coherent, has some latency. Abstraction fair, computation impaired, language function intact, attention span short. Mood and affect is improved. Generally doing better. LABORATORY DATA: Reviewed. IMPRESSION: Unchanged from initial note. PLAN: No change from initial note. Continue to encourage compliance with oral psychotropics. MAN Enrique GRAVES MD DR: COLTEN/carey JOB#: [id number] / [id number]
--- NOTE | 2019-03-05 22:57 | PDOC ---
Exam Note: Hakan Note: Please also refer to the separate dictated note~for this date of service dictated separately.~Patient seen individually. Discussed the patient with Nursing staff reviewed the chart.~Reviewed interim history and current functioning. Reviewed vital signs,~Labs/ Radiology~and current medications noted below. Continue current treatment with the changes noted in the dictated addendum note Assessment: Vital Signs: Vital Signs Date Time Temp Pulse Resp B/P (MAP) Pulse Ox O2 Delivery O2 Flow Rate FiO2 03/05/19 15:40 97.3 71 16 133/82 (99) 97 03/01/19 16:08 Room Air I&O Intake and Output 03/05/19 06:59 Intake Total 1060 ml Balance 1060 ml Intake Oral 1060 ml Current Medications: Meds: Current Medications Sodium Chloride 1,000 ml @ 1,000 mls/hr Q1H IV Last administered on 02/10/19at 20:18; Start 02/10/19 at 20:11; Stop 02/10/19 at 21:59; Status DC Acetaminophen (Tylenol) 650 mg PRN Q6HRS PRN PO PAIN / TEMP; Start 02/11/19 at 01:00; Status Cancel Multi-Ingredient Ointment (Analgesic [place]) 1 kyle PRN QID PRN TP MUSCLE PAIN; Start 02/11/19 at 01:00 Al Hydroxide/Mg Hydroxide (Mylanta Plus Xs) 15 ml PRN AFTMEALHC PRN PO DYSPEPSIA; Start 02/11/19 at 01:00 Magnesium Hydroxide (Milk Of Magnesia) 2,400 mg PRN QHS PRN PO CONSTIPATION; Start 02/11/19 at 01:00; Status Cancel Acetaminophen (Tylenol) 325 mg PRN Q4HRS PO ; Start 02/11/19 at 05:30; Stop 02/16/19 at 02:07; Status DC Sodium Biphosphate/ Sodium Phosphate (Fleet Adult) 133 ml PRN Q24HRS PRN RC CONSTIPATION; Start 02/11/19 at 05:30 Senna/Docusate Sodium (Senna Plus) 1 tab HS PO Last administered on 03/05/19at 19:06; Start 02/11/19 at 21:00 Docusate Sodium (Colace) 100 mg DAILY PO Last administered on 03/05/19at 07:56; Start 02/11/19 at 09:00 Glycerin (Sani-Supp Adult) 1 supp PRN Q24HRS PRN RC CONSTIPATION; Start 02/11/19 at 05:30 Lactulose (Lactulose) 20 gm PRN Q24HRS PRN PO CONSTIPATION; Start 02/11/19 at 05:30 Magnesium Hydroxide (Milk Of Magnesia) 2,400 mg PRN Q24HRS PRN PO CONSTIPATION Last administered on 02/17/19 20:38; Start 02/11/19 at 05:30 Risperidone (RisperDAL) 1 mg DAILY SL Last administered on 02/23/19 07:58; Start 02/12/19 at 09:00; Stop 02/24/19 at 00:18; Status DC Risperidone (RisperDAL CONSTA) 25 mg Q2WKS IM Last administered on 02/28/19 08:28; Start 02/14/19 at 09:00 Acetaminophen (Tylenol) 325 mg PRN Q4HRS PRN PO PAIN / TEMP Last administered on 02/17/19 22:37; Start 02/16/19 at 02:15 Throat Lozenges (Chloraseptic) 1 spray PRN Q2HR PRN PO SORE THROAT Last administered on 02/17/19 10:20; Start 02/16/19 at 18:30 Throat Lozenges (Cepacol Sore Throat Lozenge) 1 tez PRN Q2HR PRN PO SORE THROAT Last administered on 02/16/19 22:39; Start 02/16/19 at 18:45 Polyethylene Glycol (miraLAX) 17 gm PRN DAILY PRN PO CONSTIPATION Last administered on 02/20/19 08:11; Start 02/17/19 at 17:45 Polyethylene Glycol (miraLAX) 17 gm PRN DAILY PRN PO CONSTIPATION; Start 02/19/19 at 20:00; Stop 03/02/19 at 07:27; Status DC Risperidone (RisperDAL) 0.75 mg DAILY SL Last administered on 02/26/19 10:13; Start 02/24/19 at 09:00; Stop 02/26/19 at 17:03; Status DC Risperidone (RisperDAL) 0.5 mg DAILY SL Last administered on 03/05/19 07:56; Start 02/27/19 at 09:00 Active Scripts Active Reported Tylenol (Acetaminophen) 325 Mg Tablet 1 Tab PO PRN Q4HRS Senna Laxative Tablet (Sennosides/Docusate Sodium) 1 Each Tablet 1 Each PO HS Milk Of Magnesia (Magnesium Hydroxide) 2,400 Mg/10 Ml Oral.susp 2,400 Mg PO PRN Q24HRS PRN Lactulose 10 Gm/15 Ml Solution 30 Ml PO PRN Q24HRS PRN Laxative Suppository (Glycerin) 1 Each Supp.rect 1 Each RC PRN Q24HRS PRN Fleet Enema (Na Phos,M-B/Na Phos,Di-Ba) 133 Ml Enema 133 Ml RC PRN Q24HRS PRN Colace (Docusate Sodium) 100 Mg Capsule 100 Mg PO DAILY I have reviewed the current psychotropics carefully including drug interactions. Risk benefit ratio favors no change other than as noted in my dictated progress note. Diagnosis: Problems: (1) Anxiety disorder (2) Bipolar affective, mixed, sev w/ psych (3) Impulse control disorder (4) Schizoaffective disorder, chronic condition with acute exacerbation RASHAWN GRAVES MD Mar 05, 2019 22:57
[2019-03-06 06:14] VITALS: BP 121/77
[2019-03-06] MEDS: DOCUSATE SODIUM 100 MG CAPSULE PO SCH ×2 (07:53→08:44)
[2019-03-06] MEDS: risperiDONE ORAL 1 MG/ML 30ml BOTTLE. SL SCH (07:53)
[2019-03-06 16:00] VITALS: BP 123/77
[2019-03-06] MEDS: SENNOSIDES/DOCUSATE 8.6/50MG TABLET. PO SCH (19:34)
--- NOTE | 2019-03-06 22:18 | PDOC ---
Exam Note: Hakan Note: Please also refer to the separate dictated note~for this date of service dictated separately.~Patient seen individually. Discussed the patient with Nursing staff reviewed the chart.~Reviewed interim history and current functioning. Reviewed vital signs,~Labs/ Radiology~and current medications noted below. Continue current treatment with the changes noted in the dictated addendum note Assessment: Vital Signs: Vital Signs Date Time Temp Pulse Resp B/P (MAP) Pulse Ox O2 Delivery O2 Flow Rate FiO2 03/06/19 16:00 97.7 64 18 123/77 (92) 95 03/06/19 06:14 Room Air I&O Intake and Output 03/06/19 07:00 Intake Total 840 ml Balance 840 ml Intake Oral 840 ml # Bowel Movements 1 Current Medications: Meds: Current Medications Sodium Chloride 1,000 ml @ 1,000 mls/hr Q1H IV Last administered on 02/10/19at 20:18; Start 02/10/19 at 20:11; Stop 02/10/19 at 21:59; Status DC Acetaminophen (Tylenol) 650 mg PRN Q6HRS PRN PO PAIN / TEMP; Start 02/11/19 at 01:00; Status Cancel Multi-Ingredient Ointment (Analgesic Kersey) 1 kyle PRN QID PRN TP MUSCLE PAIN; Start 02/11/19 at 01:00 Al Hydroxide/Mg Hydroxide (Mylanta Plus Xs) 15 ml PRN AFTMEALHC PRN PO DYSPEPSIA; Start 02/11/19 at 01:00 Magnesium Hydroxide (Milk Of Magnesia) 2,400 mg PRN QHS PRN PO CONSTIPATION; Start 02/11/19 at 01:00; Status Cancel Acetaminophen (Tylenol) 325 mg PRN Q4HRS PO ; Start 02/11/19 at 05:30; Stop 02/16/19 at 02:07; Status DC Sodium Biphosphate/ Sodium Phosphate (Fleet Adult) 133 ml PRN Q24HRS PRN RC CONSTIPATION; Start 02/11/19 at 05:30 Senna/Docusate Sodium (Senna Plus) 1 tab HS PO Last administered on 03/06/19at 19:34; Start 02/11/19 at 21:00 Docusate Sodium (Colace) 100 mg DAILY PO Last administered on 03/05/19at 07:56; Start 02/11/19 at 09:00 Glycerin (Sani-Supp Adult) 1 supp PRN Q24HRS PRN RC CONSTIPATION; Start 02/11/19 at 05:30 Lactulose (Lactulose) 20 gm PRN Q24HRS PRN PO CONSTIPATION; Start 02/11/19 at 05:30 Magnesium Hydroxide (Milk Of Magnesia) 2,400 mg PRN Q24HRS PRN PO CONSTIPATION Last administered on 02/17/19 20:38; Start 02/11/19 at 05:30 Risperidone (RisperDAL) 1 mg DAILY SL Last administered on 02/23/19 07:58; Start 02/12/19 at 09:00; Stop 02/24/19 at 00:18; Status DC Risperidone (RisperDAL CONSTA) 25 mg Q2WKS IM Last administered on 02/28/19 08:28; Start 02/14/19 at 09:00 Acetaminophen (Tylenol) 325 mg PRN Q4HRS PRN PO PAIN / TEMP Last administered on 02/17/19 22:37; Start 02/16/19 at 02:15 Throat Lozenges (Chloraseptic) 1 spray PRN Q2HR PRN PO SORE THROAT Last administered on 02/17/19 10:20; Start 02/16/19 at 18:30 Throat Lozenges (Cepacol Sore Throat Lozenge) 1 tez PRN Q2HR PRN PO SORE THROAT Last administered on 02/16/19 22:39; Start 02/16/19 at 18:45 Polyethylene Glycol (miraLAX) 17 gm PRN DAILY PRN PO CONSTIPATION Last administered on 02/20/19 08:11; Start 02/17/19 at 17:45 Polyethylene Glycol (miraLAX) 17 gm PRN DAILY PRN PO CONSTIPATION; Start 02/19/19 at 20:00; Stop 03/02/19 at 07:27; Status DC Risperidone (RisperDAL) 0.75 mg DAILY SL Last administered on 02/26/19 10:13; Start 02/24/19 at 09:00; Stop 02/26/19 at 17:03; Status DC Risperidone (RisperDAL) 0.5 mg DAILY SL Last administered on 03/06/19 07:53; Start 02/27/19 at 09:00 Active Scripts Active Reported Tylenol (Acetaminophen) 325 Mg Tablet 1 Tab PO PRN Q4HRS Senna Laxative Tablet (Sennosides/Docusate Sodium) 1 Each Tablet 1 Each PO HS Milk Of Magnesia (Magnesium Hydroxide) 2,400 Mg/10 Ml Oral.susp 2,400 Mg PO PRN Q24HRS PRN Lactulose 10 Gm/15 Ml Solution 30 Ml PO PRN Q24HRS PRN Laxative Suppository (Glycerin) 1 Each Supp.rect 1 Each RC PRN Q24HRS PRN Fleet Enema (Na Phos,M-B/Na Phos,Di-Ba) 133 Ml Enema 133 Ml RC PRN Q24HRS PRN Colace (Docusate Sodium) 100 Mg Capsule 100 Mg PO DAILY I have reviewed the current psychotropics carefully including drug interactions. Risk benefit ratio favors no change other than as noted in my dictated progress note. Diagnosis: Problems: (1) Anxiety disorder (2) Bipolar affective, mixed, sev w/ psych (3) Impulse control disorder (4) Schizoaffective disorder, chronic condition with acute exacerbation RASHAWN GRAVES MD Mar 06, 2019 22:18
[2019-03-07 06:33] VITALS: BP 130/78
[2019-03-07] MEDS: risperiDONE ORAL 1 MG/ML 30ml BOTTLE. SL SCH (10:17)
[2019-03-07] MEDS: DOCUSATE SODIUM 100 MG CAPSULE PO SCH (10:17)
[2019-03-07 15:19] VITALS: BP 121/77
--- NOTE | 2019-03-07 15:54 | PN ---
DATE: 03/05/2019 PSYCHIATRIC PROGRESS NOTE This late entry, 03/05/2019, covers elements not covered in my initial note. SUBJECTIVE: I met with the patient evening of 03/05/2019. The patient slept 7-1/2 hours previous night. He is compliant with his medications, which is an improvement for him. He is spending more time in day room on the television watching along with the others. REVIEW OF SYSTEMS: Ambulation impaired, in wheelchair due to bilateral below-knee amputation. No CV, , pulmonary, eye system symptoms on review. MENTAL STATUS EXAM: Reasonably oriented. Speech has some latency, coherent. Abstraction fair, computation impaired, language function intact, attention span short. Mood and affect somewhat withdrawn. LABORATORY DATA: Reviewed. IMPRESSION: Unchanged from initial note. PLAN: No change from initial note. MAN Enrique GRAVES MD DR: COLTEN/carey JOB#: [id number] / [id number]
[2019-03-07] MEDS: SENNOSIDES/DOCUSATE 8.6/50MG TABLET. PO SCH (20:29)
--- NOTE | 2019-03-07 22:40 | PDOC ---
Exam Note: Hakan Note: Please also refer to the separate dictated note~for this date of service dictated separately.~Patient seen individually. Discussed the patient with Nursing staff reviewed the chart.~Reviewed interim history and current functioning. Reviewed vital signs,~Labs/ Radiology~and current medications noted below. Continue current treatment with the changes noted in the dictated addendum note Assessment: Vital Signs/I&O: Vital Signs Date Time Temp Pulse Resp B/P (MAP) Pulse Ox O2 Delivery O2 Flow Rate FiO2 03/07/19 15:19 97.8 67 20 121/77 (92) 97 03/07/19 06:33 Room Air I & O 03/06/19 03/06/19 03/07/19 15:00 23:00 07:00 Intake Total 720 ml 360 ml Balance 720 ml 360 ml Current Medications: I have reviewed the current psychotropics carefully including drug interactions. Risk benefit ratio favors no change other than as noted in my dictated progress note. Diagnosis: Problems: (1) Anxiety disorder (2) Bipolar affective, mixed, sev w/ psych (3) Impulse control disorder (4) Schizoaffective disorder, chronic condition with acute exacerbation RASHAWN GRAVES MD Mar 07, 2019 22:40
--- NOTE | 2019-03-08 00:10 | PN ---
DATE: 03/06/2019 PSYCHIATRIC PROGRESS NOTE This late entry 03/06/2019 covers elements not covered in my initial note. SUBJECTIVE: I met with the patient in the evening. The patient slept 8 hours previous night. He has been taking his medications whole, which is quite an improvement. REVIEW OF SYSTEMS: Ambulation impaired, in wheelchair. No CV, , pulmonary, eye, ENT system symptoms on review. He does have bilateral below-knee amputation. MENTAL STATUS EXAM: Oriented reasonably. Speech has some latency, coherent. Abstraction fair, computation impaired, language function intact, attention span short. Mood and affect showing improvement, less psychotic. No aggression. No suicidal ideation. LABORATORY DATA: Reviewed. IMPRESSION: Unchanged from initial note. PLAN: No change from initial note. MAN Enrique GRAVES MD DR: COLTEN/carey JOB#: [id number] / [id number]
[2019-03-08 05:39] VITALS: BP 122/76
[2019-03-08] MEDS: DOCUSATE SODIUM 100 MG CAPSULE PO SCH (08:21)
[2019-03-08] MEDS: risperiDONE ORAL 1 MG/ML 30ml BOTTLE. SL SCH (08:21)
[2019-03-08 10:18] LABS: ALBUMIN 3.2 g/dL (3.4-5.0); CREATININE 1.1 mg/dL (0.7-1.3); GFR 68.1; POTASSIUM 4.1 mmol/L (3.5-5.1); TOTAL BILIRUBIN 0.4 mg/dL (0.2-1.0); TOTAL PROTEIN 6.5 g/dL (6.4-8.2)
[2019-03-08 10:23] LABS: BASO % 1 % (0-3); EOS # 0.1 x10^3/uL (0.0-0.7); EOS % 2 % (0-3); HEMATOCRIT 41.9 % (39.0-53.0); HEMOGLOBIN 14.2 g/dL (13.0-17.5); LYMPH # 0.8 x10^3/uL (1.0-4.8); LYMPH % 15 % (24-48); MEAN CORPUSCULAR HEMOGLOBIN 31 pg (25-35); MEAN CORPUSCULAR HGB CONC 34 g/dL (31-37); MEAN CORPUSCULAR VOLUME 92 fL (79-100); MONO # 0.3 x10^3/uL (0.0-1.1); MONO % 6 % (0-9); NEUT # 4.2 x10^3uL (1.8-7.7); NEUT % 76 % (31-73); PLATELET COUNT 255 x10^3/uL (140-400); RED BLOOD COUNT 4.57 x10^6/uL (4.30-5.70); RED CELL DISTRIBUTION WIDTH 14.1 % (11.5-14.5); WHITE BLOOD COUNT 5.5 x10^3/uL (4.0-11.0)
[2019-03-08 15:41] VITALS: BP 112/70
[2019-03-08] MEDS: SENNOSIDES/DOCUSATE 8.6/50MG TABLET. PO SCH (19:23)
--- NOTE | 2019-03-08 22:49 | PDOC ---
Exam Note: Hakan Note: Please also refer to the separate dictated note~for this date of service dictated separately.~Patient seen individually. Discussed the patient with Nursing staff reviewed the chart.~Reviewed interim history and current functioning. Reviewed vital signs,~Labs/ Radiology~and current medications noted below. Continue current treatment with the changes noted in the dictated addendum note Assessment: Vital Signs/I&O: Vital Signs Date Time Temp Pulse Resp B/P (MAP) Pulse Ox O2 Delivery O2 Flow Rate FiO2 03/08/19 15:41 98.2 64 16 112/70 (84) 98 03/08/19 05:39 Room Air I & O 03/07/19 03/07/19 03/08/19 14:59 22:59 06:59 Intake Total 480 ml 120 ml Balance 480 ml 120 ml Labs: Laboratory Tests Test 03/08/19 09:04 White Blood Count 5.5 x10^3/uL (4.0-11.0) Red Blood Count 4.57 x10^6/uL (4.30-5.70) Hemoglobin 14.2 g/dL (13.0-17.5) Hematocrit 41.9 % (39.0-53.0) Mean Corpuscular Volume 92 fL (79-100) Mean Corpuscular Hemoglobin 31 pg (25-35) Mean Corpuscular Hemoglobin Concent 34 g/dL (31-37) Red Cell Distribution Width 14.1 % (11.5-14.5) Platelet Count 255 x10^3/uL (140-400) Neutrophils (%) (Auto) 76 % (31-73) H Lymphocytes (%) (Auto) 15 % (24-48) L Monocytes (%) (Auto) 6 % (0-9) Eosinophils (%) (Auto) 2 % (0-3) Basophils (%) (Auto) 1 % (0-3) Neutrophils # (Auto) 4.2 x10^3uL (1.8-7.7) Lymphocytes # (Auto) 0.8 x10^3/uL (1.0-4.8) L Monocytes # (Auto) 0.3 x10^3/uL (0.0-1.1) Eosinophils # (Auto) 0.1 x10^3/uL (0.0-0.7) Basophils # (Auto) 0.0 x10^3/uL (0.0-0.2) Sodium Level 141 mmol/L (136-145) Potassium Level 4.1 mmol/L (3.5-5.1) Chloride Level 105 mmol/L (98-107) Carbon Dioxide Level 33 mmol/L (21-32) H Anion Gap 3 (6-14) L Blood Urea Nitrogen 21 mg/dL (8-26) Creatinine 1.1 mg/dL (0.7-1.3) Estimated GFR (Cockcroft-Gault) 68.1 BUN/Creatinine Ratio 19 (6-20) Glucose Level 113 mg/dL (70-99) H Calcium Level 9.0 mg/dL (8.5-10.1) Total Bilirubin 0.4 mg/dL (0.2-1.0) Aspartate Amino Transferase (AST) 12 U/L (15-37) L Alanine Aminotransferase (ALT) 19 U/L (16-63) Alkaline Phosphatase 97 U/L (46-116) Total Protein 6.5 g/dL (6.4-8.2) Albumin 3.2 g/dL (3.4-5.0) L Albumin/Globulin Ratio 1.0 (1.0-1.7) Current Medications: I have reviewed the current psychotropics carefully including drug interactions. Risk benefit ratio favors no change other than as noted in my dictated progress note. Diagnosis: Problems: (1) Anxiety disorder (2) Bipolar affective, mixed, sev w/ psych (3) Impulse control disorder (4) Schizoaffective disorder, chronic condition with acute exacerbation RASHAWN GRAVES MD Mar 08, 2019 22:49
[2019-03-09 05:43] VITALS: BP 127/82
[2019-03-09] MEDS: risperiDONE ORAL 1 MG/ML 30ml BOTTLE. SL SCH (08:03)
[2019-03-09] MEDS: DOCUSATE SODIUM 100 MG CAPSULE PO SCH (08:03)
[2019-03-09 15:28] VITALS: BP 136/83
[2019-03-09] MEDS: SENNOSIDES/DOCUSATE 8.6/50MG TABLET. PO SCH ×2 (19:54→21:00)
--- NOTE | 2019-03-09 21:54 | PN ---
DATE: 03/07/2019 PSYCHIATRIC PROGRESS NOTE This late entry on 03/07/2019 covers elements not covered in my initial note. SUBJECTIVE: I met with the patient in the evening. The patient slept reasonably well previous night. He takes his medications whole, which is quite an improvement for him. REVIEW OF SYSTEMS: Ambulation impaired due to bilateral below-knee amputation. He is in a wheelchair. No CV, , pulmonary, eye, ENT system symptoms on review. MENTAL STATUS EXAM: Oriented to himself and situation. Speech is coherent, abstraction fair, computation impaired, language function intact, attention span short. Mood and affect is still withdrawn, but improved. No suicidal ideation. LABORATORY DATA: Reviewed. IMPRESSION: Unchanged from initial note. PLAN: No change from initial note. MAN Enrique GRAVES MD DR: COLTEN/carey JOB#: [id number] / [id number]
--- NOTE | 2019-03-09 22:13 | PN ---
DATE: 03/08/2019 PSYCHIATRIC PROGRESS NOTE This late entry of 03/08 covers elements not covered in my initial note. HISTORY OF PRESENT ILLNESS: I met with the patient in the evening. The patient slept 7-1/4 hours previous night. He has been more out of his room in the morning, but in the afternoon, he is back in his room. REVIEW OF SYSTEMS: Ambulation impaired in wheelchair due to bilateral below-knee amputation. No CV, , pulmonary, eye, ENT system symptoms on review. MENTAL STATUS EXAM: Oriented to himself and situation. Speech has some latency, coherent. Abstraction fair, computation impaired, language function intact. Mood and affect is improved. LABORATORY DATA: Reviewed. IMPRESSION: Unchanged from initial note. PLAN: No change from initial note. MAN Enrique GRAVES MD DR: COLTEN/carey JOB#: [id number] / [id number]
--- NOTE | 2019-03-09 22:15 | PDOC ---
Exam Note: Hakan Note: Please also refer to the separate dictated note~for this date of service dictated separately.~Patient seen individually. Discussed the patient with Nursing staff reviewed the chart.~Reviewed interim history and current functioning. Reviewed vital signs,~Labs/ Radiology~and current medications noted below. Continue current treatment with the changes noted in the dictated addendum note Assessment: Vital Signs/I&O: Vital Signs Date Time Temp Pulse Resp B/P (MAP) Pulse Ox O2 Delivery O2 Flow Rate FiO2 03/09/19 15:28 97.5 66 17 136/83 (100) 98 03/08/19 05:39 Room Air I & O 03/08/19 03/08/19 03/09/19 15:00 23:00 07:00 Intake Total 600 ml 120 ml 120 ml Balance 600 ml 120 ml 120 ml Current Medications: I have reviewed the current psychotropics carefully including drug interactions. Risk benefit ratio favors no change other than as noted in my dictated progress note. Diagnosis: Problems: (1) Anxiety disorder (2) Bipolar affective, mixed, sev w/ psych (3) Impulse control disorder (4) Schizoaffective disorder, chronic condition with acute exacerbation RASHAWN GRAVES MD Mar 09, 2019 22:15
[2019-03-10 06:03] VITALS: BP 160/92
[2019-03-10] MEDS: risperiDONE ORAL 1 MG/ML 30ml BOTTLE. SL SCH (08:20)
[2019-03-10] MEDS: DOCUSATE SODIUM 100 MG CAPSULE PO SCH (08:20)
[2019-03-10 15:59] VITALS: BP 130/78
[2019-03-10] MEDS: SENNOSIDES/DOCUSATE 8.6/50MG TABLET. PO SCH ×2 (19:44→19:49)
--- NOTE | 2019-03-10 22:30 | PDOC ---
Exam Note: Hakan Note: Please also refer to the separate dictated note~for this date of service dictated separately.~Patient seen individually. Discussed the patient with Nursing staff reviewed the chart.~Reviewed interim history and current functioning. Reviewed vital signs,~Labs/ Radiology~and current medications noted below. Continue current treatment with the changes noted in the dictated addendum note Assessment: Vital Signs/I&O: Vital Signs Date Time Temp Pulse Resp B/P (MAP) Pulse Ox O2 Delivery O2 Flow Rate FiO2 03/10/19 15:59 97.7 59 16 130/78 (95) 98 03/08/19 05:39 Room Air I & O 03/09/19 03/09/19 03/10/19 14:59 22:59 06:59 Intake Total 480 ml 240 ml 100 ml Balance 480 ml 240 ml 100 ml Current Medications: I have reviewed the current psychotropics carefully including drug interactions. Risk benefit ratio favors no change other than as noted in my dictated progress note. Diagnosis: Problems: (1) Anxiety disorder (2) Bipolar affective, mixed, sev w/ psych (3) Impulse control disorder (4) Schizoaffective disorder, chronic condition with acute exacerbation RASHAWN GRAVES MD Mar 10, 2019 22:30
[2019-03-11] MEDS ORDERED: BENZ1LOZ48 MM (01:20)
[2019-03-11] MEDS ORDERED: MAG30ORA2 PO (01:21)
[2019-03-11] MEDS ORDERED: METH29OI TP (01:21)
[2019-03-11] MEDS ORDERED: PHEN177S54 MM (01:22)
[2019-03-11] MEDS ORDERED: POLY17PO5 PO (01:23)
[2019-03-11] MEDS ORDERED: RISP37.5 IM (01:24)
[2019-03-11] MEDS ORDERED: [UNRECOGNIZED DRUG - CODE] PO (01:26)
--- NOTE | 2019-03-11 03:59 | PN ---
DATE: 03/09/2019 PSYCHIATRIC PROGRESS NOTE This late entry 03/09/2019 covers elements not covered in my initial note. SUBJECTIVE: I met with the patient in the evening. The patient slept 7 hours previous night. He has been more compliant with his oral medications, less anxious, still somewhat withdrawn but less so than before. REVIEW OF SYSTEMS: Ambulation impaired, in wheelchair due to bilateral below-knee amputation. No CV, , pulmonary, eye, or ENT system symptoms on review. MENTAL STATUS EXAM: Oriented to himself and situation. Speech has moderate latency, often responses monosyllabic. Abstraction fair, computation somewhat impaired, language function intact. Mood and affect is improved. IMPRESSION: Unchanged from initial note. PLAN: No change from initial note. MAN Enrique GRAVES MD DR: COLTEN/carey JOB#: [id number] / [id number]
[2019-03-11 05:47] VITALS: BP 144/78
[2019-03-11] MEDS: DOCUSATE SODIUM 100 MG CAPSULE PO SCH ×2 (08:09→09:00)
[2019-03-11] MEDS: risperiDONE ORAL 1 MG/ML 30ml BOTTLE. SL SCH (08:09)
--- NOTE | 2019-03-11 13:36 | PN ---
DATE: 03/10/2019 PSYCHIATRIC PROGRESS NOTE This late entry 03/10/2019 covers elements, not covered in my initial note. SUBJECTIVE: I met with the patient in the evening. The patient slept 7 hours previous night. He has been compliant with his medications, fairly cooperative, still somewhat withdrawn, but less so than before. REVIEW OF SYSTEMS: Ambulation impaired, in wheelchair, has bilateral below-knee amputation. No CV, , pulmonary, eye system symptoms on review. MENTAL STATUS EXAM: The patient is reasonably oriented. Speech has some latency, often responses monosyllabic, coherent. Abstraction fair, computation impaired, language function intact, attention span short. Mood and affect less withdrawn than before. LABORATORY DATA: Reviewed. IMPRESSION: Unchanged from initial note. PLAN: No change from initial note, but transition to [facility] on 03/11/2019. MAN Enrique GRAVES MD DR: COLTEN/carey JOB#: [id number] / [id number]
--- NOTE | 2019-03-11 18:19 | PDOC ---
Exam Note: Hakan Note: Please also refer to the separate dictated note~for this date of service dictated separately.~Patient seen individually. Discussed the patient with Nursing staff reviewed the chart.~Reviewed interim history and current functioning. Reviewed vital signs,~Labs/ Radiology~and current medications noted below. Continue current treatment with the changes noted in the dictated addendum note Assessment: Vital Signs/I&O: Vital Signs Date Time Temp Pulse Resp B/P (MAP) Pulse Ox O2 Delivery O2 Flow Rate FiO2 03/11/19 05:47 97.9 62 20 144/78 (100) 93 03/08/19 05:39 Room Air I & O 03/10/19 03/10/19 03/11/19 15:00 23:00 07:00 Intake Total 480 ml 240 ml 100 ml Balance 480 ml 240 ml 100 ml Current Medications: I have reviewed the current psychotropics carefully including drug interactions. Risk benefit ratio favors no change other than as noted in my dictated progress note. Diagnosis: Problems: (1) Impulse control disorder (2) Schizoaffective disorder, chronic condition with acute exacerbation (3) Bipolar affective, mixed, sev w/ psych (4) Anxiety disorder RASHAWN GRAVES MD Mar 11, 2019 18:19
--- NOTE | 2019-03-12 12:52 | DS ---
DATE OF DISCHARGE: 03/11/2019 This late entry of 03/11/2019 covers elements not covered in my initial note. REASON FOR ADMISSION: Please refer to the admission history for details. Briefly, the patient is a 63-year-old male referred to us from [facility] by his primary care physician on account of worsening symptoms of depression, suicidal ideation, and a plan to suffocate himself. The patient reportedly has a history of schizoaffective disorder, bipolar type, depressed with psychotic features versus schizophrenia. He had failed outpatient psychiatric interventions resulting in this referral. SIGNIFICANT FINDINGS AND CLINICAL COURSE: Following admission, the patient was seen daily individually by myself from a psychiatric standpoint. He was followed medically per Dr. Arriaga. He was extremely paranoid, delusional, suspicious, refusing all his psychotropic medications. He was started on oral Risperdal, was refusing it and then accepted the Risperdal Consta 25 mg IM q. 2 weeks. Few days after this, he accepted the oral Risperdal, which was initially increased up to 1 mg a day and then gradually reduced down to 0.5 mg daily with a plan to ultimately discontinue it over the next 3-4 months since he is on the intramuscular Consta. Consideration was given to adding an antidepressant as well but given his noncompliance, this was deferred and could be done once he is back at the [facility] and more compliant with his psychotropics. Lexapro could be an option increasing to about 10-20 mg a day. Nevertheless, once he took his psychotropics, he was much less paranoid. Mood appeared to improve. He was more compliant. He was still somewhat withdrawn, isolative, but not suicidal. Prior to discharge on 03/11/2019, ambulation impaired, in wheelchair due to bilateral below-knee amputation. No CV, , pulmonary, eye system symptoms on review. MENTAL STATUS EXAM: Reasonably oriented. Speech is coherent, has some latency, often responses monosyllabic. Abstraction fair, computation impaired, language function intact, attention span short. Mood and affect is improved. No suicidal ideation at discharge. FINAL DIAGNOSES: Schizoaffective disorder, bipolar type, depressed with psychotic features in partial remission; major depressive disorder with psychotic features in partial remission; anxiety disorder, unspecified. Rest unchanged from admission. DISCHARGE MEDICATIONS: Please refer to the [facility]. Outpatient psychiatric and medical followup at the [facility] with consideration for initiating Lexapro for mood symptoms as noted above. If mood lability resurfaces, Depakote as a mood stabilizer may be an option as well. Time for discharge day management greater than 30 minutes. MAN Enrique GRAVES MD DR: COLTEN/carey JOB#: [id number] / [id number]
== END 2019-03-11 13:25 | DRG 885 ==
LOC: ER 19:34 → GEROPSY 21:51
PROVIDERS: ADMIT Psychiatry & Neurology Psychiatry; ATTEND Psychiatry & Neurology Psychiatry
DX: F25.0 Schizoaffective disorder, bipolar type (principal); R45.851 Suicidal ideations; E03.9 Hypothyroidism, unspecified; F41.9 Anxiety disorder, unspecified; F31.60 Bipolar disorder, current episode mixed, unspecified; F63.9 Impulse disorder, unspecified; I10 Essential (primary) hypertension; K59.00 Constipation, unspecified; Z86.73 Personal history of transient ischemic attack (TIA), and cerebral infarction without residual deficits; Z89.519 Acquired absence of unspecified leg below knee; Z91.14 Patient's other noncompliance with medication regimen
CPT/HCPCS: 36415; 80053; 80061; 81001; 82607; 83036; 84436; 84443; 84480; 85025; 86592; 93005; 96360; 96361; G0480; J2794; 99285-25; J7030